=== PATIENT | female | born 1980 | race Caucasian/White ===

== ENCOUNTER 2017-01-03 07:34 | Emergency (ER) | payer OTHER ==
[2017-01-03] MEDS ORDERED: NITROFURANTOIN MACRO 100 MG CAPSULE PO STA (08:34)
[2017-01-03] MEDS ORDERED: NITROFURANTOIN MACRO 100 MG CAPSULE PO ONE (08:37)
== END 2017-01-03 08:48 | disposition home or self-care (01) ==
DX: N30.00 Acute cystitis without hematuria (principal); I10 Essential (primary) hypertension; E78.00 Pure hypercholesterolemia, unspecified; Z87.442 Personal history of urinary calculi; F17.200 Nicotine dependence, unspecified, uncomplicated
CPT/HCPCS: 81001; 87077; 87086; 87181; 99283; A9270

== ENCOUNTER 2017-04-25 16:29 | Outpatient (CLI) | payer OTHER ==
--- NOTE | 2017-04-26 10:47 | XRAY Report ---
THREE VIEW LEFT FIFTH TOE: 04/25/2017 CLINICAL INDICATION: Injury, pain. FINDINGS: AP, lateral, and oblique views of the left 5th toe demonstrate no evidence of fracture or dislocation. Soft tissue swelling is noted. No radiopaque foreign body is seen in the soft tissues. IMPRESSION: SOFT TISSUE SWELLING, BUT NO EVIDENCE OF FRACTURE. JOB #: [id number] EXT JOB #:[id number]
== END 2017-04-25 16:30 | disposition home or self-care (01) ==
LOC: DI 16:29
PROVIDERS: ATTEND Podiatrist
DX: S99.922A Unspecified injury of left foot, initial encounter (principal)
CPT/HCPCS: 73660

== ENCOUNTER 2017-06-28 20:25 | Emergency (ER) | payer OTHER ==
--- NOTE | 2017-06-28 21:05 | XRAY Preliminary Report ---
Exam: XR Chest 2 View PA/LAT IMPRESSION: Subtle right-sided infiltrates versus asymmetric bronchitis. [facility] SITE ID: [id number]
--- NOTE | 2017-06-28 21:08 | XRAY Report ---
EXAM: CHEST RADIOGRAPHY EXAM DATE: 06/28/2017 08:40 PM. CLINICAL HISTORY: Cough. COMPARISON: None. TECHNIQUE: 2 views. FINDINGS: Lungs/Pleura: Hazy increased interstitial markings in right base and suprahilar region with minimal p eribronchial cuffing. No consolidation, effusion, or pneumothorax. Clear left lung. Mediastinum: Heart and mediastinal contours are unremarkable. Upper lobe vessels not distended. Other: None. IMPRESSION: Subtle right-sided infiltrates versus asymmetric bronchitis. [facility] Referring Provider Line: [phone] SITE ID: [id number]
--- NOTE | 2017-06-28 21:31 | ED Physician Documentation ---
PD HPI URI - Stated complaint Stated Complaint: FEVER/CONGESTION - Chief complaint Chief Complaint: General - History obtained from History obtained from: Patient - History of Present Illness Timing - onset: How many days ago (2-3) Timing duration: Days Timing details: Abrupt onset, Still present Associated symptoms: Fever, Chills, Nasal congestion, Productive cough. 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: Hysterectomy - Present Medications Home Medications: Ambulatory Orders Medication Instructions Recorded Confirmed Lisinopril 10 mg PO DAILY 05/01/15 01/03/17 PARoxetine [Paxil] 40 mg PO DAILY 05/01/15 01/03/17 Telmisartan [Micardis] 80 mg PO DAILY 05/01/15 01/03/17 Nitrofurantoin [Macrobid] 100 mg PO BID #10 capsule 01/03/17 Albuterol Sulf [Ventolin Hfa 1 - 2 puffs INH Q4HR PRN #1 inhaler 06/28/17 Inhaler] Azithromycin [Zithromax] 250 mg PO DAILY #4 tablet 06/28/17 Dexamethasone [Decadron] 4 mg PO DAILY #5 tablet 06/28/17 guaiFENesin/CODEINE [Robitussin AC] 10 ml PO Q6H PRN #240 ml 06/28/17 - Allergies Allergies/Adverse Reactions: Allergies Allergy/AdvReac Type Severity Reaction Status Date / Time No Known Drug Allergies Allergy Verified 01/03/17 07:40 - Social History Does the pt smoke?: Yes Smoking Status: Current every day smoker Does the pt drink ETOH?: Yes Does the pt have substance abuse?: No - Immunizations Immunizations are current?: No PD ED PE NORMAL - Vitals Vital signs reviewed: Yes - General General: Alert and oriented X 3, No acute distress, Well developed/nourished - HEENT HEENT: Ears normal, Moist mucous membranes, Pharynx benign - Neck Neck: Supple, no meningeal sign, No adenopathy - Cardiac Cardiac: RRR, No murmur - Respiratory Respiratory: No: Clear bilaterally (some tightness/wheezing noted diffusely. No coarse sounds. ) - Abdomen Abdomen: Soft, Non tender - Derm Derm: Normal color, Warm and dry - Extremities Extremities: No edema, No calf tenderness / cord - Neuro Neuro: Alert and oriented X 3, No motor deficit, Normal speech Results - Vitals Vitals: Oxygen O2 Source Room air - Rads (name of study) chest xray Radiology: Prelim report reviewed (subtle right sided infiltrate) PD MEDICAL DECISION MAKING - ED course Complexity details: reviewed results, considered differential, d/w patient Departure - Departure Disposition: Home, Self Care Clinical Impression: Upper respiratory infection Qualifiers: URI type: unspecified URI Qualified Code(s): J06.9 - Acute upper respiratory infection, unspecified Pneumonia Qualifiers: Pneumonia type: due to unspecified organism Laterality: right Lung location: middle lobe of lung Qualified Code(s): J18.1 - Lobar pneumonia, unspecified organism Condition: Stable Record reviewed to determine appropriate education?: Yes Instructions: ED Upper Resp Infec Abx Tx, ED Pneumonia Adult Prescriptions: Albuterol Sulf [Ventolin Hfa Inhaler] 1 - 2 puffs INH Q4HR PRN #1 inhaler PRN Reason: Shortness Of Air/Wheezing Azithromycin [Zithromax] 250 mg PO DAILY #4 tablet Dexamethasone [Decadron] 4 mg PO DAILY #5 tablet guaiFENesin/CODEINE [Robitussin AC] 10 ml PO Q6H PRN #240 ml PRN Reason: Cough Comments: Sounds like an upper respiratory infection or bronchitis. This commonly is viral though your x-ray shows a suggestion of early pneumonia infiltrate on the right. Will treat with antibiotics to cover in case of bacterial. Otherwise use an albuterol inhaler 2 puffs 4 times a day for the next 7-10 days. Decadron for inflammation of the bronchioles daily for the next 5 days. Add cough medicine if needed for the coughing can help with some of the pains as well. Tylenol or ibuprofen if needed for fevers and aches. Rest at home for the next few days. Progress activity after that as able. Recheck if not improved over the next 5 or 6 days. Forms: Activity restrictions Discharge Date/Time: 06/28/17 22:35
[2017-06-28] MEDS ORDERED: HYDROcod/ACETAM 5/325 MG TABLET PO STA (21:58)
[2017-06-28] MEDS ORDERED: DEXAMETHASONE 10 MG/ML VIAL PO STA (21:58)
[2017-06-28] MEDS ORDERED: AZITHROMYCIN 250 MG TABLET PO STA (21:58)
[2017-06-28] MEDS ORDERED: ALBUTEROL NEB 2.5 MG/3 ML INH STA (21:58)
[2017-06-28] MEDS ORDERED: BENZONATATE 100 MG CAPSULE PO STA (21:58)
[2017-06-28] MEDS ORDERED: AZITHROMYCIN 250 MG TABLET PO ONE (22:20)
[2017-06-28] MEDS ORDERED: BENZONATATE 100 MG CAPSULE PO ONE (22:20)
[2017-06-28] MEDS ORDERED: ALBUTEROL NEB 2.5 MG/3 ML INH ONE (22:21)
[2017-06-28] MEDS ORDERED: DEXAMETHASONE 10 MG/ML VIAL ONE (22:21)
[2017-06-28] MEDS ORDERED: HYDROcod/ACETAM 5/325 MG TABLET ONE (22:21)
[2017-06-28 22:27] VITALS: BP 101/65
== END 2017-06-28 22:35 | disposition home or self-care (01) ==
LOC: ED 20:25
DX: J18.9 Pneumonia, unspecified organism (principal); J06.9 Acute upper respiratory infection, unspecified; I10 Essential (primary) hypertension; E78.00 Pure hypercholesterolemia, unspecified; Z87.442 Personal history of urinary calculi; F17.200 Nicotine dependence, unspecified, uncomplicated
CPT/HCPCS: 71020; 94640; 94664; 99283; A9270; J7613

== ENCOUNTER 2017-12-18 20:12 | Emergency (ER) | payer OTHER ==
[2017-12-18] MEDS ORDERED: GLUCAGON 1 MG/ML VIAL IVP STA (20:52)
[2017-12-18] MEDS ORDERED: ONDANSETRON 4 MG/2 ML VIAL IVP STA (20:52)
[2017-12-18] MEDS ORDERED: SIMETHICONE/SOD BICARB/CIT AC 1 EACH PACKET PO ONE (21:04)
[2017-12-18] MEDS ORDERED: WATER FOR INJECTION,STERILE 10 ML ONE (21:13)
--- NOTE | 2017-12-18 21:54 | ED Physician Documentation ---
PD HPI HEENT FB - Chief complaint Chief Complaint: Heent - History obtained from History obtained from: Patient, Family - History of Present Illness Timing - onset: Yesterday Location: Esophagus Similar symptoms before: Has not had sx before Recently seen: Not recently seen - Additional information Additional information: Patient is a 37 year old female with no significant past medical history who is presenting to the emergency department for difficulty swallowing solids. Patient states that she ate some chicken yesterday and it feels like it is tuck. Patient reports that she can swallow liquids but solids make her vomit. Review of Systems Constitutional: denies: Fever, Chills Eyes: reports: Reviewed and negative Ears: reports: Reviewed and negative Nose: reports: Reviewed and negative Throat: reports: Swallowed foreign body Cardiac: denies: Chest pain / pressure, Palpitations Respiratory: reports: Reviewed and negative GI: reports: Nausea, Vomiting : reports: Reviewed and negative Skin: denies: Rash, Lesions Musculoskeletal: reports: Reviewed and negative Neurologic: reports: Reviewed and negative Psychiatric: reports: Reviewed and negative Immunocompromised: denies: Immunocompromised PD PAST MEDICAL HISTORY - Past Medical History Past Medical History: Yes Cardiovascular: Hypertension, High cholesterol Respiratory: None Neuro: None Endocrine/Autoimmune: None : Kidney stones HEENT: None Psych: Depression Musculoskeletal: None Derm: None - Past Surgical History Past Surgical History: Yes 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 - Present Medications Home Medications: Ambulatory Orders Medication Instructions Recorded Confirmed PARoxetine [Paxil] 40 mg PO DAILY 05/01/15 01/03/17 Telmisartan [Micardis] 80 mg PO DAILY 05/01/15 01/03/17 - Allergies Allergies/Adverse Reactions: Allergies Allergy/AdvReac Type Severity Reaction Status Date / Time No Known Drug Allergies Allergy Verified 12/18/17 20:22 - Social History Does the pt smoke?: Yes Smoking Status: Current every day smoker Does the pt drink ETOH?: Yes Does the pt have substance abuse?: No - Immunizations Immunizations are current?: No - POLST Patient has POLST: No PD ED PE NORMAL - Vitals Vital signs reviewed: Yes - General General: Alert and oriented X 3, No acute distress - HEENT HEENT: Atraumatic, PERRL, Moist mucous membranes - Cardiac Cardiac: RRR - Respiratory Respiratory: No respiratory distress - Abdomen Abdomen: Soft - Derm Derm: Normal color, Warm and dry, No rash - Extremities Extremities: No deformity - Neuro Neuro: Alert and oriented X 3 - Psych Psych: Normal mood Results - Vitals Vitals: Vital Signs - 24 hr 12/18/17 20:19 Temperature 36.2 C L Heart Rate 86 Respiratory 18 Rate Blood Pressure 144/100 H O2 Saturation 99 Oxygen O2 Source Room air PD MEDICAL DECISION MAKING - ED course Complexity details: reviewed old records, reviewed results, re-evaluated patient , considered differential, d/w patient, d/w family ED course: Patient was seen and examined at bedside. Patient was able to swallow secretions. Patient was treated with glucagon, zofran and given carbonated beverages. Patient passed her food bolus. patient required no further work up and was stable for discharge with outpatient follow up. Departure - Departure Disposition: 01 Home, Self Care Clinical Impression: Foreign body in esophagus Condition: Good Instructions: ED Foreign Body Esophageal Rslv Follow-Up: primary,care provider [Other] - As Needed Comments: Your symptoms today were likely caused by an esophageal foreign body which has now resolved. You should try taking smaller bites and chewing more. You can continue with carbonated beverages this evening and slowly advance your diet. You may return to the emergency department at any time if your symptoms return.
[2017-12-18 22:09] VITALS: BP 146/99
== END 2017-12-18 22:10 | disposition home or self-care (01) ==
LOC: ED 20:12
DX: T18.108A Unspecified foreign body in esophagus causing other injury, initial encounter (principal); X58.XXXA Exposure to other specified factors, initial encounter; I10 Essential (primary) hypertension; E78.00 Pure hypercholesterolemia, unspecified; F17.200 Nicotine dependence, unspecified, uncomplicated
CPT/HCPCS: 96374; 99283; A9270

== ENCOUNTER 2018-08-05 11:15 | Emergency (ER) | payer OTHER ==
[2018-08-05 11:47] LABS: BILIRUBIN,URINE NEGATIVE (NEGATIVE); GLUCOSE, URINE (UA) NEGATIVE (NEGATIVE); KETONES,URINE (UA) NEGATIVE (NEGATIVE); LEUKOCYTE ESTERASE, URINE NEGATIVE (NEGATIVE); NITRITE,URINE NEGATIVE (NEGATIVE); OCCULT BLOOD,URINE NEGATIVE (NEGATIVE); PROTEIN,URINE NEGATIVE (NEGATIVE); UROBILINOGEN,URINE 1 (NORMAL) E.U./dL (NORMAL)
[2018-08-05 12:00] LABS: CLARITY,URINE CLEAR (CLEAR); HCG UR QUAL NEGATIVE
--- NOTE | 2018-08-05 12:35 | ED Physician Documentation ---
PD HPI BACK PAIN - Stated complaint Stated Complaint: LOW BK PX ON BOTH SIDES - Chief complaint Chief Complaint: Back Pain - History obtained from History obtained from: Patient - History of Present Illness Timing - onset: How many days ago (couple) Timing - duration: Days Timing - details: Gradual onset, Waxing and waning Location: Lower, Other (both sides at times) Quality: Pain, Spasm, Aching Associated symptoms: No: Fever, Weakness, Numbness, Incontinent of urine Improves with: Rest Worsened by: Movement, Twisting Contributing factors: Twisting. No: Trauma Similar symptoms before: Has not had sx before Recently seen: Not recently seen Review of Systems Constitutional: denies: Fever, Chills, Myalgias GI: denies: Abdominal Pain, Nausea, Vomiting : denies: Dysuria, Frequency, Incontinent, Hematuria Skin: denies: Rash, Lesions Musculoskeletal: reports: Back pain. 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 - Present Medications Home Medications: Ambulatory Orders Medication Instructions Recorded Confirmed PARoxetine [Paxil] 40 mg PO DAILY 05/01/15 01/03/17 Telmisartan [Micardis] 80 mg PO DAILY 05/01/15 01/03/17 Dexamethasone [Decadron] 4 mg PO DAILY #5 tablet 08/05/18 Hydrocodone/Acetaminophen [Crossroads 1 each PO Q6H PRN #20 tablet 08/05/18 5-325 Tablet] Methocarbamol [Robaxin] 500 mg PO TID PRN #25 tablet 08/05/18 Naproxen 375 mg PO BID #20 tablet 08/05/18 - Allergies Allergies/Adverse Reactions: Allergies Allergy/AdvReac Type Severity Reaction Status Date / Time No Known Drug Allergies Allergy Verified 08/05/18 11:35 - Social History Does the pt smoke?: Yes Smoking Status: Current every day smoker Does the pt drink ETOH?: Yes Does the pt have substance abuse?: No - Immunizations Immunizations are current?: No - POLST Patient has POLST: No PD ED PE NORMAL - Vitals Vital signs reviewed: Yes - General General: Alert and oriented X 3, No acute distress, Well developed/nourished - Abdomen Abdomen: Normal bowel sounds, Soft, Non tender, Non distended - Back Back: No CVA TTP, No spinal TTP, Other (tender in lower back muscles, more to the left. ) - Derm Derm: Normal color, Warm and dry, No rash - Extremities Extremities: No tenderness to palpate, Normal ROM s pain - Neuro Neuro: Alert and oriented X 3, No motor deficit, No sensory deficit Results - Vitals Vitals: Vital Signs - 24 hr 08/05/18 08/05/18 11:33 13:15 Temperature 35.7 C L Heart Rate 77 78 Respiratory 16 16 Rate Blood Pressure 136/81 H 130/80 O2 Saturation 97 98 Oxygen O2 Source Room air - Labs Labs: Laboratory Tests 08/05/18 11:37 Urine Color YELLOW Urine Clarity CLEAR Urine pH 6.0 Ur Specific [place] 1.025 Urine Protein NEGATIVE Urine Glucose (UA) NEGATIVE Urine Ketones NEGATIVE Urine Occult Blood NEGATIVE Urine Nitrite NEGATIVE Urine Bilirubin NEGATIVE Urine Urobilinogen 1 (NORMAL) Ur Leukocyte Esterase NEGATIVE Ur Microscopic Review NOT INDICATED Urine Culture Comments NOT INDICATED Urine HCG, Qual NEGATIVE PD MEDICAL DECISION MAKING - ED course Complexity details: considered differential (low back pain without red flags. ), d/w patient Departure - Departure Disposition: 01 Home, Self Care Clinical Impression: Low back pain Qualifiers: Chronicity: acute Back pain laterality: bilateral Sciatica presence: without sciatica Qualified Code(s): M54.5 - Low back pain Condition: Stable Record reviewed to determine appropriate education?: Yes Instructions: ED Low Back Pain Injury Follow-Up: Osvaldo Thompson II, PA-C [Primary Care Provider] - Prescriptions: Dexamethasone [Decadron] 4 mg PO DAILY #5 tablet Hydrocodone/Acetaminophen [Crossroads 5-325 Tablet] 1 each PO Q6H PRN #20 tablet PRN Reason: Pain Methocarbamol [Robaxin] 500 mg PO TID PRN #25 tablet PRN Reason: Spasms Naproxen 375 mg PO BID #20 tablet Comments: Heat and gentle stretching for the back. Naproxen twice daily for the next 7-10 days. Take it with food. Decadron also anti-inflammatory to reduce muscle inflammation daily for 5 days. Robaxin muscle relaxant for stiffness and spasm 3 times a day as needed. Add Tylenol or hydrocodone if needed for worse pain. Recheck if not improved over the next several days to week. Discharge Date/Time: 08/05/18 13:15
[2018-08-05 13:16] VITALS: BP 130/80
== END 2018-08-05 13:15 | disposition home or self-care (01) ==
LOC: ED 11:15
DX: M54.5 Low back pain (principal); I10 Essential (primary) hypertension; E78.00 Pure hypercholesterolemia, unspecified; F17.200 Nicotine dependence, unspecified, uncomplicated
CPT/HCPCS: 81001; 81003; 81025; 87086; 99283

== ENCOUNTER 2019-08-07 14:13 | Emergency (ER) | payer OTHER ==
--- NOTE | 2019-08-07 14:46 | XRAY Report ---
Reason: chest pain Procedure Date: 08/07/2019 Accession Number: [id number] / [id number] Procedure: XR - Chest 1 View X-Ray CPT Code: 64192 Final Report FULL RESULT: EXAM: CHEST RADIOGRAPHY EXAM DATE: 08/07/2019 02:38 PM. CLINICAL HISTORY: Chest pain. COMPARISON: CHEST 2 VIEW PA/LAT 06/28/2017 8:33 PM. TECHNIQUE: 1 view. FINDINGS: Lungs/Pleura: Mild interstitial prominence, less than in the previous study, possibly chronic changes of reactive airways disease. No localized infiltrate, consolidation, effusion, or pneumothorax. Mediastinum: Within exam limitations, the cardiomediastinal contour is normal. Upper lobe vessels not distended. Other: None. IMPRESSION: No acute disease. [facility]
[2019-08-07 15:04] LABS: BASOPHILS # (AUTO) 0.1 10^3/uL (0.0-0.1); BASOPHILS % (AUTO) 0.5 %; EOSINOPHILS # (AUTO) 0.1 10^3/uL (0.0-0.7); EOSINOPHILS % (AUTO) 1.2 %; HGB - HEMOGLOBIN 12.4 g/dL (12.0-16.0); LYMPHOCYTES # (AUTO) 1.5 10^3/uL (1.5-3.5); LYMPHOCYTES % (AUTO) 16.1 %; MEAN CORPUSCULAR HEMOGLOBIN 30.2 pg (27.0-31.0); MEAN CORPUSCULAR HGB CONC 33.7 g/dL (32.0-36.0); MEAN CORPUSCULAR VOLUME 89.5 fL (81.0-99.0); MEAN PLATELET VOLUME 9.9 fL (7.9-10.8); MONOCYTES # (AUTO) 0.4 10^3/uL (0.0-1.0); MONOCYTES % (AUTO) 3.9 %; NEUTROPHILS # (AUTO) 7.3 10^3/uL (1.5-6.6); PLT - PLATELET COUNT 376 10^3/uL (130-450); RED BLOOD COUNT 4.11 10^6/uL (4.20-5.40); RED CELL DISTRIBUTION WIDTH 12.6 % (12.0-15.0); WHITE BLOOD COUNT 9.4 x10^3/uL (4.8-10.8)
[2019-08-07 15:16] LABS: ALBUMIN 4.3 g/dL (3.2-5.5); ALBUMIN/GLOBULIN RATIO 1.3 (1.0-2.2); BILIRUBIN,TOTAL 0.2 mg/dL (0.2-1.0); CALCIUM 9.1 mg/dL (8.5-10.3); CREATININE 0.6 mg/dL (0.4-1.0); TOTAL PROTEIN 7.7 g/dL (6.7-8.2)
--- NOTE | 2019-08-07 15:20 | ED Physician Documentation ---
PD HPI CHEST PAIN - Stated complaint Stated Complaint: HEART BEATING FAST/COLD SWEATS - Chief complaint Chief Complaint: Cardiac - History obtained from History obtained from: Patient - History of Present Illness Timing - onset: Today (just prior to arrival) Timing - onset during: Rest Timing - duration: Minutes (5) Timing - details: Abrupt onset Severity Comments: moderate, felt shaky and had a feeling of her heart racing Quality: Other (a coldness across her chest) Location: Substernal Radiation: Other (none) Improved by: Other (improved without intervention when she started driving) Worsened by: No: Exertion, Inspiration, Eating, Movement, Palpation, Position Associated symptoms: Palpitations. No: Shortness of air, Diaphoresis, Nausea, Vomiting, Feeling faint / dizzy, General Weakness, Cough Similar symptoms before: Has not had sx before Recently seen: Not recently seen - Treatment prior to arrival Treatment prior to arrival: none Review of Systems Ten Systems: 10 systems reviewed and negative Constitutional: reports: Reviewed and negative. denies: Fever Cardiac: reports: Palpitations. denies: Chest pain / pressure Respiratory: denies: Dyspnea, Cough GI: reports: Nausea. denies: Abdominal Pain, Vomiting : reports: Reviewed and negative Skin: reports: Reviewed and negative Musculoskeletal: reports: Reviewed and negative Neurologic: reports: Other (felt lightheaded). 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 - Present Medications Home Medications: Ambulatory Orders Medication Instructions Recorded Confirmed PARoxetine [Paxil] 40 mg PO DAILY 05/01/15 08/07/19 Telmisartan [Micardis] 80 mg PO DAILY 05/01/15 01/03/17 Verapamil ER [Calan SA] 120 mg PO DAILY 08/07/19 08/07/19 hydrOXYzine pamoate [Hydroxyzine 25 mg PO PRN PRN 08/07/19 08/07/19 Pamoate] metFORMIN [Glucophage] 750 mg PO DAILY 11/13/19 11/13/19 - Allergies Allergies/Adverse Reactions: Allergies Allergy/AdvReac Type Severity Reaction Status Date / Time No Known Drug Allergies Allergy Verified 08/07/19 14:19 - Social History Does the pt smoke?: Yes Smoking Status: Current every day smoker Does the pt drink ETOH?: Yes Does the pt have substance abuse?: No - Immunizations Immunizations are current?: No - POLST Patient has POLST: No PD ED PE NORMAL - Vitals Vital signs reviewed: Yes - General General: Alert and oriented X 3, No acute distress, Well developed/nourished - HEENT HEENT: Atraumatic, PERRL, Pharynx benign - Neck Neck: Supple, no meningeal sign, No JVD - Cardiac Cardiac: RRR, No murmur, No gallop, No rub, Strong equal pulses - Respiratory Respiratory: No respiratory distress, Clear bilaterally - Abdomen Abdomen: Soft, Non tender, Non distended - Female Female : Deferred - Rectal Rectal: Deferred - Derm Derm: Normal color, Warm and dry, No rash - Extremities Extremities: No deformity, No tenderness to palpate, Normal ROM s pain, No edema - Neuro Neuro: Alert and oriented X 3 Eye Opening: Spontaneous Motor: Obeys Commands Verbal: Oriented GCS Score: 15 - Psych Psych: Normal mood, Normal affect PD ED PE EXPANDED - Cardiac Cardiac: No: Chest wall TTP Results - Vitals Vitals: Vital Signs - 24 hr 08/07/19 08/07/19 14:19 15:12 Temperature 36.8 C Heart Rate 79 77 Respiratory 17 18 Rate Blood Pressure 176/93 H 169/98 H O2 Saturation 97 96 Oxygen O2 Source Room air - EKG (time done) 14:38 Rate: Rate (enter#) (75) Rhythm: NSR [place]: Normal Intervals: Normal SC, QRS normal QRS: Normal Ischemia: Normal ST segments Compare to prior EKG: Unchanged from prior EKG Computer interpretation: Agree with computer - Labs Labs: Laboratory Tests 08/07/19 08/07/19 08/07/19 14:54 14:54 14:54 WBC 9.4 RBC 4.11 L Hgb 12.4 Hct 36.8 L MCV 89.5 MCH 30.2 MCHC 33.7 RDW 12.6 Plt Count 376 MPV 9.9 Neut # (Auto) 7.3 H Lymph # (Auto) 1.5 [place]ie # (Auto) 0.4 Eos # (Auto) 0.1 Baso # (Auto) 0.1 Absolute Nucleated RBC 0.00 Nucleated RBC % 0.0 Sodium 139 Potassium 3.7 Chloride 102 Carbon Dioxide 27 Anion Gap 10.0 BUN 14 Creatinine 0.6 Estimated GFR (MDRD) 111 Glucose 126 H Calcium 9.1 Total Bilirubin 0.2 AST 17 ALT 21 Alkaline Phosphatase 67 Troponin I High Sens < 2.3 L Total Protein 7.7 Albumin 4.3 Globulin 3.4 Albumin/Globulin Ratio 1.3 Lipase 40 - Rads (name of study) CXR Radiology: Final report received, See rad report PD MEDICAL DECISION MAKING - ED course Complexity details: reviewed results, re-evaluated patient, considered differential, d/w patient ED course: ddx- TAD, arrhythmia, PE, brugada, wpw, avnrd, ACS, panic attack, atypical chest pain 39 y/o F with hx and exam as documented, now asymptomatic, well appearing, normal vitals, normal ekg, neg troponin, neg CXR, no widened mediastinum to suggest TAD, PERC negative thus doubt PE and labs normal except mildly elevated blood sugar of 126 but pt just ate prior to arrival. She is hypertensive here without prior hx but is anxious thus advised her to f/u with PCP to recheck her BP this week and determine if she is actively hypertensive normally. Discussed findings with pt, she has no risk factors for ACS, had no exertional CP, I doubt arrhythmia given normal ekg findings she appears well and is stable for discharge with outpt f/u with her PCP advised. Pt given return precautions if recurrence of symptoms sob or new concerns. Departure - Departure Disposition: 01 Home, Self Care Clinical Impression: Atypical chest pain, Palpitations, Elevated blood pressure reading Condition: Stable Record reviewed to determine appropriate education?: Yes Instructions: ED Chest Pain Atypical Unkn Cause, ED Palpitations Follow-Up: Neo Martinez MD [Primary Care Provider] - Within 1 week (to recheck your blood pressure and your symptoms) Comments: Your labs, ekg and chest xray and heart enzymes were all normal today. Your symptoms are potentially consistent with anxiety or adverse effect of a stimulant. You did have an elevated Blood pressure in the ED today but given her your otherwise negative evaluation this is likely due to the stress of being in an emergency department. Regardless you should follow up with your regular doctor to recheck your blood pressure and your symptoms within a week or 2.
[2019-08-07 16:16] VITALS: BP 164/107
== END 2019-08-07 16:15 | disposition home or self-care (01) ==
LOC: ED 14:13
DX: R07.89 Other chest pain (principal); R00.2 Palpitations; I10 Essential (primary) hypertension; E10.9 Type 1 diabetes mellitus without complications; F17.200 Nicotine dependence, unspecified, uncomplicated
CPT/HCPCS: 36415; 71045; 80053; 83690; 84484; 85025; 93005; 99284

== ENCOUNTER 2020-11-19 00:43 | Emergency (ER) | payer OTHER ==
[2020-11-19 02:19] LABS: BILIRUBIN,URINE NEGATIVE (NEGATIVE); GLUCOSE, URINE (UA) NEGATIVE (NEGATIVE); KETONES,URINE (UA) NEGATIVE (NEGATIVE); LEUKOCYTE ESTERASE, URINE SMALL (NEGATIVE); NITRITE,URINE POSITIVE (NEGATIVE); OCCULT BLOOD,URINE TRACE-INTA (NEGATIVE); PH,URINE 7.5 PH (5.0-7.5); PROTEIN,URINE NEGATIVE (NEGATIVE); UROBILINOGEN,URINE 0.2 (NORMAL) E.U./dL (NORMAL)
[2020-11-19 02:20] LABS: CLARITY,URINE CLEAR (CLEAR); HCG UR QUAL NEGATIVE
--- NOTE | 2020-11-19 02:20 | ED Physician Documentation ---
PD HPI CHEST PAIN - Stated complaint Stated Complaint: CHEST PX, CHILLS, FEVER - Chief complaint Chief Complaint: Cardiac - History obtained from History obtained from: Patient - History of Present Illness Timing - onset: Today Timing - onset during: Rest Timing - duration: Hours Timing - details: Abrupt onset, Still present Pain level max: 8 Pain level now: 5 Quality: Pressure, Sharp Location: Left chest Radiation: No: Jaw, Neck, Back, Abdominal, Left upper extremity, Right upper extremity Improved by: Rest Worsened by: Inspiration Associated symptoms: Cough, Other (fever and chills). 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 She has had pneumonia previously and this feels similar. She does not have much in the way of a cough.She complains of some pain in the left chest just above the breast along the nipple line. She does not think she has been exposed to covid. Review of Systems Constitutional: reports: Fever, Chills, Myalgias Eyes: denies: Decreased vision Ears: denies: Ear pain Nose: denies: Rhinorrhea / runny nose, Congestion Throat: denies: Sore throat Cardiac: reports: Chest pain / pressure. denies: Palpitations, Pedal edema, Calf pain Respiratory: reports: Cough. denies: Dyspnea, Wheezing GI: denies: Abdominal Pain, Nausea, Vomiting : denies: Dysuria, Frequency PD PAST MEDICAL HISTORY - Past Medical History Past Medical History: Yes Cardiovascular: Hypertension, High cholesterol Respiratory: None Neuro: None GI: None DISPATCHER CHIEF OIL: None : Kidney stones HEENT: None Psych: Depression Musculoskeletal: None Derm: None - Past Surgical History Past Surgical History: Yes General: Cholecystectomy /DISPATCHER CHIEF OIL: Hysterectomy - Present Medications Home Medications: Ambulatory Orders Medication Instructions Recorded Confirmed PARoxetine [Paxil] 40 mg PO DAILY 05/01/15 08/07/19 Telmisartan [Micardis] 80 mg PO DAILY 05/01/15 01/03/17 Verapamil ER [Calan SA] 120 mg PO DAILY 08/07/19 08/07/19 hydrOXYzine pamoate [Hydroxyzine 25 mg PO PRN PRN 08/07/19 08/07/19 Pamoate] metFORMIN [Glucophage] 750 mg PO DAILY 08/07/19 08/07/19 Amox/Clav 875/125 [Augmentin] 1 each PO Q12H #20 tab 11/19/20 - Allergies Allergies/Adverse Reactions: Allergies Allergy/AdvReac Type Severity Reaction Status Date / Time No Known Drug Allergies Allergy Verified 11/19/20 00:52 - Social History Does the pt smoke?: Yes Smoking Status: Current every day smoker Does the pt drink ETOH?: Yes Does the pt have substance abuse?: No - Immunizations Immunizations are current?: No - POLST Patient has POLST: No PD ED PE NORMAL - Vitals Vital signs reviewed: Yes (hypertension ) - General General: Alert and oriented X 3, No acute distress, Well developed/nourished - HEENT HEENT: Atraumatic, PERRL, EOMI, Other (right TM is mildly inflamed with retained landmarks. 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, No motor deficit, Normal speech Eye Opening: Spontaneous Motor: Obeys Commands Verbal: Oriented GCS Score: 15 - Psych Psych: Normal mood, Normal affect Results - Vitals Vitals: Vital Signs - 24 hr 11/19/20 11/19/20 11/19/20 00:49 01:03 01:15 Temperature 37.3 C Heart Rate 90 92 93 Respiratory 16 26 H 15 Rate Blood Pressure 161/97 H 138/87 H 138/87 H O2 Saturation 98 97 97 11/19/20 11/19/20 11/19/20 02:20 02:36 03:07 Temperature 37.1 C Heart Rate 78 82 Respiratory 16 15 16 Rate Blood Pressure 141/86 H O2 Saturation 98 100 11/19/20 11/19/20 03:24 03:39 Temperature Heart Rate 68 Respiratory 16 16 Rate Blood Pressure 146/91 H O2 Saturation 99 Oxygen O2 Source Room air - EKG (time done) 0051 Rate: Rate (enter#) (89) Rhythm: NSR Compare to prior EKG: Unchanged from prior EKG (SPT 08-07-2019 no changes) Computer interpretation: Agree with computer - Labs Labs: Laboratory Tests 11/19/20 11/19/20 11/19/20 02:05 02:18 02:20 WBC 9.8 RBC 4.24 Hgb 12.8 Hct 37.6 MCV 88.7 MCH 30.2 MCHC 34.0 RDW 12.0 Plt Count 263 MPV 10.0 Neut # (Auto) 7.6 H Lymph # (Auto) 1.3 L Braxton # (Auto) 0.6 Eos # (Auto) 0.2 Baso # (Auto) 0.1 Absolute Nucleated RBC 0.00 Nucleated RBC % 0.0 Sodium Potassium Chloride Carbon Dioxide Anion Gap BUN Creatinine Estimated GFR (MDRD) Glucose Calcium Total Bilirubin AST ALT Alkaline Phosphatase Total Protein Albumin Globulin Albumin/Globulin Ratio Lipase Urine Color LIGHT YELLOW Urine Clarity CLEAR Urine pH 7.5 Ur Specific Points 1.010 Urine Protein NEGATIVE Urine Glucose (UA) NEGATIVE Urine Ketones NEGATIVE Urine Occult Blood TRACE-INTA Urine Nitrite POSITIVE H Urine Bilirubin NEGATIVE Urine Urobilinogen 0.2 (NORMAL) Ur Leukocyte Esterase SMALL H Urine RBC 0-5 Urine WBC 6-10 H Ur Squamous Epith Cells FEW Squamous Urine Bacteria Many H Ur Microscopic Review INDICATED Urine Culture Comments INDICATED Urine HCG, Qual NEGATIVE Nasal Adenovirus (PCR) NOT DETECTED Nasal B. parapertussis DNA (PCR) NOT DETECTED Nasal Coronavir 229E PCR NOT DETECTED Nasal Coronavir HKU1 PCR NOT DETECTED Nasal Coronavir NL63 PCR NOT DETECTED Nasal Coronavir OC43 PCR NOT DETECTED Nasal Enterovir/Rhinovir PCR NOT DETECTED Nasal Influenza B PCR NOT DETECTED Nasal Influenza A PCR NOT DETECTED Nasal Parainfluen 1 PCR NOT DETECTED Nasal Parainfluen 2 PCR NOT DETECTED Nasal Parainfluen 3 PCR NOT DETECTED Nasal Parainfluen 4 PCR NOT DETECTED Nasal RSV (PCR) NOT DETECTED Nasal B.pertussis DNA PCR NOT DETECTED Nasal C.pneumoniae (PCR) NOT DETECTED Adrian Human Metapneumo PCR NOT DETECTED Nasal M.pneumoniae (PCR) NOT DETECTED Nasal SARS-CoV-2 (PCR) NOT DETECTED 11/19/20 02:20 WBC RBC Hgb Hct MCV MCH MCHC RDW Plt Count MPV Neut # (Auto) Lymph # (Auto) Braxton # (Auto) Eos # (Auto) Baso # (Auto) Absolute Nucleated RBC Nucleated RBC % Sodium 143 Potassium 3.8 Chloride 98 L Carbon Dioxide 24 Anion Gap 21.0 H BUN 14 Creatinine 0.6 Estimated GFR (MDRD) 111 Glucose 113 H Calcium 9.7 Total Bilirubin 0.9 AST 13 ALT 16 Alkaline Phosphatase 60 Total Protein 7.0 Albumin 4.4 Globulin 2.6 Albumin/Globulin Ratio 1.7 Lipase 23 Urine Color Urine Clarity Urine pH Ur Specific Points Urine Protein Urine Glucose (UA) Urine Ketones Urine Occult Blood Urine Nitrite Urine Bilirubin Urine Urobilinogen Ur Leukocyte Esterase Urine RBC Urine WBC Ur Squamous Epith Cells Urine Bacteria Ur Microscopic Review Urine Culture Comments Urine HCG, Qual Nasal Adenovirus (PCR) Nasal B. parapertussis DNA (PCR) Nasal Coronavir 229E PCR Nasal Coronavir HKU1 PCR Nasal Coronavir NL63 PCR Nasal Coronavir OC43 PCR Nasal Enterovir/Rhinovir PCR Nasal Influenza B PCR Nasal Influenza A PCR Nasal Parainfluen 1 PCR Nasal Parainfluen 2 PCR Nasal Parainfluen 3 PCR Nasal Parainfluen 4 PCR Nasal RSV (PCR) Nasal B.pertussis DNA PCR Nasal C.pneumoniae (PCR) Adrian Human Metapneumo PCR Nasal M.pneumoniae (PCR) Nasal SARS-CoV-2 (PCR) - Rads (name of study) chest Radiology: Prelim report reviewed (Impression: Abnormality in the left hemithorax could represent a consolidation in the upper or lower lobe, a localized collection of fluid in the upper end of the major fissure, less likely hemorrhage or infarct. Follow-up to resolution recommended.), EMP read indepedently, See rad report PD MEDICAL DECISION MAKING - ED course Complexity details: reviewed old records, reviewed results, re-evaluated patient, considered differential, d/w patient ED course: Previously well 40-year-old female has developed fever cough congestion has an infiltrate on her chest x-ray and benign-appearing blood work. She does appear to have some evidence of urinary tract infection as well. She is administered Rocephin intravenously and we will start her on some Augmentin. I discussed with the patient her findings and have recommended she quarantine herself in her household until her coronavirus test is negative. She is given intravenous Toradol with some improvement in her pain she is given dexamethasone as well for treatment of the inflammatory pain of the infection. Departure - Departure Disposition: 01 Home, Self Care Clinical Impression: Urinary tract infection Qualifiers: Urinary tract infection type: acute cystitis Hematuria presence: without h ematuria Qualified Code(s): N30.00 - Acute cystitis without hematuria Pneumonia Qualifiers: Pneumonia type: due to unspecified organism Laterality: left Lung location: upper lobe of lung Qualified Code(s): J18.9 - Pneumonia, unspecified organism Condition: Stable Instructions: ED Pneumonia Adult, ED UTI Cystitis Female Follow-Up: Neo Martinez MD [Primary Care Provider] - Prescriptions: Amox/Clav 875/125 [Augmentin] 1 each PO Q12H #20 tab Comments: Today it appears you have pneumonia in the left lung and this is likely the cause of your pain. It also appears you may have evidence of urinary tract infection. You have been given a dose of Rocephin intravenously and the recommendation is to take the Augmentin twice per day for 10 days. You should have improvement in your symptoms day by day. If you have worsening or develop new symptoms return to the emergency department. Forms: Activity restrictions Discharge Date/Time: 11/19/20 04:07
[2020-11-19 02:23] LABS: BASOPHILS # (AUTO) 0.1 10^3/uL (0.0-0.1); BASOPHILS % (AUTO) 0.5 %; EOSINOPHILS # (AUTO) 0.2 10^3/uL (0.0-0.7); EOSINOPHILS % (AUTO) 1.6 %; HGB - HEMOGLOBIN 12.8 g/dL (12.0-16.0); LYMPHOCYTES # (AUTO) 1.3 10^3/uL (1.5-3.5); LYMPHOCYTES % (AUTO) 13.7 %; MEAN CORPUSCULAR HEMOGLOBIN 30.2 pg (27.0-31.0); MEAN CORPUSCULAR VOLUME 88.7 fL (81.0-99.0); MONOCYTES # (AUTO) 0.6 10^3/uL (0.0-1.0); MONOCYTES % (AUTO) 6.2 %; NEUTROPHILS # (AUTO) 7.6 10^3/uL (1.5-6.6); NEUTROPHILS % (AUTO) 77.7 %; PLT - PLATELET COUNT 263 10^3/uL (130-450); RED BLOOD COUNT 4.24 10^6/uL (4.20-5.40); WHITE BLOOD COUNT 9.8 x10^3/uL (4.8-10.8)
[2020-11-19 02:26] LABS: RBC,URINE 0-5 /HPF (0-5); SQUAMOUS EPITHELIAL CELL,UR FEW Squamous (<= Few)
[2020-11-19 02:27] LABS: BACTERIA,URINE Many /HPF (None Seen)
[2020-11-19 02:38] LABS: ALBUMIN 4.4 g/dL (3.2-5.5); ALBUMIN/GLOBULIN RATIO 1.7 (1.0-2.2); BILIRUBIN,TOTAL 0.9 mg/dL (0.2-1.0); CALCIUM 9.7 mg/dL (8.5-10.3); CREATININE 0.6 mg/dL (0.4-1.0)
[2020-11-19] MEDS ORDERED: cefTRIAXone 1 GM in SODIUM CHLORIDE 0.9% MINIBAG 100 ML IV STA (02:38)
[2020-11-19] MEDS ORDERED: KETOROLAC 30 MG/ML VIAL IVP STA (02:38)
[2020-11-19] MEDS ORDERED: cefTRIAXone 1 GM VIAL ONE (03:00)
[2020-11-19] MEDS ORDERED: DEXAMETHASONE 10 MG/ML VIAL IVP STA (03:23)
[2020-11-19 03:24] VITALS: BP 146/91
[2020-11-19 03:34] LABS: C. PNEUMONIAE- RESP PCR PANEL NOT DETECTED
--- NOTE | 2020-11-19 08:56 | XRAY Report ---
PROCEDURE: Chest 2 View X-Ray INDICATIONS: chest pain fever TECHNIQUE: 2 view(s) of the chest. COMPARISON: None. FINDINGS: Surgical changes and devices: None. Lungs and pleura: No pleural effusions or pneumothorax. Lungs are abnormal on the right but there i s a region of what appears to be posterior left mid lung pneumonia, possibly within the superior segm ent of the left lower lobe on the lateral view, without effusion.. Mediastinum: Mediastinal contours are normal. Heart size is normal. Bones and chest wall: No suspicious bony abnormalities. Soft tissues appear unremarkable. IMPRESSION: Single region of alveolar infiltration superior segment left lower lobe area. No effusio n found, no central mass lesion identified. Reviewed by: Shorty Pendleton MD on 11/19/2020 8:55 AM [facility] Approved by: Shorty Pendleton MD on 11/19/2020 8:55 AM [facility] Station ID: [id number]
== END 2020-11-19 04:07 | disposition home or self-care (01) ==
LOC: ED 00:43
DX: J18.9 Pneumonia, unspecified organism (principal); N30.00 Acute cystitis without hematuria; Z20.822 Contact with and (suspected) exposure to COVID-19; I10 Essential (primary) hypertension; F17.200 Nicotine dependence, unspecified, uncomplicated
CPT/HCPCS: 0202U; 36415; 71046; 80053; 81001; 81025; 83690; 85025; 87086; 87181; 93005; 96365; 96375; 99284; 81003

== ENCOUNTER 2021-01-02 09:03 | Emergency (ER) | payer OTHER ==
--- OUTSIDE RECORDS SUMMARY | 2021-01-02 09:07 | EXTERNAL MEDICAL SUMMARY RPT | Continuity of Care Document ---
:1980 Demographics Phone Unavailable Preferred Language Unknown Marital Status Unknown [employer] Affiliation Unknown Race Unknown Ethnic Group Unknown Author Organization [place] Address [address] [phone] Phone Social History date description facility [phone]
--- OUTSIDE RECORDS SUMMARY | 2021-01-02 09:11 | EXTERNAL MEDICAL SUMMARY RPT | Continuity of Care Document ---
:1980 Demographics Phone Unavailable Preferred Language Unknown Marital Status Unknown Yarsani Affiliation Unknown Race Unknown Ethnic Group Unknown Author Organization [place] Address [address] [phone] Phone Social History date description facility [phone]
--- NOTE | 2021-01-02 09:29 | ED Physician Documentation ---
PD HPI URI - Stated complaint Stated Complaint: SOA/FEVER - Chief complaint Chief Complaint: Resp - History obtained from History obtained from: Patient, Family - History of Present Illness Timing - onset: Yesterday Timing duration: Days (2) Timing details: Gradual onset, Still present Associated symptoms: Fever, Chills, Sweats, Dry cough, Dyspnea Contributing factors: Sick contact (daughter with COVID) Improves by: Rest Worsened by: Activity Similar symptoms before: Diagnosis (pneumonia) Recently seen: Emergency Dept - Additional information Additional information: 40-year-old female who was seen in the emergency department 2 months ago with pneumonia as developed cough congestion fever and shortness of breath again. She has a daughter who is Covid positive. She is concerned about Covid. Review of Systems Constitutional: reports: Fever, Chills, Myalgias, Fatigue Eyes: denies: Decreased vision Ears: denies: Ear pain Nose: denies: Rhinorrhea / runny nose, Congestion Throat: denies: Sore throat Cardiac: denies: Chest pain / pressure, Palpitations, Pedal edema, Calf pain Respiratory: reports: Dyspnea, Cough GI: reports: Nausea. denies: Abdominal Pain, Vomiting : denies: Dysuria, Frequency Skin: denies: Rash Musculoskeletal: denies: Neck pain, Back pain, Extremity pain Neurologic: denies: Generalized weakness, Focal weakness, Numbness PD PAST MEDICAL HISTORY - Past Medical History Past Medical History: Yes Cardiovascular: Hypertension, High cholesterol Respiratory: None Neuro: None Endocrine/Autoimmune: Other GI: None MECHANIC GENERAL OPERATIONAL TEST: None : Kidney stones HEENT: None Psych: Depression Musculoskeletal: None Derm: None, Herpes zoster - Past Surgical History Past Surgical History: Yes General: Cholecystectomy /MECHANIC GENERAL OPERATIONAL TEST: Hysterectomy - Present Medications Home Medications: Ambulatory Orders Medication Instructions Recorded Confirmed Telmisartan [Micardis] 80 mg PO DAILY 05/01/15 01/02/21 Verapamil ER [Calan SA] 120 mg PO DAILY 08/07/19 01/02/21 hydrOXYzine pamoate [Hydroxyzine 25 mg PO PRN PRN 08/07/19 01/02/21 Pamoate] metFORMIN [Glucophage] 750 mg PO DAILY 08/07/19 01/02/21 Galcanezumab-Gnlm [Emgality] 120 mg SQ ONCE 01/02/21 01/02/21 Lisinopril [Prinivil] 5 mg PO DAILY 01/02/21 01/02/21 - Allergies Allergies/Adverse Reactions: Allergies Allergy/AdvReac Type Severity Reaction Status Date / Time No Known Drug Allergies Allergy Verified 01/02/21 09:14 - Social History Does the pt smoke?: No Smoking Status: Former smoker Does the pt drink ETOH?: Yes Does the pt have substance abuse?: No - Immunizations Immunizations are current?: Yes - POLST Patient has POLST: No PD ED PE NORMAL - Vitals Vital signs reviewed: Yes (Hypertensive) - General General: Alert and oriented X 3, No acute distress, Well developed/nourished - HEENT HEENT: Atraumatic, PERRL, EOMI, Other (Tongue appears to have macroglossia) - Neck Neck: Supple, no meningeal sign, No bony TTP - Cardiac Cardiac: RRR, No murmur - Respiratory Respiratory: No respiratory distress, Clear bilaterally - Abdomen Abdomen: Normal bowel sounds, Soft, Non tender, Non distended, No organomegaly - Back Back: No CVA TTP, No spinal TTP - Derm Derm: Normal color, Warm and dry, No rash - Extremities Extremities: No deformity, No edema - Neuro Neuro: Alert and oriented X 3, 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 parapertussis DNA (PCR) NOT DETECTED Nasal Coronavir 229E PCR NOT DETECTED Nasal Coronavir HKU1 PCR NOT DETECTED Nasal Coronavir NL63 PCR NOT DETECTED Nasal Coronavir OC43 PCR NOT DETECTED Nasal Enterovir/Rhinovir PCR NOT DETECTED Nasal Influenza B PCR NOT DETECTED Nasal Influenza A PCR NOT DETECTED Nasal Parainfluen 1 PCR NOT DETECTED Nasal Parainfluen 2 PCR NOT DETECTED Nasal Parainfluen 3 PCR NOT DETECTED Nasal Parainfluen 4 PCR NOT DETECTED Nasal RSV (PCR) NOT DETECTED Nasal B.pertussis DNA PCR NOT DETECTED Nasal C.pneumoniae (PCR) NOT DETECTED Adrian Human Metapneumo PCR NOT DETECTED Nasal M.pneumoniae (PCR) NOT DETECTED Nasal SARS-CoV-2 (PCR) DETECTED A - Rads (name of study) chest Radiology: Prelim report reviewed (Impression: No acute cardiopulmonary process demonstrated radiographically.), EMP read indepedently, See rad report PD MEDICAL DECISION MAKING - ED course Complexity details: reviewed old records, reviewed results, re-evaluated patient, considered differential, d/w patient, d/w family ED course: 40-year-old previously well female has had pneumonia 1 month ago this now appears to be resolved she has now developed symptoms of coronavirus and has a positive PCR. She does not have significant comorbidities and does not qualify for monoclonal antibody therapy. Her son who has a high body mass index qualifies and he will receive this infusion. Departure - Departure Disposition: 01 Home, Self Care Clinical Impression: COVID-19 Condition: Stable Instructions: ED Bronchitis Asthmatic, COVID-19 [facility], Flu and Cold: Nutrition, Prevention and Treatment Tips Follow-Up: CADY BELTRAN DO [Primary Care Provider] -
--- NOTE | 2021-01-02 09:58 | XRAY Report ---
PROCEDURE: Chest 1 View X-Ray INDICATIONS: Dyspnea TECHNIQUE: One view of the chest was acquired. COMPARISON: 11/19/2020 FINDINGS: Surgical changes and devices: None. Lungs and pleura: No pleural effusions or pneumothorax. Lungs are clear. Mediastinum: Mediastinal contours appear normal. Heart size is normal. Bones and chest wall: No suspicious bony lesions. Overlying soft tissues appear unremarkable. IMPRESSION: No acute cardiopulmonary process demonstrated radiographically. Reviewed by: Yayo Ellis MD on 01/02/2021 9:56 AM PDT Approved by: Yayo Ellis MD on 01/02/2021 9:56 AM PDT Station ID: [id number]
[2021-01-02 10:53] LABS: B. PARAPERTUSSIS- RESP PCR PAN NOT DETECTED; B. PERTUSSIS- RESP PCR PANEL NOT DETECTED; C. PNEUMONIAE- RESP PCR PANEL NOT DETECTED; CORONAVIRUS 229E-RESP PCR NOT DETECTED; CORONAVIRUS HKU1-RESP PCR NOT DETECTED; CORONAVIRUS NL63-RESP PCR NOT DETECTED; CORONAVIRUS OC43-RESP PCR NOT DETECTED; HUMAN METAPNEUMOVIRUS NOT DETECTED; INFLUENZA A- RESP PCR PANEL NOT DETECTED; INFLUENZA B - RESP PCR PANEL NOT DETECTED; M. PNEUMONIAE- RESP PCR PANEL NOT DETECTED; PARAINFLUENZA VIRUS 1 NOT DETECTED; PARAINFLUENZA VIRUS 2 NOT DETECTED; PARAINFLUENZA VIRUS 3 NOT DETECTED; PARAINFLUENZA VIRUS 4 NOT DETECTED; RHINOVIRUS/ENTEROVIRUS NOT DETECTED; RSV- RESP PCR PANEL NOT DETECTED; SARS-CoV-2 -RESP PCR PANEL DETECTED
[2021-01-02 11:09] VITALS: BP 174/95
== END 2021-01-02 11:18 | disposition home or self-care (01) ==
LOC: ED 09:03
DX: U07.1 COVID-19 (principal); I10 Essential (primary) hypertension; Z87.891 Personal history of nicotine dependence
CPT/HCPCS: 0202U; 71045; 99284

== ENCOUNTER 2021-01-08 11:21 | Emergency (ER) | payer OTHER ==
--- OUTSIDE RECORDS SUMMARY | 2021-01-08 11:24 | EXTERNAL MEDICAL SUMMARY RPT | Continuity of Care Document ---
:1980 Demographics Phone Unavailable Preferred Language Unknown Marital Status Unknown Mandaen Affiliation Unknown Race Unknown Ethnic Group Unknown Author Organization [place] Address [address] [phone] Phone Social History date description facility [phone]
--- OUTSIDE RECORDS SUMMARY | 2021-01-08 12:19 | EXTERNAL MEDICAL SUMMARY RPT | Continuity of Care Document ---
:1980 Demographics Phone Unavailable Preferred Language Unknown Marital Status Unknown Oriental Orthodox Affiliation Unknown Race Unknown Ethnic Group Unknown Author Organization [place] Address [address] [phone] Phone Social History date description facility [phone]
[2021-01-08 12:21] LABS: BASOPHILS % (AUTO) 0.2 %; HCT - HEMATOCRIT 38.9 % (37.0-47.0); HGB - HEMOGLOBIN 13.9 g/dL (12.0-16.0); LYMPHOCYTES # (AUTO) 0.8 10^3/uL (1.5-3.5); MEAN CORPUSCULAR HEMOGLOBIN 31.2 pg (27.0-31.0); MEAN CORPUSCULAR HGB CONC 35.7 g/dL (32.0-36.0); MEAN CORPUSCULAR VOLUME 87.2 fL (81.0-99.0); MEAN PLATELET VOLUME 10.4 fL (7.9-10.8); MONOCYTES # (AUTO) 0.2 10^3/uL (0.0-1.0); MONOCYTES % (AUTO) 3.5 %; NEUTROPHILS # (AUTO) 3.9 10^3/uL (1.5-6.6); NEUTROPHILS % (AUTO) 80.1 %; PLT - PLATELET COUNT 239 10^3/uL (130-450); RED BLOOD COUNT 4.46 10^6/uL (4.20-5.40); WHITE BLOOD COUNT 4.9 x10^3/uL (4.8-10.8)
[2021-01-08] MEDS ORDERED: SODIUM CHLORIDE 0.9% 1,000 ML IV STA (12:25)
[2021-01-08 12:30] LABS: ALBUMIN 4.2 g/dL (3.2-5.5); ALBUMIN/GLOBULIN RATIO 1.3 (1.0-2.2); BILIRUBIN,TOTAL 0.6 mg/dL (0.2-1.0); CALCIUM 8.9 mg/dL (8.5-10.3); CREATININE 0.7 mg/dL (0.4-1.0); POTASSIUM 3.5 mmol/L (3.5-5.0); TOTAL PROTEIN 7.5 g/dL (6.7-8.2)
--- NOTE | 2021-01-08 12:30 | ED Physician Documentation ---
History of Present Illness - Stated complaint Stated Complaint: ABD Pain C+ - Chief complaint Chief Complaint: Abd Pain - Additonal information Additional information: 40-year-old female presents to the emergency department for evaluation of worsening rigors fever cough and left lower quadrant abdominal pain. She was diagnosed Covid positive on the 10th of this month. She initially felt that she was getting better until yesterday when the cough fevers worsened as well as new onset lower belly pain. In the room she appears very uncomfortable with shaking. Past medical history most significant for migraines and hypertension PSH: Cholecystectomy partial hysterectomy with uterine removal. She retains her ovaries. Social: non-smoker and rare alcohol use Meds: Lisinopril Emgality. Review of Systems Constitutional: reports: Fever, Chills, Myalgias Eyes: reports: Reviewed and negative Ears: reports: Reviewed and negative Nose: reports: Reviewed and negative Throat: reports: Reviewed and negative Cardiac: reports: Chest pain / pressure. denies: Palpitations Respiratory: reports: Dyspnea, Cough GI: reports: Abdominal Pain, Diarrhea. denies: Abdominal Swelling, Nausea, Vomiting : denies: Dysuria, Frequency, Hesitancy Musculoskeletal: denies: Neck pain, Back pain Neurologic: reports: Reviewed and negative Psychiatric: reports: Reviewed and negative PD PAST MEDICAL HISTORY - Past Medical History Cardiovascular: Hypertension, High cholesterol Respiratory: None Neuro: None Endocrine/Autoimmune: Other GI: None CHANGE COORDINATOR: None : Kidney stones HEENT: None Psych: Depression Musculoskeletal: None Derm: None, Herpes zoster - Past Surgical History Past Surgical History: Yes General: Cholecystectomy /CHANGE COORDINATOR: Hysterectomy - Present Medications Home Medications: Ambulatory Orders Medication Instructions Recorded Confirmed Telmisartan [Micardis] 80 mg PO DAILY 05/01/15 01/02/21 Verapamil ER [Calan SA] 120 mg PO DAILY 08/07/19 01/02/21 Galcanezumab-Gnlm [Emgality] 120 mg SQ ONCE 01/02/21 01/02/21 Lisinopril [Prinivil] 5 mg PO DAILY 01/02/21 01/02/21 cephALEXin [Keflex] 500 mg PO Q6H #28 01/08/21 - Allergies Allergies/Adverse Reactions: Allergies Allergy/AdvReac Type Severity Reaction Status Date / Time No Known Drug Allergies Allergy Verified 01/08/21 11:48 - Social History Does the pt smoke?: No Smoking Status: Former smoker Does the pt drink ETOH?: Yes Does the pt have substance abuse?: No - Immunizations Immunizations are current?: Yes - POLST Patient has POLST: No PD ED PE EXPANDED - General General: Alert, Other (Guarding her left lower abdomen with rigors in the room.) - Cardiac Cardiac: Regular Rate, Radial strong equal, Pedal strong equal, Cap refill < 2 sec. No: Murmur Present - Respiratory Respiratory: Clear to ausultation angela. No: Distress, Labored - Abdomen Abdomen: Normal Bowel sounds, Tender to palpation (Negative McBurney's.), Guarding. No: Rebound - Back Back: Normal exam. No: CVA TTP right, CVA TTP left - Neuro Neuro: Alert and Oriented X 3, CNII-XII intact - GCS Eye Opening: Spontaneous Motor: Obeys Commands Verbal: Oriented Total: 15 Results - Vitals Vitals: Vital Signs - 24 hr 01/08/21 01/08/21 01/08/21 11:21 12:31 13:50 Temperature 38 C H 39.5 C H Heart Rate 83 102 H 97 Respiratory 18 16 16 Rate Blood Pressure 183/113 H 181/98 H 199/99 H O2 Saturation 98 100 97 01/08/21 01/08/21 01/08/21 14:40 15:05 15:06 Temperature 39.5 C H 39.5 C H Heart Rate 125 H 118 H Respiratory 18 Rate Blood Pressure 146/93 H O2 Saturation 97 01/08/21 16:38 Temperature 38.1 C H Heart Rate 109 H Respiratory 20 Rate Blood Pressure 128/91 H O2 Saturation 95 Oxygen O2 Source Room air - Labs Labs: Laboratory Tests 01/08/21 01/08/21 01/08/21 11:28 11:28 12:24 WBC 4.9 RBC 4.46 Hgb 13.9 Hct 38.9 MCV 87.2 MCH 31.2 H MCHC 35.7 RDW 12.0 Plt Count 239 MPV 10.4 Neut # (Auto) 3.9 Lymph # (Auto) 0.8 L [place] # (Auto) 0.2 Eos # (Auto) 0.0 Baso # (Auto) 0.0 Absolute Nucleated RBC 0.00 Nucleated RBC % 0.0 Sodium 139 Potassium 3.5 Chloride 106 Carbon Dioxide 25 Anion Gap 8.0 BUN 13 Creatinine 0.7 Estimated GFR (MDRD) 93 Glucose 92 Lactic Acid Calcium 8.9 Total Bilirubin 0.6 AST 30 ALT 45 Alkaline Phosphatase 87 Total Protein 7.5 Albumin 4.2 Globulin 3.3 Albumin/Globulin Ratio 1.3 Lipase 25 Urine Color YELLOW Urine Clarity HAZY Urine pH 7.0 Ur Specific [place] 1.020 Urine Protein 30 H Urine Glucose (UA) NEGATIVE Urine Ketones NEGATIVE Urine Occult Blood MODERATE H Urine Nitrite POSITIVE H Urine Bilirubin NEGATIVE Urine Urobilinogen 2 H Ur Leukocyte Esterase TRACE H Urine RBC 11-25 H Urine WBC 6-10 H Ur Squamous Epith Cells FEW Squamous Urine Bacteria Moderate H Ur Microscopic Review INDICATED Urine Culture Comments INDICATED Urine HCG, Qual NEGATIVE 01/08/21 12:45 WBC RBC Hgb Hct MCV MCH MCHC RDW Plt Count MPV Neut # (Auto) Lymph # (Auto) [place] # (Auto) Eos # (Auto) Baso # (Auto) Absolute Nucleated RBC Nucleated RBC % Sodium Potassium Chloride Carbon Dioxide Anion Gap BUN Creatinine Estimated GFR (MDRD) Glucose Lactic Acid 1.8 Calcium Total Bilirubin AST ALT Alkaline Phosphatase Total Protein Albumin Globulin Albumin/Globulin Ratio Lipase Urine Color Urine Clarity Urine pH Ur Specific [place] Urine Protein Urine Glucose (UA) Urine Ketones Urine Occult Blood Urine Nitrite Urine Bilirubin Urine Urobilinogen Ur Leukocyte Esterase Urine RBC Urine WBC Ur Squamous Epith Cells Urine Bacteria Ur Microscopic Review Urine Culture Comments Urine HCG, Qual PD MEDICAL DECISION MAKING - ED course Complexity details: reviewed old records, reviewed results, re-evaluated patient, considered differential, d/w patient ED course: 40-year-old female presents emergency department for evaluation of fever lower abdominal pain. This is in the setting of the recent Covid positive infection that was diagnosed on the of this month. She does report a cough but does not feel that it is worsening at this time. On initial exam she had rigors and chills but no fever though she did develop a fever during the course of the emergency department visit. Screening chest x- ray was unremarkable and did not show findings consistent with pneumonia or advancement of her COVID-19 disease. Screening labs showed no leukocytosis and her lactic acid was normal. However she did have a markedly positive urine. She was given 1 gmof ceftriaxone int he ED. I did discuss the case with Dr. mishra as pt clinically presented as 'septic" however he did nto feel that she warranted admission as she was otherwise healthy and would likely be okay at home with oral antibiotics. Plan was discussed with the patient and she is in agreement. emergent and worrisome return precautions discussed Departure - Departure Disposition: Home, Self Care Clinical Impression: Urinary tract infection Qualifiers: Urinary tract infection type: acute cystitis Hematuria presence: without hematuria Qualified Code(s): N30.00 - Acute cystitis without hematuria Condition: Stable Record reviewed to determine appropriate education?: Yes Instructions: ED UTI Cystitis Female Follow-Up: CADY BELTRAN DO [Primary Care Provider] - Prescriptions: cephALEXin [Keflex] 500 mg PO Q6H #28 Comments: Adore gaston were seen today in the emergency department for fever and lower abdominal pain. You do have a urinary tract infection. I have written a prescription for an antibiotic called Keflex. Please fill the prescription and begin taking as directed. I would expect that this fevers and chills begin to improve over the next 24 to 48 hours if they are not improving or you are having worsening symptoms please return immediately to the emergency department. Discharge Date/Time: 01/08/21 16:47
[2021-01-08 12:38] LABS: BILIRUBIN,URINE NEGATIVE (NEGATIVE); GLUCOSE, URINE (UA) NEGATIVE (NEGATIVE); KETONES,URINE (UA) NEGATIVE (NEGATIVE); LEUKOCYTE ESTERASE, URINE TRACE (NEGATIVE); NITRITE,URINE POSITIVE (NEGATIVE); OCCULT BLOOD,URINE MODERATE (NEGATIVE); PROTEIN,URINE 30 mg/dL (NEGATIVE); UROBILINOGEN,URINE 2 E.U./dL (NORMAL)
[2021-01-08 12:41] LABS: CLARITY,URINE HAZY (CLEAR); HCG UR QUAL NEGATIVE
[2021-01-08 12:48] LABS: BACTERIA,URINE Moderate /HPF (None Seen); SQUAMOUS EPITHELIAL CELL,UR FEW Squamous (<= Few)
--- NOTE | 2021-01-08 12:52 | XRAY Report ---
PROCEDURE: Chest 1 View X-Ray INDICATIONS: worsening cough, fever; Covid positive TECHNIQUE: One view of the chest was acquired. COMPARISON: 01/02/2021 FINDINGS: Surgical changes and devices: None. Lungs and pleura: No pleural effusions or pneumothorax. Lungs are clear. Mediastinum: Mediastinal contours appear normal. Heart size is normal. Bones and chest wall: No suspicious bony lesions. Overlying soft tissues appear unremarkable. IMPRESSION: No evidence acute pulmonary process. Reviewed by: Cristhian Mtz MD on 01/08/2021 12:51 PM PDT Approved by: Cristhian Mzt MD on 01/08/2021 12:51 PM PDT Station ID: [id number]
[2021-01-08] MEDS ORDERED: cefTRIAXone 1 GM in SODIUM CHLORIDE 0.9% MINIBAG 100 ML IV STA (13:09)
[2021-01-08] MEDS ORDERED: IBUPROFEN 600 MG TABLET PO STA (13:53)
[2021-01-08 16:39] VITALS: BP 128/91
== END 2021-01-08 16:47 | disposition home or self-care (01) ==
LOC: ED 11:21
DX: N30.00 Acute cystitis without hematuria (principal); I10 Essential (primary) hypertension; Z87.891 Personal history of nicotine dependence; Z86.16 Personal history of COVID-19
CPT/HCPCS: 36415; 71045; 80053; 81001; 81025; 83605; 83690; 85025; 87086; 87181; 96365; 99284; A9270; 81003

== ENCOUNTER 2023-01-05 23:36 | Emergency (ER) | payer OTHER ==
--- OUTSIDE RECORDS SUMMARY | 2023-01-06 00:04 | EXTERNAL MEDICAL SUMMARY RPT | Continuity of Care Document ---
:1980 Author Organization [facility] Address [address] [place] [address] Phone Care Team Providers Name Role Phone Sylvester Quigley Unavailable Unavailable Allergies and Intolerances date description facility type (no date) No Known Drug Allergies Formerly [facility] (unkn own) Encounters No information. Functional Status No information. Immunizations No information. Medications date description facility 2023-01-03 00:00 Gabapentin [facility] 2023-01-03 00:00 Methylprednisolone [facility] 2023-01-03 00:00 Hydrocodone-Acetaminophen [facility] Problems date description facility 2023-01-03 00:00 Cervical radiculopathy at [facility] Procedures No information. Results/Labs test date author facility value unit interpret ation Result panel 1 (unknown) (no (unknown) (unknown) (no value) (units (unk nown) date) unknown) (unknown) (no (unknown) (unknown) #10 tabs (units (unkno wn) date) unknown) (unknown) (no (unknown) (unknown) 1 per month. (units (u nknown) date) unknown) (unknown) (no (unknown) (unknown) 1 tab PO DAILY (units (unknown) date) unknown) (unknown) (no (unknown) (unknown) 10 mg PO DAILY (units (unknown) date) unknown) (unknown) (no (unknown) (unknown) 120 mg PO DAILY (units (unknown) date) Qty: 90 1RF unknown) (unknown) (no (unknown) (unknown) 240 mg SUBCUT (units ( unknown) date) ONCE Qty: 1 12RF unknown) (unknown) (no (unknown) (unknown) 25 mg PO DAILY (units (unknown) date) unknown) (unknown) (no (unknown) (unknown) 3 tabs/day (24hr) (units (unknown) date) PO unknown) (unknown) (no (unknown) (unknown) [id number] (units (unkno wn) date) unknown) (unknown) (no (unknown) (unknown) 40 mg PO DAILY (units (unknown) date) unknown) (unknown) (no (unknown) (unknown) 42-year-old (units (un known) date) female former unknown) smoker with history of diabetes and chronic migraines (unknown) (no (unknown) (unknown) 5 mg PO ONCE (units (u nknown) date) unknown) (unknown) (no (unknown) (unknown) 750 mg PO DAILY (units (unknown) date) unknown) (unknown) (no (unknown) (unknown) Age/Sex: 42 / F (units (unknown) date) unknown) (unknown) (no (unknown) (unknown) Allergies (units (unkn own) date) unknown) (unknown) (no (unknown) (unknown) Allergy/AdvReac (units (unknown) date) Type Severity unknown) Reaction Status Date / Time (unknown) (no (unknown) (unknown) : 1980 (units (unknown) date) Acct:[id number] unknown) (unknown) (no (unknown) (unknown) Date of Service: (units (unknown) date) 01/03/23 unknown) (unknown) (no (unknown) (unknown) Departure (units (unkn own) date) unknown) (unknown) (no (unknown) (unknown) Diabetes mellitus (units (unknown) date) unknown) (unknown) (no (unknown) (unknown) Discharge Plan (units (unknown) date) unknown) (unknown) (no (unknown) (unknown) Dose Instruction: (units (unknown) date) unknown) (unknown) (no (unknown) (unknown) ER Physician: (units ( unknown) date) Sylvester Quigley D.O. unknown) (unknown) (no (unknown) (unknown) Emergency Report (units (unknown) date) unknown) (unknown) (no (unknown) (unknown) Emgality Syringe (units (unknown) date) 120 mg/mL syringe unknown) (unknown) (no (unknown) (unknown) Family History (units (unknown) date) (Reviewed 10/31/19 unknown) @ 11:58 by Clyde Paez MD) (unknown) (no (unknown) (unknown) Father (units (unkno wn) date) Developmental unknown) delay (unknown) (no (unknown) (unknown) General (units (unkno wn) date) unknown) (unknown) (no (unknown) (unknown) HPI - General (units ( unknown) date) Adult unknown) (unknown) (no (unknown) (unknown) HPI narrative: (units (unknown) date) unknown) (unknown) (no (unknown) (unknown) History of (units (unk nown) date) unknown) (unknown) (no (unknown) (unknown) History of (units (unk nown) date) Present Illness unknown) (unknown) (no (unknown) (unknown) History of (units (unk nown) date) cholecystectomy unknown) (unknown) (no (unknown) (unknown) History of (units (unk nown) date) hysterectomy unknown) (unknown) (no (unknown) (unknown) History of (units (unk nown) date) lithotripsy unknown) (unknown) (no (unknown) (unknown) Home Medications (units (unknown) date) unknown) (unknown) (no (unknown) (unknown) Formerly [facility] (units (unknown) date) [address] [place] [address] unknown) [place] [address] (unknown) (no (unknown) (unknown) Medication (units (unk nown) date) Instructions unknown) Recorded Confirmed (unknown) (no (unknown) (unknown) Medication (units (unk nown) date) Instructions unknown) Recorded (unknown) (no (unknown) (unknown) Mental disability (units (unknown) date) unknown) (unknown) (no (unknown) (unknown) Migraines (units (unkn own) date) unknown) (unknown) (no (unknown) (unknown) Miscellaneous,Doc (units (unknown) date) MD irena [Primary unknown) Care Provider] (unknown) (no (unknown) (unknown) Mother (units (unkno wn) date) Hypertension unknown) (unknown) (no (unknown) (unknown) No Action (units (unkn own) date) unknown) (unknown) (no (unknown) (unknown) No Known Drug (units ( unknown) date) Allergies Allergy unknown) Verified 10/31/19 11:25 (unknown) (no (unknown) (unknown) Patient History (units (unknown) date) unknown) (unknown) (no (unknown) (unknown) Patient: (units (unkno wn) date) Adore Munoz unknown) MR#: [id number] (unknown) (no (unknown) (unknown) Prescriptions: (units (unknown) date) unknown) (unknown) (no (unknown) (unknown) Previous Rx's (units ( unknown) date) unknown) (unknown) (no (unknown) (unknown) Referrals: (units (unk nown) date) unknown) (unknown) (no (unknown) (unknown) Related Data (units (u nknown) date) unknown) (unknown) (no (unknown) (unknown) Respiratory (units (un known) date) disease unknown) (unknown) (no (unknown) (unknown) Rx Instructions: (units (unknown) date) unknown) (unknown) (no (unknown) (unknown) See Rx (units (unkno wn) date) Instructions PO unknown) .COMPLEX Qty: 10 2RF (unknown) (no (unknown) (unknown) Signed By: (units (unk nown) date) unknown) (unknown) (no (unknown) (unknown) Smoking Status: (units (unknown) date) Former smoker unknown) (unknown) (no (unknown) (unknown) Social History (units (unknown) date) (Updated 10/25/19 unknown) @ 08:21 by Cristel Buenrostro) (unknown) (no (unknown) (unknown) Stated complaint: (units (unknown) date) stiff neck and unknown) shoulders (unknown) (no (unknown) (unknown) Surgical History (units (unknown) date) (Reviewed 10/31/19 unknown) @ 11:58 by Clyde Paez MD) (unknown) (no (unknown) (unknown) Time Seen by (units (u nknown) date) Provider: 01/03/23 unknown) 09:18 (unknown) (no (unknown) (unknown) alcohol intake: (units (unknown) date) current unknown) (unknown) (no (unknown) (unknown) as a single dose; (units (unknown) date) administer as two unknown) 120 mg injections at separate sites. then (unknown) (no (unknown) (unknown) galcanezumab-gnlm (units (unknown) date) 120 mg/mL 240 mg unknown) (2 mL) SUBCUT ONCE #1 mL 06/28/19 (unknown) (no (unknown) (unknown) hydroxyzine HCl (units (unknown) date) 25 mg tablet 25 mg unknown) PO DAILY 05/09/19 05/09/19 (unknown) (no (unknown) (unknown) hydroxyzine HCl (units (unknown) date) 25 mg tablet unknown) (unknown) (no (unknown) (unknown) marital status: (units (unknown) date) unknown) (unknown) (no (unknown) (unknown) metformin 1,000 (units (unknown) date) mg tablet 750 mg unknown) PO DAILY 05/09/19 05/09/19 (unknown) (no (unknown) (unknown) metformin 1,000 (units (unknown) date) mg tablet unknown) (unknown) (no (unknown) (unknown) mg-hydrochlorothi (units (unknown) date) azide 25 mg unknown) (unknown) (no (unknown) (unknown) paroxetine HCl 10 (units (unknown) date) mg tablet 10 mg PO unknown) DAILY 05/09/19 05/09/19 (unknown) (no (unknown) (unknown) paroxetine HCl 10 (units (unknown) date) mg tablet unknown) (unknown) (no (unknown) (unknown) paroxetine HCl 40 (units (unknown) date) mg tablet 40 mg PO unknown) DAILY 05/09/19 05/09/19 (unknown) (no (unknown) (unknown) paroxetine HCl 40 (units (unknown) date) mg tablet unknown) (unknown) (no (unknown) (unknown) presents with a (units (unknown) date) chief complaint of unknown) stiff neck and shoulders (unknown) (no (unknown) (unknown) release (units (unkno wn) date) unknown) (unknown) (no (unknown) (unknown) replaces micardis (units (unknown) date) unknown) (unknown) (no (unknown) (unknown) rizatriptan 10 mg (units (unknown) date) tablet (Maxalt) unknown) See Rx Instructions PO .COMPLEX 06/14/19 (unknown) (no (unknown) (unknown) rizatriptan 5 mg (units (unknown) date) tablet 5 mg PO unknown) ONCE 05/09/19 05/09/19 (unknown) (no (unknown) (unknown) rizatriptan 5 mg (units (unknown) date) tablet unknown) (unknown) (no (unknown) (unknown) rizatriptan (units (un known) date) [Maxalt] 10 mg unknown) tablet (unknown) (no (unknown) (unknown) subcutaneous (units (u nknown) date) syringe (Emgality) unknown) (unknown) (no (unknown) (unknown) tablet (Micardis (units (unknown) date) HCT) unknown) (unknown) (no (unknown) (unknown) take 1 tab at (units ( unknown) date) onset of headache; unknown) if no relief may repeat 1 tab in 2hr; max = (unknown) (no (unknown) (unknown) telmisartan 80 1 (units (unknown) date) tab PO DAILY unknown) 05/09/19 05/09/19 (unknown) (no (unknown) (unknown) telmisartan-hydro (units (unknown) date) chlorothiazid unknown) [Micardis HCT] 80-25 mg tablet (unknown) (no (unknown) (unknown) verapamil 120 mg (units (unknown) date) tablet extended unknown) release (unknown) (no (unknown) (unknown) verapamil 120 mg (units (unknown) date) tablet,extended unknown) 120 mg PO DAILY #90 tabs 11/18/19 Result panel 2 (unknown) (no (unknown) (unknown) (no value) (units (unk nown) date) unknown) (unknown) (no (unknown) (unknown) [id number] (units (unkno wn) date) unknown) (unknown) (no (unknown) (unknown) 01/03/23 (units (unkno wn) date) unknown) (unknown) (no (unknown) (unknown) [address] [place] [address] (units (unknown) date) unknown) (unknown) (no (unknown) (unknown) Accession (units (unkn own) date) Number: unknown) [id number] (unknown) (no (unknown) (unknown) Age/Sex: 42 / F (units (unknown) date) Date of Service: unknown) (unknown) (no (unknown) (unknown) Alignment and (units ( unknown) date) Curvature: There unknown) is normal bony alignment. Straightening of the (unknown) (no (unknown) (unknown) [place] (units ( unknown) date) [id number] unknown) (unknown) (no (unknown) (unknown) Approved by: (units (u nknown) date) theodore Lux M.D. on 01/03/2023 at 17:57 (unknown) (no (unknown) (unknown) Arthropathy (units (un known) date) unknown) (unknown) (no (unknown) (unknown) Bone Marrow: (units (u nknown) date) Marrow unknown) demonstrates normal overall signal. (unknown) (no (unknown) (unknown) C2-C3: Normal (units ( unknown) date) appearance. unknown) (unknown) (no (unknown) (unknown) C3-C4: Normal (units ( unknown) date) appearance. unknown) (unknown) (no (unknown) (unknown) C4-C5: Normal (units ( unknown) date) appearance. unknown) (unknown) (no (unknown) (unknown) C5-C6: Normal (units ( unknown) date) appearance. unknown) (unknown) (no (unknown) (unknown) C6-7 central (units (u nknown) date) disc protrusion unknown) indents the ventral surface of the cord. (unknown) (no (unknown) (unknown) C6-C7: Disc (units (un known) date) space narrowing unknown) and 3 mm central disc protrusion minimally indents (unknown) (no (unknown) (unknown) C7-T1: Normal (units ( unknown) date) appearance. unknown) (unknown) (no (unknown) (unknown) COMPARISON: (units (un known) date) None. unknown) (unknown) (no (unknown) (unknown) : 1980 (units (unknown) date) Acct:[id number] unknown) (unknown) (no (unknown) (unknown) FINDINGS: (units (unkn own) date) unknown) (unknown) (no (unknown) (unknown) IMPRESSION: (units (un known) date) unknown) (unknown) (no (unknown) (unknown) INDICATIONS: (units (u nknown) date) severe pain, unknown) radicular signs, ?disc on outside xray (unknown) (no (unknown) (unknown) Image quality: (units (unknown) date) Excellent. unknown) (unknown) (no (unknown) (unknown) Formerly [facility] (units (unknown) date) unknown) (unknown) (no (unknown) (unknown) Loc: ED (units (unkno wn) date) unknown) (unknown) (no (unknown) (unknown) Magnetic (units (unkno wn) date) Resonance Report unknown) (unknown) (no (unknown) (unknown) Noncontrast (units (un known) date) sagittal T1 spin unknown) echo and T2 fast spin echo, sagittal STIR, (unknown) (no (unknown) (unknown) Ordering (units (unkno wn) date) Provider: unknown) Sylvester Quigley D.O. (unknown) (no (unknown) (unknown) PROCEDURE: MR (units ( unknown) date) CERVICAL SPINE WO unknown) CON (unknown) (no (unknown) (unknown) Paraspinous Soft (units (unknown) date) Tissues: No unknown) paravertebral masses. Prevertebral soft tissues (unknown) (no (unknown) (unknown) Patient: (units (unkno wn) date) Adore Munoz unknown) MR#: [id number] (unknown) (no (unknown) (unknown) Procedure: MR (units ( unknown) date) cervical spine wo unknown) con (unknown) (no (unknown) (unknown) Signed (units (unkno wn) date) unknown) (unknown) (no (unknown) (unknown) Spinal Cord: (units (u nknown) date) Visualized spinal unknown) cord has normal size and signal. No cerebellar (unknown) (no (unknown) (unknown) TECHNIQUE: (units (unk nown) date) unknown) (unknown) (no (unknown) (unknown) are normal (units (unk nown) date) unknown) (unknown) (no (unknown) (unknown) cervical (units (unkno wn) date) lordosis unknown) (unknown) (no (unknown) (unknown) cervical spine. (units (unknown) date) unknown) (unknown) (no (unknown) (unknown) foraminal (units (unkn own) date) oblique unknown) (unknown) (no (unknown) (unknown) foraminal (units (unkn own) date) unknown) (unknown) (no (unknown) (unknown) herniation. (units (un known) date) unknown) (unknown) (no (unknown) (unknown) in thickness. (units ( unknown) date) unknown) (unknown) (no (unknown) (unknown) normal (units (unkno wn) date) unknown) (unknown) (no (unknown) (unknown) results in (units (unk nown) date) moderate left unknown) foraminal stenosis. (unknown) (no (unknown) (unknown) sagittal T2 fast (units (unknown) date) spin echo, and unknown) axial gradient echo or T2 fast spin echo through (unknown) (no (unknown) (unknown) stenosis. Right (units (unknown) date) foramina is unknown) widely patent. Mild central stenosis (unknown) (no (unknown) (unknown) the (units (unkno wn) date) unknown) (unknown) (no (unknown) (unknown) tonsillar (units (unkn own) date) unknown) (unknown) (no (unknown) (unknown) ventral surface (units (unknown) date) of the cord. unknown) Facet hypertrophy results in moderate left Result panel 3 (unknown) (no (unknown) (unknown) (no value) (units (unk nown) date) unknown) (unknown) (no (unknown) (unknown) #10 tabs (units (unkno wn) date) unknown) (unknown) (no (unknown) (unknown) 1 per month. (units (u nknown) date) unknown) (unknown) (no (unknown) (unknown) 1 tab PO DAILY (units (unknown) date) unknown) (unknown) (no (unknown) (unknown) 10 mg PO DAILY (units (unknown) date) unknown) (unknown) (no (unknown) (unknown) 12 point review (units (unknown) date) of systems is unknown) negative except for those stated above (unknown) (no (unknown) (unknown) 120 mg PO DAILY (units (unknown) date) Qty: 90 1RF unknown) (unknown) (no (unknown) (unknown) 240 mg SUBCUT (units ( unknown) date) ONCE Qty: 1 12RF unknown) (unknown) (no (unknown) (unknown) 25 mg PO DAILY (units (unknown) date) unknown) (unknown) (no (unknown) (unknown) 3 tabs/day (24hr) (units (unknown) date) PO unknown) (unknown) (no (unknown) (unknown) [id number] (units (unkno wn) date) unknown) (unknown) (no (unknown) (unknown) 40 mg PO DAILY (units (unknown) date) unknown) (unknown) (no (unknown) (unknown) 42-year-old (units (un known) date) female former unknown) smoker with history of diabetes and chronic migraines (unknown) (no (unknown) (unknown) 5 mg PO ONCE (units (u nknown) date) unknown) (unknown) (no (unknown) (unknown) 750 mg PO DAILY (units (unknown) date) unknown) (unknown) (no (unknown) (unknown) Age/Sex: 42 / F (units (unknown) date) unknown) (unknown) (no (unknown) (unknown) Allergies (units (unkn own) date) unknown) (unknown) (no (unknown) (unknown) Allergy/AdvReac (units (unknown) date) Type Severity unknown) Reaction Status Date / Time (unknown) (no (unknown) (unknown) BACK: Nontender (units (unknown) date) without deformity unknown) or crepitance. No flank tenderness. (unknown) (no (unknown) (unknown) CARDIOVASCULAR: (units (unknown) date) Denies chest pain, unknown) palpitations, orthopnea, edema, (unknown) (no (unknown) (unknown) CARDIOVASCULAR: (units (unknown) date) Regular rate and unknown) rhythm without murmurs, gallops, or rubs. (unknown) (no (unknown) (unknown) CC: 42-year-old (units (unknown) date) female with unknown) muscular neck pain (unknown) (no (unknown) (unknown) Chief complaint: (units (unknown) date) Back Pain/Injury unknown) (unknown) (no (unknown) (unknown) Complicating (units (u nknown) date) co-morbidities: unknown) Hypertension, migraines, chronic neck pain (unknown) (no (unknown) (unknown) Consultations: (units (unknown) date) unknown) (unknown) (no (unknown) (unknown) : 1980 (units (unknown) date) Acct:[id number] unknown) (unknown) (no (unknown) (unknown) Data collected (units (unknown) date) from: Patient unknown) (unknown) (no (unknown) (unknown) Date of Service: (units (unknown) date) 01/03/23 unknown) (unknown) (no (unknown) (unknown) Departure (units (unkn own) date) unknown) (unknown) (no (unknown) (unknown) Diabetes mellitus (units (unknown) date) unknown) (unknown) (no (unknown) (unknown) Differential (units (u nknown) date) considered, but unknown) not limited to: Muscle spasm, radicular symptoms (unknown) (no (unknown) (unknown) Discharge Plan (units (unknown) date) unknown) (unknown) (no (unknown) (unknown) Discussion: (units (un known) date) unknown) (unknown) (no (unknown) (unknown) Disposition: see (units (unknown) date) below, along with unknown) detailed discharge instructions that have (unknown) (no (unknown) (unknown) Dose Instruction: (units (unknown) date) unknown) (unknown) (no (unknown) (unknown) ENT: Nose without (units (unknown) date) bleeding, purulent unknown) drainage. Throat without erythema, (unknown) (no (unknown) (unknown) ER Physician: (units ( unknown) date) Sylvester Quigley D.O. unknown) (unknown) (no (unknown) (unknown) EXTREMITIES: No (units (unknown) date) edema or joint unknown) tenderness. (unknown) (no (unknown) (unknown) EYES: Pupils (units (u nknown) date) equal round and unknown) reactive. Extraocular motions intact. No scleral (unknown) (no (unknown) (unknown) Emergency Report (units (unknown) date) unknown) (unknown) (no (unknown) (unknown) Emgality Syringe (units (unknown) date) 120 mg/mL syringe unknown) (unknown) (no (unknown) (unknown) Exam Narrative: (units (unknown) date) unknown) (unknown) (no (unknown) (unknown) Exam documented (units (unknown) date) above, pertinent unknown) findings include: No midline bony tenderness, (unknown) (no (unknown) (unknown) Exam (units (unkno wn) date) unknown) (unknown) (no (unknown) (unknown) Family History (units (unknown) date) (Reviewed 01/03/23 unknown) @ 09:38 by Sylvester Quigley DO) (unknown) (no (unknown) (unknown) Father (units (unkno wn) date) Developmental unknown) delay (unknown) (no (unknown) (unknown) GASTROINTESTINAL: (units (unknown) date) Abdomen soft, unknown) non-tender, nondistended. (unknown) (no (unknown) (unknown) GASTROINTESTINAL: (units (unknown) date) Denies nausea, unknown) vomiting, abdominal pain, diarrhea, (unknown) (no (unknown) (unknown) GENERAL: Denies (units (unknown) date) chills, fatigue, unknown) malaise, fever, sweats. (unknown) (no (unknown) (unknown) GENERAL: [42] (units ( unknown) date) year old patient unknown) appears stated age. Well-developed patient, (unknown) (no (unknown) (unknown) : Denies (units (unk nown) date) dysuria, unknown) frequency, incontinence, hematuria, urinary retention. (unknown) (no (unknown) (unknown) General (units (unkno wn) date) unknown) (unknown) (no (unknown) (unknown) HEAD: Atraumatic. (units (unknown) date) Normocephalic. unknown) (unknown) (no (unknown) (unknown) HEENT: Denies (units ( unknown) date) sinus pain, ear unknown) pain, sore throat, difficulty swallowing, (unknown) (no (unknown) (unknown) HPI - General (units ( unknown) date) Adult unknown) (unknown) (no (unknown) (unknown) HPI narrative: (units (unknown) date) unknown) (unknown) (no (unknown) (unknown) History of (units (unk nown) date) unknown) (unknown) (no (unknown) (unknown) History of (units (unk nown) date) Present Illness unknown) (unknown) (no (unknown) (unknown) History of (units (unk nown) date) cholecystectomy unknown) (unknown) (no (unknown) (unknown) History of (units (unk nown) date) hysterectomy unknown) (unknown) (no (unknown) (unknown) History of (units (unk nown) date) lithotripsy unknown) (unknown) (no (unknown) (unknown) Home Medications (units (unknown) date) unknown) (unknown) (no (unknown) (unknown) Imaging studies (units (unknown) date) independently unknown) reviewed: (unknown) (no (unknown) (unknown) Formerly [facility] (units (unknown) date) [address] unknown) [place] [address] (unknown) (no (unknown) (unknown) MDM Narrative (units ( unknown) date) unknown) (unknown) (no (unknown) (unknown) MIPS Elements: (units (unknown) date) unknown) (unknown) (no (unknown) (unknown) MUSCULOSKELETAL: (units (unknown) date) See HPI unknown) (unknown) (no (unknown) (unknown) Medical Decision (units (unknown) date) Making unknown) (unknown) (no (unknown) (unknown) Medical decision (units (unknown) date) making narrative: unknown) (unknown) (no (unknown) (unknown) Medical records (units (unknown) date) reviewed: Prior unknown) notes reviewed in our EMR (unknown) (no (unknown) (unknown) Medication (units (unk nown) date) Instructions unknown) Recorded Confirmed (unknown) (no (unknown) (unknown) Medication (units (unk nown) date) Instructions unknown) Recorded (unknown) (no (unknown) (unknown) Mental disability (units (unknown) date) unknown) (unknown) (no (unknown) (unknown) Migraines (units (unkn own) date) unknown) (unknown) (no (unknown) (unknown) Miscellaneous,Doc (units (unknown) date) MD irena unknown) [Non-Staff] (unknown) (no (unknown) (unknown) Mother (units (unkno wn) date) Hypertension unknown) (unknown) (no (unknown) (unknown) NECK: Trachea (units ( unknown) date) midline. No unknown) midline bony tenderness, step-offs or crepitance, no (unknown) (no (unknown) (unknown) NEURO: AOx3. (units (u nknown) date) unknown) (unknown) (no (unknown) (unknown) NEUROLOGIC: See (units (unknown) date) HPI unknown) (unknown) (no (unknown) (unknown) Narrative (units (unkn own) date) unknown) (unknown) (no (unknown) (unknown) Narrative: (units (unk nown) date) unknown) (unknown) (no (unknown) (unknown) Negative Kernig's (units (unknown) date) sign. A+O x3. unknown) (unknown) (no (unknown) (unknown) No Action (units (unkn own) date) unknown) (unknown) (no (unknown) (unknown) No Known Drug (units ( unknown) date) Allergies Allergy unknown) Verified 01/03/23 09:35 (unknown) (no (unknown) (unknown) PSYCHIATRIC: No (units (unknown) date) concerning unknown) psychosocial issues. (unknown) (no (unknown) (unknown) Patient History (units (unknown) date) unknown) (unknown) (no (unknown) (unknown) Patient: (units (unkno wn) date) Adore Munoz unknown) MR#: [id number] (unknown) (no (unknown) (unknown) Prescriptions: (units (unknown) date) unknown) (unknown) (no (unknown) (unknown) Previous Rx's (units ( unknown) date) unknown) (unknown) (no (unknown) (unknown) RESPIRATORY: Clear (units (unknown) date) to auscultation. unknown) Breath sounds equal bilaterally. No wheezes, (unknown) (no (unknown) (unknown) RESPIRATORY: (units (u nknown) date) Denies dyspnea, unknown) cough, wheezing, hemoptysis, sputum. (unknown) (no (unknown) (unknown) Re-evaluations: (units (unknown) date) unknown) (unknown) (no (unknown) (unknown) Referrals: (units (unk nown) date) unknown) (unknown) (no (unknown) (unknown) Related Data (units (u nknown) date) unknown) (unknown) (no (unknown) (unknown) Respiratory (units (un known) date) disease unknown) (unknown) (no (unknown) (unknown) Review of Systems (units (unknown) date) unknown) (unknown) (no (unknown) (unknown) Rx Instructions: (units (unknown) date) unknown) (unknown) (no (unknown) (unknown) SKIN: Denies (units (u nknown) date) rash, skin unknown) lesions, or other (unknown) (no (unknown) (unknown) SKIN: No rash or (units (unknown) date) erythema of unknown) visible areas (unknown) (no (unknown) (unknown) Scores Used: (units (u nknown) date) unknown) (unknown) (no (unknown) (unknown) See Rx (units (unkno wn) date) Instructions PO unknown) .COMPLEX Qty: 10 2RF (unknown) (no (unknown) (unknown) Signed By: (units (unk nown) date) unknown) (unknown) (no (unknown) (unknown) Smoking Status: (units (unknown) date) Former smoker unknown) (unknown) (no (unknown) (unknown) Social History (units (unknown) date) (Reviewed 01/03/23 unknown) @ 09:38 by Sylvester Quigley DO) (unknown) (no (unknown) (unknown) Stated complaint: (units (unknown) date) stiff neck and unknown) shoulders (unknown) (no (unknown) (unknown) Surgical History (units (unknown) date) (Reviewed 01/03/23 unknown) @ 09:38 by Sylvester Quigley DO) (unknown) (no (unknown) (unknown) Time Seen by (units (u nknown) date) Provider: 01/03/23 unknown) 09:18 (unknown) (no (unknown) (unknown) Treatments: (units (un known) date) unknown) (unknown) (no (unknown) (unknown) additional (units (unk nown) date) outpatient follow unknown) up (unknown) (no (unknown) (unknown) alcohol intake: (units (unknown) date) current unknown) (unknown) (no (unknown) (unknown) as a single dose; (units (unknown) date) administer as two unknown) 120 mg injections at separate sites. then (unknown) (no (unknown) (unknown) been having this (units (unknown) date) trouble for quite unknown) some time and has been taking (unknown) (no (unknown) (unknown) been reviewed (units ( unknown) date) with patient as unknown) well as indications for ED re-evaluation and (unknown) (no (unknown) (unknown) blurred vision or (units (unknown) date) trouble with unknown) speech. She states that she does occasionally (unknown) (no (unknown) (unknown) breath. She (units (un known) date) denies any sore unknown) throat or difficulty swallowing. (unknown) (no (unknown) (unknown) change in (units (unkn own) date) symptoms with unknown) axial load. No measurable upper extremity numbness, (unknown) (no (unknown) (unknown) constipation, (units ( unknown) date) melena. unknown) (unknown) (no (unknown) (unknown) crepitance, no (units (unknown) date) change with axial unknown) load, no measurable upper extremity weakness. (unknown) (no (unknown) (unknown) currently. She (units (unknown) date) states that her unknown) pain is worse when she moves her head 1 way or (unknown) (no (unknown) (unknown) dizziness. (units (unk nown) date) unknown) (unknown) (no (unknown) (unknown) due to disc (units (un known) date) problem, much less unknown) likely meningitis versus other (unknown) (no (unknown) (unknown) galcanezumab-gnlm (units (unknown) date) 120 mg/mL 240 mg unknown) (2 mL) SUBCUT ONCE #1 mL 06/28/19 (unknown) (no (unknown) (unknown) get numbness and (units (unknown) date) tingling in her unknown) left hand and feels like it is heavy, not (unknown) (no (unknown) (unknown) hydroxyzine HCl (units (unknown) date) 25 mg tablet 25 mg unknown) PO DAILY 05/09/19 05/09/19 (unknown) (no (unknown) (unknown) hydroxyzine HCl (units (unknown) date) 25 mg tablet unknown) (unknown) (no (unknown) (unknown) icterus. No (units (un known) date) injection or unknown) drainage. (unknown) (no (unknown) (unknown) marital status: (units (unknown) date) unknown) (unknown) (no (unknown) (unknown) metformin 1,000 (units (unknown) date) mg tablet 750 mg unknown) PO DAILY 05/09/19 05/09/19 (unknown) (no (unknown) (unknown) metformin 1,000 (units (unknown) date) mg tablet unknown) (unknown) (no (unknown) (unknown) mg-hydrochlorothi (units (unknown) date) azide 25 mg unknown) (unknown) (no (unknown) (unknown) no fever or (units (un known) date) chills and takes unknown) no blood thinners. She denies any headaches, (unknown) (no (unknown) (unknown) [id number] (units (unknown) date) Tylenol, unknown) anti-inflammatorie s and a prescription of tizanidine (unknown) (no (unknown) (unknown) palpation or (units (u nknown) date) attempts at active unknown) range of motion (unknown) (no (unknown) (unknown) paroxetine HCl 10 (units (unknown) date) mg tablet 10 mg PO unknown) DAILY 05/09/19 05/09/19 (unknown) (no (unknown) (unknown) paroxetine HCl 10 (units (unknown) date) mg tablet unknown) (unknown) (no (unknown) (unknown) paroxetine HCl 40 (units (unknown) date) mg tablet 40 mg PO unknown) DAILY 05/09/19 05/09/19 (unknown) (no (unknown) (unknown) paroxetine HCl 40 (units (unknown) date) mg tablet unknown) (unknown) (no (unknown) (unknown) presents with a (units (unknown) date) chief complaint of unknown) stiff neck and shoulders. She states she is (unknown) (no (unknown) (unknown) rales, or (units (unkn own) date) rhonchi. unknown) (unknown) (no (unknown) (unknown) release (units (unkno wn) date) unknown) (unknown) (no (unknown) (unknown) replaces micardis (units (unknown) date) unknown) (unknown) (no (unknown) (unknown) rizatriptan 10 mg (units (unknown) date) tablet (Maxalt) unknown) See Rx Instructions PO .COMPLEX 06/14/19 (unknown) (no (unknown) (unknown) rizatriptan 5 mg (units (unknown) date) tablet 5 mg PO unknown) ONCE 05/09/19 05/09/19 (unknown) (no (unknown) (unknown) rizatriptan 5 mg (units (unknown) date) tablet unknown) (unknown) (no (unknown) (unknown) rizatriptan (units (un known) date) [Maxalt] 10 mg unknown) tablet (unknown) (no (unknown) (unknown) subcutaneous (units (u nknown) date) syringe (Emgality) unknown) (unknown) (no (unknown) (unknown) tablet (Micardis (units (unknown) date) HCT) unknown) (unknown) (no (unknown) (unknown) take 1 tab at (units ( unknown) date) onset of headache; unknown) if no relief may repeat 1 tab in 2hr; max = (unknown) (no (unknown) (unknown) tearful, (units (unkno wn) date) obviously unknown) uncomfortable (unknown) (no (unknown) (unknown) telmisartan 80 1 (units (unknown) date) tab PO DAILY unknown) 05/09/19 05/09/19 (unknown) (no (unknown) (unknown) telmisartan-hydro (units (unknown) date) chlorothiazid unknown) [Micardis HCT] 80-25 mg tablet (unknown) (no (unknown) (unknown) the other. She (units (unknown) date) denies any midline unknown) pain. She has no chest pain or shortness of (unknown) (no (unknown) (unknown) tingling or (units (un known) date) weakness. She does unknown) have pain in the paraspinal musculature with (unknown) (no (unknown) (unknown) tonsillar (units (unkn own) date) hypertrophy or unknown) exudate. Airway patent. (unknown) (no (unknown) (unknown) verapamil 120 mg (units (unknown) date) tablet extended unknown) release (unknown) (no (unknown) (unknown) verapamil 120 mg (units (unknown) date) tablet,extended unknown) 120 mg PO DAILY #90 tabs 11/18/19 (unknown) (no (unknown) (unknown) which does not (units (unknown) date) seem to be unknown) helping. She denies any trauma or injury. She is had Result panel 4 (unknown) (no (unknown) (unknown) (no value) (units (unk nown) date) unknown) (unknown) (no (unknown) (unknown) #10 tabs (units (unkno wn) date) unknown) (unknown) (no (unknown) (unknown) 1 per month. (units (u nknown) date) unknown) (unknown) (no (unknown) (unknown) 1 tab PO DAILY (units (unknown) date) unknown) (unknown) (no (unknown) (unknown) 10 mg PO DAILY (units (unknown) date) unknown) (unknown) (no (unknown) (unknown) 12 point review (units (unknown) date) of systems is unknown) negative except for those stated above (unknown) (no (unknown) (unknown) 120 mg PO DAILY (units (unknown) date) Qty: 90 1RF unknown) (unknown) (no (unknown) (unknown) 240 mg SUBCUT (units ( unknown) date) ONCE Qty: 1 12RF unknown) (unknown) (no (unknown) (unknown) 25 mg PO DAILY (units (unknown) date) unknown) (unknown) (no (unknown) (unknown) 3 tabs/day (24hr) (units (unknown) date) PO unknown) (unknown) (no (unknown) (unknown) [id number] (units (unkno wn) date) unknown) (unknown) (no (unknown) (unknown) 40 mg PO DAILY (units (unknown) date) unknown) (unknown) (no (unknown) (unknown) 42-year-old (units (un known) date) female former unknown) smoker with history of diabetes and chronic migraines (unknown) (no (unknown) (unknown) 5 mg PO ONCE (units (u nknown) date) unknown) (unknown) (no (unknown) (unknown) 750 mg PO DAILY (units (unknown) date) unknown) (unknown) (no (unknown) (unknown) Age/Sex: 42 / F (units (unknown) date) unknown) (unknown) (no (unknown) (unknown) Allergies (units (unkn own) date) unknown) (unknown) (no (unknown) (unknown) Allergy/AdvReac (units (unknown) date) Type Severity unknown) Reaction Status Date / Time (unknown) (no (unknown) (unknown) BACK: Nontender (units (unknown) date) without deformity unknown) or crepitance. No flank tenderness. (unknown) (no (unknown) (unknown) CARDIOVASCULAR: (units (unknown) date) Denies chest pain, unknown) palpitations, orthopnea, edema, (unknown) (no (unknown) (unknown) CARDIOVASCULAR: (units (unknown) date) Regular rate and unknown) rhythm without murmurs, gallops, or rubs. (unknown) (no (unknown) (unknown) CC: 42-year-old (units (unknown) date) female with unknown) muscular neck pain (unknown) (no (unknown) (unknown) Chief complaint: (units (unknown) date) Back Pain/Injury unknown) (unknown) (no (unknown) (unknown) Complicating (units (u nknown) date) co-morbidities: unknown) Hypertension, migraines, chronic neck pain (unknown) (no (unknown) (unknown) Consultations: (units (unknown) date) unknown) (unknown) (no (unknown) (unknown) : 1980 (units (unknown) date) Acct:[id number] unknown) (unknown) (no (unknown) (unknown) Data collected (units (unknown) date) from: Patient unknown) (unknown) (no (unknown) (unknown) Date of Service: (units (unknown) date) 01/03/23 unknown) (unknown) (no (unknown) (unknown) Departure (units (unkn own) date) unknown) (unknown) (no (unknown) (unknown) Diabetes mellitus (units (unknown) date) unknown) (unknown) (no (unknown) (unknown) Differential (units (u nknown) date) considered, but unknown) not limited to: Muscle spasm, radicular symptoms (unknown) (no (unknown) (unknown) Discharge Plan (units (unknown) date) unknown) (unknown) (no (unknown) (unknown) Discussion: (units (un known) date) unknown) (unknown) (no (unknown) (unknown) Disposition: see (units (unknown) date) below, along with unknown) detailed discharge instructions that have (unknown) (no (unknown) (unknown) Dose Instruction: (units (unknown) date) unknown) (unknown) (no (unknown) (unknown) ENT: Nose without (units (unknown) date) bleeding, purulent unknown) drainage. Throat without erythema, (unknown) (no (unknown) (unknown) ER Physician: (units ( unknown) date) Sylvester Quigley D.O. unknown) (unknown) (no (unknown) (unknown) EXTREMITIES: No (units (unknown) date) edema or joint unknown) tenderness. (unknown) (no (unknown) (unknown) EYES: Pupils (units (u nknown) date) equal round and unknown) reactive. Extraocular motions intact. No scleral (unknown) (no (unknown) (unknown) Emergency Report (units (unknown) date) unknown) (unknown) (no (unknown) (unknown) Emgality Syringe (units (unknown) date) 120 mg/mL syringe unknown) (unknown) (no (unknown) (unknown) Exam Narrative: (units (unknown) date) unknown) (unknown) (no (unknown) (unknown) Exam documented (units (unknown) date) above, pertinent unknown) findings include: No midline bony tenderness, (unknown) (no (unknown) (unknown) Exam (units (unkno wn) date) unknown) (unknown) (no (unknown) (unknown) Family History (units (unknown) date) (Reviewed 01/03/23 unknown) @ 09:38 by Sylvester Quigley DO) (unknown) (no (unknown) (unknown) Father (units (unkno wn) date) Developmental unknown) delay (unknown) (no (unknown) (unknown) GASTROINTESTINAL: (units (unknown) date) Abdomen soft, unknown) non-tender, nondistended. (unknown) (no (unknown) (unknown) GASTROINTESTINAL: (units (unknown) date) Denies nausea, unknown) vomiting, abdominal pain, diarrhea, (unknown) (no (unknown) (unknown) GENERAL: Denies (units (unknown) date) chills, fatigue, unknown) malaise, fever, sweats. (unknown) (no (unknown) (unknown) GENERAL: [42] (units ( unknown) date) year old patient unknown) appears stated age. Well-developed patient, (unknown) (no (unknown) (unknown) : Denies (units (unk nown) date) dysuria, unknown) frequency, incontinence, hematuria, urinary retention. (unknown) (no (unknown) (unknown) General (units (unkno wn) date) unknown) (unknown) (no (unknown) (unknown) HEAD: Atraumatic. (units (unknown) date) Normocephalic. unknown) (unknown) (no (unknown) (unknown) HEENT: Denies (units ( unknown) date) sinus pain, ear unknown) pain, sore throat, difficulty swallowing, (unknown) (no (unknown) (unknown) HPI - General (units ( unknown) date) Adult unknown) (unknown) (no (unknown) (unknown) HPI narrative: (units (unknown) date) unknown) (unknown) (no (unknown) (unknown) History of (units (unk nown) date) unknown) (unknown) (no (unknown) (unknown) History of (units (unk nown) date) Present Illness unknown) (unknown) (no (unknown) (unknown) History of (units (unk nown) date) cholecystectomy unknown) (unknown) (no (unknown) (unknown) History of (units (unk nown) date) hysterectomy unknown) (unknown) (no (unknown) (unknown) History of (units (unk nown) date) lithotripsy unknown) (unknown) (no (unknown) (unknown) Home Medications (units (unknown) date) unknown) (unknown) (no (unknown) (unknown) Imaging studies (units (unknown) date) independently unknown) reviewed: (unknown) (no (unknown) (unknown) [facility] (units (unknown) date) [address] unknown) [place] [address] (unknown) (no (unknown) (unknown) MDM Narrative (units ( unknown) date) unknown) (unknown) (no (unknown) (unknown) MIPS Elements: (units (unknown) date) unknown) (unknown) (no (unknown) (unknown) MUSCULOSKELETAL: (units (unknown) date) See HPI unknown) (unknown) (no (unknown) (unknown) Medical Decision (units (unknown) date) Making unknown) (unknown) (no (unknown) (unknown) Medical decision (units (unknown) date) making narrative: unknown) (unknown) (no (unknown) (unknown) Medical records (units (unknown) date) reviewed: Prior unknown) notes reviewed in our EMR (unknown) (no (unknown) (unknown) Medication (units (unk nown) date) Instructions unknown) Recorded Confirmed (unknown) (no (unknown) (unknown) Medication (units (unk nown) date) Instructions unknown) Recorded (unknown) (no (unknown) (unknown) Mental disability (units (unknown) date) unknown) (unknown) (no (unknown) (unknown) Migraines (units (unkn own) date) unknown) (unknown) (no (unknown) (unknown) Miscellaneous,Doc (units (unknown) date) MD irena unknown) [Non-Staff] (unknown) (no (unknown) (unknown) Mother (units (unkno wn) date) Hypertension unknown) (unknown) (no (unknown) (unknown) NECK: Trachea (units ( unknown) date) midline. No unknown) midline bony tenderness, step-offs or crepitance, no (unknown) (no (unknown) (unknown) NEURO: AOx3. (units (u nknown) date) unknown) (unknown) (no (unknown) (unknown) NEUROLOGIC: See (units (unknown) date) HPI unknown) (unknown) (no (unknown) (unknown) Narrative (units (unkn own) date) unknown) (unknown) (no (unknown) (unknown) Narrative: (units (unk nown) date) unknown) (unknown) (no (unknown) (unknown) Negative Kernig's (units (unknown) date) sign. A+O x3. unknown) (unknown) (no (unknown) (unknown) No Action (units (unkn own) date) unknown) (unknown) (no (unknown) (unknown) No Known Drug (units ( unknown) date) Allergies Allergy unknown) Verified 01/03/23 09:35 (unknown) (no (unknown) (unknown) PSYCHIATRIC: No (units (unknown) date) concerning unknown) psychosocial issues. (unknown) (no (unknown) (unknown) Patient History (units (unknown) date) unknown) (unknown) (no (unknown) (unknown) Patient: (units (unkno wn) date) Adore Munoz unknown) MR#: [id number] (unknown) (no (unknown) (unknown) Prescriptions: (units (unknown) date) unknown) (unknown) (no (unknown) (unknown) Previous Rx's (units ( unknown) date) unknown) (unknown) (no (unknown) (unknown) RESPIRATORY: Clear (units (unknown) date) to auscultation. unknown) Breath sounds equal bilaterally. No wheezes, (unknown) (no (unknown) (unknown) RESPIRATORY: (units (u nknown) date) Denies dyspnea, unknown) cough, wheezing, hemoptysis, sputum. (unknown) (no (unknown) (unknown) Re-evaluations: (units (unknown) date) unknown) (unknown) (no (unknown) (unknown) Referrals: (units (unk nown) date) unknown) (unknown) (no (unknown) (unknown) Related Data (units (u nknown) date) unknown) (unknown) (no (unknown) (unknown) Respiratory (units (un known) date) disease unknown) (unknown) (no (unknown) (unknown) Review of Systems (units (unknown) date) unknown) (unknown) (no (unknown) (unknown) Rx Instructions: (units (unknown) date) unknown) (unknown) (no (unknown) (unknown) SKIN: Denies (units (u nknown) date) rash, skin unknown) lesions, or other (unknown) (no (unknown) (unknown) SKIN: No rash or (units (unknown) date) erythema of unknown) visible areas (unknown) (no (unknown) (unknown) Scores Used: (units (u nknown) date) unknown) (unknown) (no (unknown) (unknown) See Rx (units (unkno wn) date) Instructions PO unknown) .COMPLEX Qty: 10 2RF (unknown) (no (unknown) (unknown) Signed By: (units (unk nown) date) unknown) (unknown) (no (unknown) (unknown) Smoking Status: (units (unknown) date) Former smoker unknown) (unknown) (no (unknown) (unknown) Social History (units (unknown) date) (Reviewed 01/03/23 unknown) @ 09:38 by Sylvester Quigley DO) (unknown) (no (unknown) (unknown) Stated complaint: (units (unknown) date) stiff neck and unknown) shoulders (unknown) (no (unknown) (unknown) Surgical History (units (unknown) date) (Reviewed 01/03/23 unknown) @ 09:38 by Sylvester Quigley DO) (unknown) (no (unknown) (unknown) Time Seen by (units (u nknown) date) Provider: 01/03/23 unknown) 09:18 (unknown) (no (unknown) (unknown) Treatments: (units (un known) date) unknown) (unknown) (no (unknown) (unknown) additional (units (unk nown) date) outpatient follow unknown) up (unknown) (no (unknown) (unknown) alcohol intake: (units (unknown) date) current unknown) (unknown) (no (unknown) (unknown) as a single dose; (units (unknown) date) administer as two unknown) 120 mg injections at separate sites. then (unknown) (no (unknown) (unknown) been having this (units (unknown) date) trouble for quite unknown) some time and has been taking (unknown) (no (unknown) (unknown) been reviewed (units ( unknown) date) with patient as unknown) well as indications for ED re-evaluation and (unknown) (no (unknown) (unknown) blurred vision or (units (unknown) date) trouble with unknown) speech. She states that she does occasionally (unknown) (no (unknown) (unknown) breath. She (units (un known) date) denies any sore unknown) throat or difficulty swallowing. (unknown) (no (unknown) (unknown) change in (units (unkn own) date) symptoms with unknown) axial load. No measurable upper extremity numbness, (unknown) (no (unknown) (unknown) constipation, (units ( unknown) date) melena. unknown) (unknown) (no (unknown) (unknown) crepitance, no (units (unknown) date) change with axial unknown) load, no measurable upper extremity weakness. (unknown) (no (unknown) (unknown) currently. She (units (unknown) date) states that her unknown) pain is worse when she moves her head 1 way or (unknown) (no (unknown) (unknown) dizziness. (units (unk nown) date) unknown) (unknown) (no (unknown) (unknown) due to disc (units (un known) date) problem, much less unknown) likely meningitis versus other (unknown) (no (unknown) (unknown) galcanezumab-gnlm (units (unknown) date) 120 mg/mL 240 mg unknown) (2 mL) SUBCUT ONCE #1 mL 06/28/19 (unknown) (no (unknown) (unknown) get numbness and (units (unknown) date) tingling in her unknown) left hand and feels like it is heavy, not (unknown) (no (unknown) (unknown) hydroxyzine HCl (units (unknown) date) 25 mg tablet 25 mg unknown) PO DAILY 05/09/19 05/09/19 (unknown) (no (unknown) (unknown) hydroxyzine HCl (units (unknown) date) 25 mg tablet unknown) (unknown) (no (unknown) (unknown) icterus. No (units (un known) date) injection or unknown) drainage. (unknown) (no (unknown) (unknown) marital status: (units (unknown) date) unknown) (unknown) (no (unknown) (unknown) metformin 1,000 (units (unknown) date) mg tablet 750 mg unknown) PO DAILY 05/09/19 05/09/19 (unknown) (no (unknown) (unknown) metformin 1,000 (units (unknown) date) mg tablet unknown) (unknown) (no (unknown) (unknown) mg-hydrochlorothi (units (unknown) date) azide 25 mg unknown) (unknown) (no (unknown) (unknown) no fever or (units (un known) date) chills and takes unknown) no blood thinners. She denies any headaches, (unknown) (no (unknown) (unknown) [id number] (units (unknown) date) Tylenol, unknown) anti-inflammatorie s and a prescription of tizanidine (unknown) (no (unknown) (unknown) palpation or (units (u nknown) date) attempts at active unknown) range of motion (unknown) (no (unknown) (unknown) paroxetine HCl 10 (units (unknown) date) mg tablet 10 mg PO unknown) DAILY 05/09/19 05/09/19 (unknown) (no (unknown) (unknown) paroxetine HCl 10 (units (unknown) date) mg tablet unknown) (unknown) (no (unknown) (unknown) paroxetine HCl 40 (units (unknown) date) mg tablet 40 mg PO unknown) DAILY 05/09/19 05/09/19 (unknown) (no (unknown) (unknown) paroxetine HCl 40 (units (unknown) date) mg tablet unknown) (unknown) (no (unknown) (unknown) presents with a (units (unknown) date) chief complaint of unknown) stiff neck and shoulders. She states she is (unknown) (no (unknown) (unknown) rales, or (units (unkn own) date) rhonchi. unknown) (unknown) (no (unknown) (unknown) release (units (unkno wn) date) unknown) (unknown) (no (unknown) (unknown) replaces micardis (units (unknown) date) unknown) (unknown) (no (unknown) (unknown) rizatriptan 10 mg (units (unknown) date) tablet (Maxalt) unknown) See Rx Instructions PO .COMPLEX 06/14/19 (unknown) (no (unknown) (unknown) rizatriptan 5 mg (units (unknown) date) tablet 5 mg PO unknown) ONCE 05/09/19 05/09/19 (unknown) (no (unknown) (unknown) rizatriptan 5 mg (units (unknown) date) tablet unknown) (unknown) (no (unknown) (unknown) rizatriptan (units (un known) date) [Maxalt] 10 mg unknown) tablet (unknown) (no (unknown) (unknown) subcutaneous (units (u nknown) date) syringe (Emgality) unknown) (unknown) (no (unknown) (unknown) tablet (Micardis (units (unknown) date) HCT) unknown) (unknown) (no (unknown) (unknown) take 1 tab at (units ( unknown) date) onset of headache; unknown) if no relief may repeat 1 tab in 2hr; max = (unknown) (no (unknown) (unknown) tearful, (units (unkno wn) date) obviously unknown) uncomfortable (unknown) (no (unknown) (unknown) telmisartan 80 1 (units (unknown) date) tab PO DAILY unknown) 05/09/19 05/09/19 (unknown) (no (unknown) (unknown) telmisartan-hydro (units (unknown) date) chlorothiazid unknown) [Micardis HCT] 80-25 mg tablet (unknown) (no (unknown) (unknown) the other. She (units (unknown) date) denies any midline unknown) pain. She has no chest pain or shortness of (unknown) (no (unknown) (unknown) tingling or (units (un known) date) weakness. She does unknown) have pain in the paraspinal musculature with (unknown) (no (unknown) (unknown) tonsillar (units (unkn own) date) hypertrophy or unknown) exudate. Airway patent. (unknown) (no (unknown) (unknown) verapamil 120 mg (units (unknown) date) tablet extended unknown) release (unknown) (no (unknown) (unknown) verapamil 120 mg (units (unknown) date) tablet,extended unknown) 120 mg PO DAILY #90 tabs 11/18/19 (unknown) (no (unknown) (unknown) which does not (units (unknown) date) seem to be unknown) helping. She denies any trauma or injury. She is had Result panel 5 (unknown) (no (unknown) (unknown) (no value) (units (unk nown) date) unknown) (unknown) (no (unknown) (unknown) #10 tabs (units (unkno wn) date) unknown) (unknown) (no (unknown) (unknown) <Electronically (units (unknown) date) signed by Julio Varela D.O.> (unknown) (no (unknown) (unknown) <Sylvester Quigley DO (units (unknown) date) - Last Filed: unknown) 01/03/23 09:41> (unknown) (no (unknown) (unknown) <Julio Varela DO (unit s (unknown) date) - Last Filed: unknown) 01/03/23 19:39> (unknown) (no (unknown) (unknown) *If you do not have (unit s (unknown) date) a primary care unknown) provider please contact the [facility] (unknown) (no (unknown) (unknown) *Please continue to (unit s (unknown) date) take your regular unknown) medications as directed. (unknown) (no (unknown) (unknown) *Please follow (units (unknown) date) Amira at [facility] unknown) [facility], please see the contact (unknown) (no (unknown) (unknown) *Return to (units (unk nown) date) Emergency Department unknown) if you should have any new, worsening or (unknown) (no (unknown) (unknown) *What to do: (units (u nknown) date) unknown) (unknown) (no (unknown) (unknown) *You have been (units (unknown) date) diagnosed with [neck unknown) pain with C6 disc protrusion] (unknown) (no (unknown) (unknown) 01/03/23 193 (units ( unknown) date) unknown) (unknown) (no (unknown) (unknown) 01/03/23 (units (unkno wn) date) unknown) (unknown) (no (unknown) (unknown) 1 per month. (units (u nknown) date) unknown) (unknown) (no (unknown) (unknown) 1 tab PO DAILY (units (unknown) date) unknown) (unknown) (no (unknown) (unknown) 1 tab PO Q4-6H PRN (units (unknown) date) (Reason: pain) Qty: unknown) 10 0RF (unknown) (no (unknown) (unknown) 10 mg PO DAILY (units (unknown) date) unknown) (unknown) (no (unknown) (unknown) 12 point review of (units (unknown) date) systems is negative unknown) except for those stated above (unknown) (no (unknown) (unknown) 120 mg PO DAILY (units (unknown) date) Qty: 90 1RF unknown) (unknown) (no (unknown) (unknown) 12:00 01/03/23 (units (unknown) date) unknown) (unknown) (no (unknown) (unknown) 12:30 (units (unkno wn) date) unknown) (unknown) (no (unknown) (unknown) 13:00 01/03/23 (units (unknown) date) unknown) (unknown) (no (unknown) (unknown) 13:30 (units (unkno wn) date) unknown) (unknown) (no (unknown) (unknown) 14:00 01/03/23 (units (unknown) date) unknown) (unknown) (no (unknown) (unknown) 14:30 (units (unkno wn) date) unknown) (unknown) (no (unknown) (unknown) 15:27 01/03/23 (units (unknown) date) unknown) (unknown) (no (unknown) (unknown) 15:28 01/03/23 (units (unknown) date) unknown) (unknown) (no (unknown) (unknown) 15:28 (units (unkno wn) date) unknown) (unknown) (no (unknown) (unknown) 15:30 01/03/23 (units (unknown) date) unknown) (unknown) (no (unknown) (unknown) 16:00 01/03/23 (units (unknown) date) unknown) (unknown) (no (unknown) (unknown) 16:00 (units (unkno wn) date) unknown) (unknown) (no (unknown) (unknown) 16:30 01/03/23 (units (unknown) date) unknown) (unknown) (no (unknown) (unknown) 17:00 01/03/23 (units (unknown) date) unknown) (unknown) (no (unknown) (unknown) 17:00 (units (unkno wn) date) unknown) (unknown) (no (unknown) (unknown) 17:30 01/03/23 (units (unknown) date) unknown) (unknown) (no (unknown) (unknown) 18:00 01/03/23 (units (unknown) date) unknown) (unknown) (no (unknown) (unknown) 18:00 (units (unkno wn) date) unknown) (unknown) (no (unknown) (unknown) 19:25 01/03/23 (units (unknown) date) unknown) (unknown) (no (unknown) (unknown) 19:25 (units (unkno wn) date) unknown) (unknown) (no (unknown) (unknown) 240 mg SUBCUT ONCE (units (unknown) date) Qty: 1 12RF unknown) (unknown) (no (unknown) (unknown) 25 mg PO DAILY (units (unknown) date) unknown) (unknown) (no (unknown) (unknown) 3 tabs/day (24hr) (units (unknown) date) PO unknown) (unknown) (no (unknown) (unknown) 300 mg PO BEDTIME (units (unknown) date) Qty: 14 0RF unknown) (unknown) (no (unknown) (unknown) [id number] (units (unkno wn) date) unknown) (unknown) (no (unknown) (unknown) 40 mg PO DAILY (units (unknown) date) unknown) (unknown) (no (unknown) (unknown) 42-year-old female (units (unknown) date) former smoker with unknown) history of diabetes and chronic migraines (unknown) (no (unknown) (unknown) 5 mg PO ONCE (units (u nknown) date) unknown) (unknown) (no (unknown) (unknown) 750 mg PO DAILY (units (unknown) date) unknown) (unknown) (no (unknown) (unknown) Activity (units (unkno wn) date) Restrictions/Additio unknown) nal Instructions: (unknown) (no (unknown) (unknown) Additionally, you (units (unknown) date) cannot sign legal unknown) documents or perform any duties such as (unknown) (no (unknown) (unknown) Age/Sex: 42 / F (units (unknown) date) unknown) (unknown) (no (unknown) (unknown) Allergies (units (unkn own) date) unknown) (unknown) (no (unknown) (unknown) Allergy/AdvReac (units (unknown) date) Type Severity unknown) Reaction Status Date / Time (unknown) (no (unknown) (unknown) BACK: Nontender (units (unknown) date) without deformity or unknown) crepitance. No flank tenderness. (unknown) (no (unknown) (unknown) Because of the EMR (units (unknown) date) my name was assigned unknown) to this patient inadvertently. I had no (unknown) (no (unknown) (unknown) Blood Pressure (units (unknown) date) 133/69 unknown) (unknown) (no (unknown) (unknown) Blood Pressure (units (unknown) date) 135/75 unknown) (unknown) (no (unknown) (unknown) Blood Pressure (units (unknown) date) 135/76 unknown) (unknown) (no (unknown) (unknown) Blood Pressure (units (unknown) date) 136/91 H unknown) (unknown) (no (unknown) (unknown) Blood Pressure (units (unknown) date) 139/84 unknown) (unknown) (no (unknown) (unknown) Blood Pressure (units (unknown) date) 140/84 unknown) (unknown) (no (unknown) (unknown) Blood Pressure (units (unknown) date) 142/83 H unknown) (unknown) (no (unknown) (unknown) Blood Pressure (units (unknown) date) 145/80 H unknown) (unknown) (no (unknown) (unknown) Blood Pressure (units (unknown) date) 183/97 H 01/03/23 unknown) 09:28 (unknown) (no (unknown) (unknown) CARDIOVASCULAR: (units (unknown) date) Denies chest pain, unknown) palpitations, orthopnea, edema, (unknown) (no (unknown) (unknown) CARDIOVASCULAR: (units (unknown) date) Regular rate and unknown) rhythm without murmurs, gallops, or rubs. (unknown) (no (unknown) (unknown) CC: 42-year-old (units (unknown) date) female with muscular unknown) neck pain (unknown) (no (unknown) (unknown) Cervical (units (unkno wn) date) radiculopathy at C6 unknown) (unknown) (no (unknown) (unknown) Chief complaint: (units (unknown) date) Back Pain/Injury unknown) (unknown) (no (unknown) (unknown) Clinical (units (unkno wn) date) Impression: unknown) (unknown) (no (unknown) (unknown) Complicating (units (u nknown) date) co-morbidities: unknown) Hypertension, migraines, chronic neck pain (unknown) (no (unknown) (unknown) Consultations: (units (unknown) date) unknown) (unknown) (no (unknown) (unknown) Course (units (unkno wn) date) unknown) (unknown) (no (unknown) (unknown) : 1980 (units (unknown) date) Acct:[id number] unknown) (unknown) (no (unknown) (unknown) Data collected (units (unknown) date) from: Patient unknown) (unknown) (no (unknown) (unknown) Date of Service: (units (unknown) date) 01/03/23 unknown) (unknown) (no (unknown) (unknown) Departure (units (unkn own) date) unknown) (unknown) (no (unknown) (unknown) Diabetes mellitus (units (unknown) date) unknown) (unknown) (no (unknown) (unknown) Diazepam (Diazepam (units (unknown) date) 2 Mg Tablet) 2 mg PO unknown) NOW ONE (unknown) (no (unknown) (unknown) Differential (units (u nknown) date) considered, but not unknown) limited to: Muscle spasm, radicular symptoms (unknown) (no (unknown) (unknown) Discharge Plan (units (unknown) date) unknown) (unknown) (no (unknown) (unknown) Discontinued (units (u nknown) date) Medications unknown) (unknown) (no (unknown) (unknown) Discussion: (units (un known) date) unknown) (unknown) (no (unknown) (unknown) Disposition: see (units (unknown) date) below, along with unknown) detailed discharge instructions that have (unknown) (no (unknown) (unknown) Documented By: AT (units (unknown) date) unknown) (unknown) (no (unknown) (unknown) Documented By: RB (units (unknown) date) unknown) (unknown) (no (unknown) (unknown) Documented By: SB (units (unknown) date) unknown) (unknown) (no (unknown) (unknown) Dose Instruction: (units (unknown) date) unknown) (unknown) (no (unknown) (unknown) Dr varela: This (units (unknown) date) note is signed by unknown) myself for administrative purposes only. (unknown) (no (unknown) (unknown) ENT: Nose without (units (unknown) date) bleeding, purulent unknown) drainage. Throat without erythema, (unknown) (no (unknown) (unknown) ER Physician: (units ( unknown) date) Sylvester Quigley D.O. unknown) (unknown) (no (unknown) (unknown) EXTREMITIES: No (units (unknown) date) edema or joint unknown) tenderness. (unknown) (no (unknown) (unknown) EYES: Pupils equal (units (unknown) date) round and reactive. unknown) Extraocular motions intact. No scleral (unknown) (no (unknown) (unknown) Emergency Report (units (unknown) date) unknown) (unknown) (no (unknown) (unknown) Emgality Syringe (units (unknown) date) 120 mg/mL syringe unknown) (unknown) (no (unknown) (unknown) Exam Narrative: (units (unknown) date) unknown) (unknown) (no (unknown) (unknown) Exam documented (units (unknown) date) above, pertinent unknown) findings include: No midline bony tenderness, (unknown) (no (unknown) (unknown) Exam (units (unkno wn) date) unknown) (unknown) (no (unknown) (unknown) Family History (units (unknown) date) (Reviewed 01/03/23 @ unknown) 09:38 by Sylvester Quigley DO) (unknown) (no (unknown) (unknown) Father (units (unkno wn) date) Developmental delay unknown) (unknown) (no (unknown) (unknown) GASTROINTESTINAL: (units (unknown) date) Abdomen soft, unknown) non-tender, nondistended. (unknown) (no (unknown) (unknown) GASTROINTESTINAL: (units (unknown) date) Denies nausea, unknown) vomiting, abdominal pain, diarrhea, (unknown) (no (unknown) (unknown) GENERAL: Denies (units (unknown) date) chills, fatigue, unknown) malaise, fever, sweats. (unknown) (no (unknown) (unknown) GENERAL: [42] year (units (unknown) date) old patient appears unknown) stated age. Well-developed patient, (unknown) (no (unknown) (unknown) : Denies dysuria, (unit s (unknown) date) frequency, unknown) incontinence, hematuria, urinary retention. (unknown) (no (unknown) (unknown) Gabapentin (units (unk nown) date) (Gabapentin 300 Mg unknown) Capsule) 300 mg PO NOW ONE (unknown) (no (unknown) (unknown) General (units (unkno wn) date) unknown) (unknown) (no (unknown) (unknown) HEAD: Atraumatic. (units (unknown) date) Normocephalic. unknown) (unknown) (no (unknown) (unknown) HEENT: Denies sinus (unit s (unknown) date) pain, ear pain, sore unknown) throat, difficulty swallowing, (unknown) (no (unknown) (unknown) HPI - General Adult (unit s (unknown) date) unknown) (unknown) (no (unknown) (unknown) HPI narrative: (units (unknown) date) unknown) (unknown) (no (unknown) (unknown) History of (units (unk nown) date) unknown) (unknown) (no (unknown) (unknown) History of Present (units (unknown) date) Illness unknown) (unknown) (no (unknown) (unknown) History of (units (unk nown) date) cholecystectomy unknown) (unknown) (no (unknown) (unknown) History of (units (unk nown) date) hysterectomy unknown) (unknown) (no (unknown) (unknown) History of (units (unk nown) date) lithotripsy unknown) (unknown) (no (unknown) (unknown) Home Medications (units (unknown) date) unknown) (unknown) (no (unknown) (unknown) Hydrocodone (units (un known) date) Bitart/Acetaminophen unknown) (Hydrocodone/Acet 5/325 Prepack) 1 bottle MISC (unknown) (no (unknown) (unknown) Hydrocodone (units (un known) date) Bitart/Acetaminophen unknown) (Hydrocodone/Acet 5/325 Tablet) 1 tab PO NOW (unknown) (no (unknown) (unknown) Imaging studies (units (unknown) date) independently unknown) reviewed: (unknown) (no (unknown) (unknown) Initial Vital Signs (unit s (unknown) date) unknown) (unknown) (no (unknown) (unknown) Initial Vital (units ( unknown) date) Signs: unknown) (unknown) (no (unknown) (unknown) Instructions: DI (units (unknown) date) for Cervical unknown) Radiculopathy (unknown) (no (unknown) (unknown) [facility] (units (unknown) date) [address] [place] [address] unknown) [place] [address] (unknown) (no (unknown) (unknown) Ketorolac (units (unkn own) date) Tromethamine unknown) (Ketorolac 30 Mg/Ml Vial) 30 mg IM NOW ONE (unknown) (no (unknown) (unknown) Last Admin: (units (un known) date) 01/03/23 09:41 Dose: unknown) 2 mg (unknown) (no (unknown) (unknown) Last Admin: (units (un known) date) 01/03/23 09:41 Dose: unknown) 30 mg (unknown) (no (unknown) (unknown) Last Admin: (units (un known) date) 01/03/23 12:21 Dose: unknown) 1 tab (unknown) (no (unknown) (unknown) Last Admin: (units (un known) date) 01/03/23 14:13 Dose: unknown) 2 mg (unknown) (no (unknown) (unknown) Last Admin: (units (un known) date) 01/03/23 19:23 Dose: unknown) 300 mg (unknown) (no (unknown) (unknown) Last Admin: (units (un known) date) 01/03/23 19:23 Dose: unknown) 40 mg (unknown) (no (unknown) (unknown) Last Admin: (units (un known) date) 01/03/23 19:27 Dose: unknown) 1 bottle (unknown) (no (unknown) (unknown) MDM Narrative (units ( unknown) date) unknown) (unknown) (no (unknown) (unknown) MIPS Elements: (units (unknown) date) unknown) (unknown) (no (unknown) (unknown) MUSCULOSKELETAL: (units (unknown) date) See HPI unknown) (unknown) (no (unknown) (unknown) Medical Decision (units (unknown) date) Making unknown) (unknown) (no (unknown) (unknown) Medical decision (units (unknown) date) making narrative: unknown) (unknown) (no (unknown) (unknown) Medical records (units (unknown) date) reviewed: Prior unknown) notes reviewed in our EMR (unknown) (no (unknown) (unknown) Medication (units (unk nown) date) Instructions unknown) Recorded Confirmed (unknown) (no (unknown) (unknown) Medication (units (unk nown) date) Instructions unknown) Recorded (unknown) (no (unknown) (unknown) Mental disability (units (unknown) date) unknown) (unknown) (no (unknown) (unknown) Migraines (units (unkn own) date) unknown) (unknown) (no (unknown) (unknown) Miscellaneous,[place]o (unit s (unknown) date) MD blayne [Non-Staff] unknown) (unknown) (no (unknown) (unknown) Mother Hypertension (unit s (unknown) date) unknown) (unknown) (no (unknown) (unknown) NECK: Trachea (units ( unknown) date) midline. No midline unknown) bony tenderness, step-offs or crepitance, no (unknown) (no (unknown) (unknown) NEURO: AOx3. (units (u nknown) date) unknown) (unknown) (no (unknown) (unknown) NEUROLOGIC: See HPI (unit s (unknown) date) unknown) (unknown) (no (unknown) (unknown) Narrative (units (unkn own) date) unknown) (unknown) (no (unknown) (unknown) Narrative: (units (unk nown) date) unknown) (unknown) (no (unknown) (unknown) Negative Kernig's (units (unknown) date) sign. A+O x3. unknown) (unknown) (no (unknown) (unknown) New (units (unkno wn) date) unknown) (unknown) (no (unknown) (unknown) No Action (units (unkn own) date) unknown) (unknown) (no (unknown) (unknown) No Known Drug (units ( unknown) date) Allergies Allergy unknown) Verified 01/03/23 09:35 (unknown) (no (unknown) (unknown) ONE (units (unkno wn) date) unknown) (unknown) (no (unknown) (unknown) Mars Collier MD (unit s (unknown) date) [Physician] unknown) (unknown) (no (unknown) (unknown) Ordered: (units (unkno wn) date) unknown) (unknown) (no (unknown) (unknown) Orders (units (unkno wn) date) unknown) (unknown) (no (unknown) (unknown) Oxygen Delivery (units (unknown) date) Method Room Air unknown) (unknown) (no (unknown) (unknown) Oxygen Delivery (units (unknown) date) Method unknown) (unknown) (no (unknown) (unknown) PSYCHIATRIC: No (units (unknown) date) concerning unknown) psychosocial issues. (unknown) (no (unknown) (unknown) Patient (units (unkno wn) date) Disposition: Home unknown) (unknown) (no (unknown) (unknown) Patient History (units (unknown) date) unknown) (unknown) (no (unknown) (unknown) Patient: (units (unkno wn) date) AlexanderAdore MR#: unknown) [id number] (unknown) (no (unknown) (unknown) Please understand (units (unknown) date) that we cannot unknown) provide further refills of narcotics or (unknown) (no (unknown) (unknown) Prednisone (units (unk nown) date) (Prednisone 20 Mg unknown) Tablet) 40 mg PO NOW ONE (unknown) (no (unknown) (unknown) Prescriptions: (units (unknown) date) unknown) (unknown) (no (unknown) (unknown) Previous Rx's (units ( unknown) date) unknown) (unknown) (no (unknown) (unknown) Provider Sign Out (units (unknown) date) Attestation: unknown) (unknown) (no (unknown) (unknown) Pulse Oximetry 100 (units (unknown) date) 100 unknown) (unknown) (no (unknown) (unknown) Pulse Oximetry 98 (units (unknown) date) 01/03/23 09:28 unknown) (unknown) (no (unknown) (unknown) Pulse Oximetry 98 (units (unknown) date) 99 unknown) (unknown) (no (unknown) (unknown) Pulse Oximetry 99 (units (unknown) date) 100 unknown) (unknown) (no (unknown) (unknown) Pulse Oximetry 99 (units (unknown) date) 99 unknown) (unknown) (no (unknown) (unknown) Pulse Oximetry 99 (units (unknown) date) unknown) (unknown) (no (unknown) (unknown) Pulse Rate 67 70 (units (unknown) date) unknown) (unknown) (no (unknown) (unknown) Pulse Rate 70 70 (units (unknown) date) unknown) (unknown) (no (unknown) (unknown) Pulse Rate 71 68 (units (unknown) date) unknown) (unknown) (no (unknown) (unknown) Pulse Rate 72 83 (units (unknown) date) unknown) (unknown) (no (unknown) (unknown) Pulse Rate 73 80 (units (unknown) date) unknown) (unknown) (no (unknown) (unknown) Pulse Rate 74 (units ( unknown) date) 01/03/23 09:28 unknown) (unknown) (no (unknown) (unknown) Pulse Rate 75 (units ( unknown) date) unknown) (unknown) (no (unknown) (unknown) Pulse Rate 82 76 (units (unknown) date) unknown) (unknown) (no (unknown) (unknown) Pulse Rate 91 H 76 (units (unknown) date) unknown) (unknown) (no (unknown) (unknown) RESPIRATORY: Clear (units (unknown) date) to auscultation. unknown) Breath sounds equal bilaterally. No wheezes, (unknown) (no (unknown) (unknown) RESPIRATORY: Denies (unit s (unknown) date) dyspnea, cough, unknown) wheezing, hemoptysis, sputum. (unknown) (no (unknown) (unknown) Re-evaluations: (units (unknown) date) unknown) (unknown) (no (unknown) (unknown) Referrals: (units (unk nown) date) unknown) (unknown) (no (unknown) (unknown) Related Data (units (u nknown) date) unknown) (unknown) (no (unknown) (unknown) Resource line at (units (unknown) date) [phone]. They unknown) will ask some questions about your medical (unknown) (no (unknown) (unknown) Respiratory disease (unit s (unknown) date) unknown) (unknown) (no (unknown) (unknown) Review of Systems (units (unknown) date) unknown) (unknown) (no (unknown) (unknown) Rx Instructions: (units (unknown) date) unknown) (unknown) (no (unknown) (unknown) SEEINSTR ONE (units (u nknown) date) unknown) (unknown) (no (unknown) (unknown) SKIN: Denies rash, (units (unknown) date) skin lesions, or unknown) other (unknown) (no (unknown) (unknown) SKIN: No rash or (units (unknown) date) erythema of visible unknown) areas (unknown) (no (unknown) (unknown) Scores Used: (units (u nknown) date) unknown) (unknown) (no (unknown) (unknown) See Rx Instructions (unit s (unknown) date) .ROUTE .COMPLEX Qty: unknown) 21 0RF (unknown) (no (unknown) (unknown) See Rx Instructions (unit s (unknown) date) PO .COMPLEX Qty: 10 unknown) 2RF (unknown) (no (unknown) (unknown) Sign Out (units (unkno wn) date) unknown) (unknown) (no (unknown) (unknown) Signed By: (units (unk nown) date) unknown) (unknown) (no (unknown) (unknown) Smoking Status: (units (unknown) date) Former smoker unknown) (unknown) (no (unknown) (unknown) Social History (units (unknown) date) (Reviewed 01/03/23 @ unknown) 09:38 by Sylvester Quigley DO) (unknown) (no (unknown) (unknown) Stand Alone Forms: (units (unknown) date) Patient Portal/API unknown) (unknown) (no (unknown) (unknown) Stated complaint: (units (unknown) date) stiff neck and unknown) shoulders (unknown) (no (unknown) (unknown) Stop: 01/03/23 (units (unknown) date) 09:36 unknown) (unknown) (no (unknown) (unknown) Stop: 01/03/23 (units (unknown) date) 09:37 unknown) (unknown) (no (unknown) (unknown) Stop: 01/03/23 (units (unknown) date) 12:10 unknown) (unknown) (no (unknown) (unknown) Stop: 01/03/23 (units (unknown) date) 14:10 unknown) (unknown) (no (unknown) (unknown) Stop: 01/03/23 (units (unknown) date) 19:14 unknown) (unknown) (no (unknown) (unknown) Stop: 01/03/23 (units (unknown) date) 19:22 unknown) (unknown) (no (unknown) (unknown) Surgical History (units (unknown) date) (Reviewed 01/03/23 @ unknown) 09:38 by Sylvester Quigley DO) (unknown) (no (unknown) (unknown) Time Seen by (units (u nknown) date) Provider: 01/03/23 unknown) 09:18 (unknown) (no (unknown) (unknown) Treatments: (units (un known) date) unknown) (unknown) (no (unknown) (unknown) Vital Signs - 8 hr (units (unknown) date) unknown) (unknown) (no (unknown) (unknown) Vital Signs (units (un known) date) unknown) (unknown) (no (unknown) (unknown) Vital signs: (units (u nknown) date) unknown) (unknown) (no (unknown) (unknown) While on these (units (unknown) date) medications you unknown) cannot drive or operate heavy machinery. (unknown) (no (unknown) (unknown) You have been (units ( unknown) date) prescribed a short unknown) course of narcotic medications. These are (unknown) (no (unknown) (unknown) [ ] New medication (units (unknown) date) written as a paper unknown) prescription (unknown) (no (unknown) (unknown) [ ] No new (units (unk nown) date) medications given unknown) (unknown) (no (unknown) (unknown) [ x] New medication (unit s (unknown) date) prescriptions sent unknown) to your pharmacy: [ [facility]] (unknown) (no (unknown) (unknown) a dose pack (Medrol (unit s (unknown) date) ([place])) #21 ea unknown) (unknown) (no (unknown) (unknown) additional (units (unk nown) date) outpatient follow up unknown) (unknown) (no (unknown) (unknown) advisable to (units (u nknown) date) discuss stool unknown) softeners with the pharmacist when you flower buncher or picker your (unknown) (no (unknown) (unknown) alcohol intake: (units (unknown) date) current unknown) (unknown) (no (unknown) (unknown) as a single dose; (units (unknown) date) administer as two unknown) 120 mg injections at separate sites. then (unknown) (no (unknown) (unknown) been having this (units (unknown) date) trouble for quite unknown) some time and has been taking (unknown) (no (unknown) (unknown) been reviewed with (units (unknown) date) patient as well as unknown) indications for ED re-evaluation and (unknown) (no (unknown) (unknown) blurred vision or (units (unknown) date) trouble with speech. unknown) She states that she does occasionally (unknown) (no (unknown) (unknown) breath. She denies (units (unknown) date) any sore throat or unknown) difficulty swallowing. (unknown) (no (unknown) (unknown) change in symptoms (units (unknown) date) with axial load. No unknown) measurable upper extremity numbness, (unknown) (no (unknown) (unknown) clinical (units (unkno wn) date) interaction with unknown) this patient. I was not involved in her care during (unknown) (no (unknown) (unknown) concerning (units (unk nown) date) symptoms, such as unknown) [fever greater than 101 F, shaking chills, (unknown) (no (unknown) (unknown) constipation, (units ( unknown) date) melena. unknown) (unknown) (no (unknown) (unknown) controlled (units (unk nown) date) substances through unknown) the ED and your pain management will need to be (unknown) (no (unknown) (unknown) crepitance, no (units (unknown) date) change with axial unknown) load, no measurable upper extremity weakness. (unknown) (no (unknown) (unknown) currently. She (units (unknown) date) states that her pain unknown) is worse when she moves her head [address] or (unknown) (no (unknown) (unknown) dizziness. (units (unk nown) date) unknown) (unknown) (no (unknown) (unknown) due to disc (units (un known) date) problem, much less unknown) likely meningitis versus other (unknown) (no (unknown) (unknown) emergency (units (unkn own) date) department and we unknown) would like you seen in follow-up (unknown) (no (unknown) (unknown) gabapentin 300 mg (units (unknown) date) capsule 300 mg PO unknown) BEDTIME #14 caps 01/03/23 (unknown) (no (unknown) (unknown) gabapentin 300 mg (units (unknown) date) capsule unknown) (unknown) (no (unknown) (unknown) galcanezumab-gnlm (units (unknown) date) 120 mg/mL 240 mg (2 unknown) mL) SUBCUT ONCE #1 mL 06/28/19 (unknown) (no (unknown) (unknown) get numbness and (units (unknown) date) tingling in her left unknown) hand and feels like it is heavy, not (unknown) (no (unknown) (unknown) history and help (units (unknown) date) get you set up with unknown) a doctor in the community. (unknown) (no (unknown) (unknown) hydrocodone 5 (units ( unknown) date) mg-acetaminophen 325 unknown) 1 tab PO Q4-6H PRN pain #10 tabs 01/03/23 (unknown) (no (unknown) (unknown) hydrocodone-acetami (unit s (unknown) date) nophen 5-325 mg unknown) tablet (unknown) (no (unknown) (unknown) hydroxyzine HCl 25 (units (unknown) date) mg tablet 25 mg PO unknown) DAILY 05/09/19 05/09/19 (unknown) (no (unknown) (unknown) hydroxyzine HCl 25 (units (unknown) date) mg tablet unknown) (unknown) (no (unknown) (unknown) icterus. No (units (un known) date) injection or unknown) drainage. (unknown) (no (unknown) (unknown) info listed below. (units (unknown) date) Call the office unknown) tomorrow, let them know you were seen in the (unknown) (no (unknown) (unknown) marital status: (units (unknown) date) unknown) (unknown) (no (unknown) (unknown) metformin 1,000 mg (units (unknown) date) tablet 750 mg PO unknown) DAILY 05/09/19 05/09/19 (unknown) (no (unknown) (unknown) metformin 1,000 mg (units (unknown) date) tablet unknown) (unknown) (no (unknown) (unknown) methylprednisolone (units (unknown) date) 4 mg tablets in See unknown) Rx Instructions PO .COMPLEX 01/03/23 (unknown) (no (unknown) (unknown) methylprednisolone (units (unknown) date) [Medrol (Roque)] 4 mg unknown) tablets,dose pack (unknown) (no (unknown) (unknown) mg tablet (units (unkn own) date) unknown) (unknown) (no (unknown) (unknown) mg-hydrochlorothiaz (unit s (unknown) date) eun 25 mg unknown) (unknown) (no (unknown) (unknown) no fever or chills (units (unknown) date) and takes no blood unknown) thinners. She denies any headaches, (unknown) (no (unknown) (unknown) orally per package (units (unknown) date) directions unknown) (unknown) (no (unknown) (unknown) mpmi-wts-qxumrya (units (unknown) date) Tylenol, unknown) anti-inflammatories and a prescription of tizanidine (unknown) (no (unknown) (unknown) palpation or (units (u nknown) date) attempts at active unknown) range of motion (unknown) (no (unknown) (unknown) paroxetine HCl 10 (units (unknown) date) mg tablet 10 mg PO unknown) DAILY 05/09/19 05/09/19 (unknown) (no (unknown) (unknown) paroxetine HCl 10 (units (unknown) date) mg tablet unknown) (unknown) (no (unknown) (unknown) paroxetine HCl 40 (units (unknown) date) mg tablet 40 mg PO unknown) DAILY 05/09/19 05/09/19 (unknown) (no (unknown) (unknown) paroxetine HCl 40 (units (unknown) date) mg tablet unknown) (unknown) (no (unknown) (unknown) potentially (units (un known) date) dangerous and unknown) addictive medications that should be used carefully. (unknown) (no (unknown) (unknown) prescription. (units ( unknown) date) unknown) (unknown) (no (unknown) (unknown) presents with a (units (unknown) date) chief complaint of unknown) stiff neck and shoulders. She states she is (unknown) (no (unknown) (unknown) rales, or rhonchi. (units (unknown) date) unknown) (unknown) (no (unknown) (unknown) release (units (unkno wn) date) unknown) (unknown) (no (unknown) (unknown) replaces micardis (units (unknown) date) unknown) (unknown) (no (unknown) (unknown) rizatriptan 10 mg (units (unknown) date) tablet (Maxalt) See unknown) Rx Instructions PO .COMPLEX 06/14/19 (unknown) (no (unknown) (unknown) rizatriptan 5 mg (units (unknown) date) tablet 5 mg PO ONCE unknown) 05/09/19 05/09/19 (unknown) (no (unknown) (unknown) rizatriptan 5 mg (units (unknown) date) tablet unknown) (unknown) (no (unknown) (unknown) rizatriptan (units (un known) date) [Maxalt] 10 mg unknown) tablet (unknown) (no (unknown) (unknown) subcutaneous (units (u nknown) date) syringe (Emgality) unknown) (unknown) (no (unknown) (unknown) tablet (Micardis (units (unknown) date) HCT) unknown) (unknown) (no (unknown) (unknown) take 1 tab at onset (unit s (unknown) date) of headache; if no unknown) relief may repeat 1 tab in 2hr; max = (unknown) (no (unknown) (unknown) tearful, obviously (units (unknown) date) uncomfortable unknown) (unknown) (no (unknown) (unknown) telmisartan 80 1 (units (unknown) date) tab PO DAILY unknown) 05/09/19 05/09/19 (unknown) (no (unknown) (unknown) telmisartan-hydroch (unit s (unknown) date) lorothiazid unknown) [Micardis HCT] 80-25 mg tablet (unknown) (no (unknown) (unknown) the other. She (units (unknown) date) denies any midline unknown) pain. She has no chest pain or shortness of (unknown) (no (unknown) (unknown) this emergency (units (unknown) date) department visit. unknown) (unknown) (no (unknown) (unknown) this. Many people (units (unknown) date) get constipated on unknown) narcotic medications so it would be (unknown) (no (unknown) (unknown) through your (units (u nknown) date) Primary Care unknown) Provider (unknown) (no (unknown) (unknown) tingling or (units (un known) date) weakness. She does unknown) have pain in the paraspinal musculature with (unknown) (no (unknown) (unknown) tonsillar (units (unkn own) date) hypertrophy or unknown) exudate. Airway patent. (unknown) (no (unknown) (unknown) verapamil 120 mg (units (unknown) date) tablet extended unknown) release (unknown) (no (unknown) (unknown) verapamil 120 mg (units (unknown) date) tablet,extended 120 unknown) mg PO DAILY #90 tabs 11/18/19 (unknown) (no (unknown) (unknown) which does not seem (unit s (unknown) date) to be helping. She unknown) denies any trauma or injury. She is had (unknown) (no (unknown) (unknown) worsening pain, (units (unknown) date) persistent vomiting unknown) or other bothersome symptoms] Result panel 6 (unknown) (no (unknown) (unknown) (no value) (units (unk nown) date) unknown) (unknown) (no (unknown) (unknown) #10 tabs (units (unkno wn) date) unknown) (unknown) (no (unknown) (unknown) <Electronically (units (unknown) date) signed by Sylvester unknown) Rudy Quigley> (unknown) (no (unknown) (unknown) <Electronically (units (unknown) date) signed by Julio unknownDominick Varela D.O.> (unknown) (no (unknown) (unknown) <Sylvester Quigley DO (units (unknown) date) - Last Filed: unknown) 01/04/23 07:17> (unknown) (no (unknown) (unknown) <Julio Varela DO (unit s (unknown) date) - Last Filed: unknown) 01/03/23 19:39> (unknown) (no (unknown) (unknown) *If you do not have (unit s (unknown) date) a primary care unknown) provider please contact the [facility] (unknown) (no (unknown) (unknown) *Please continue to (unit s (unknown) date) take your regular unknown) medications as directed. (unknown) (no (unknown) (unknown) *Please follow (units (unknown) date) Amira at [facility] unknown) [facility], please see the contact (unknown) (no (unknown) (unknown) *Return to (units (unk nown) date) Emergency Department unknown) if you should have any new, worsening or (unknown) (no (unknown) (unknown) *What to do: (units (u nknown) date) unknown) (unknown) (no (unknown) (unknown) *You have been (units (unknown) date) diagnosed with [neck unknown) pain with C6 disc protrusion] (unknown) (no (unknown) (unknown) 01/03/23 1939 (units ( unknown) date) unknown) (unknown) (no (unknown) (unknown) 01/03/23 (units (unkno wn) date) unknown) (unknown) (no (unknown) (unknown) 01/04/23 0717 (units ( unknown) date) unknown) (unknown) (no (unknown) (unknown) 1 per month. (units (u nknown) date) unknown) (unknown) (no (unknown) (unknown) 1 tab PO DAILY (units (unknown) date) unknown) (unknown) (no (unknown) (unknown) 1 tab PO Q4-6H PRN (units (unknown) date) (Reason: pain) Qty: unknown) 10 0RF (unknown) (no (unknown) (unknown) 10 mg PO DAILY (units (unknown) date) unknown) (unknown) (no (unknown) (unknown) 12 point review of (units (unknown) date) systems is negative unknown) except for those stated above (unknown) (no (unknown) (unknown) 120 mg PO DAILY (units (unknown) date) Qty: 90 1RF unknown) (unknown) (no (unknown) (unknown) 12:00 01/03/23 (units (unknown) date) unknown) (unknown) (no (unknown) (unknown) 12:30 (units (unkno wn) date) unknown) (unknown) (no (unknown) (unknown) 13:00 01/03/23 (units (unknown) date) unknown) (unknown) (no (unknown) (unknown) 13:30 (units (unkno wn) date) unknown) (unknown) (no (unknown) (unknown) 14:00 01/03/23 (units (unknown) date) unknown) (unknown) (no (unknown) (unknown) 14:30 (units (unkno wn) date) unknown) (unknown) (no (unknown) (unknown) 15:27 01/03/23 (units (unknown) date) unknown) (unknown) (no (unknown) (unknown) 15:28 01/03/23 (units (unknown) date) unknown) (unknown) (no (unknown) (unknown) 15:28 (units (unkno wn) date) unknown) (unknown) (no (unknown) (unknown) 15:30 01/03/23 (units (unknown) date) unknown) (unknown) (no (unknown) (unknown) 16:00 01/03/23 (units (unknown) date) unknown) (unknown) (no (unknown) (unknown) 16:00 (units (unkno wn) date) unknown) (unknown) (no (unknown) (unknown) 16:30 01/03/23 (units (unknown) date) unknown) (unknown) (no (unknown) (unknown) 17:00 01/03/23 (units (unknown) date) unknown) (unknown) (no (unknown) (unknown) 17:00 (units (unkno wn) date) unknown) (unknown) (no (unknown) (unknown) 17:30 01/03/23 (units (unknown) date) unknown) (unknown) (no (unknown) (unknown) 18:00 01/03/23 (units (unknown) date) unknown) (unknown) (no (unknown) (unknown) 18:00 (units (unkno wn) date) unknown) (unknown) (no (unknown) (unknown) 19:25 01/03/23 (units (unknown) date) unknown) (unknown) (no (unknown) (unknown) 19:25 (units (unkno wn) date) unknown) (unknown) (no (unknown) (unknown) 240 mg SUBCUT ONCE (units (unknown) date) Qty: 1 12RF unknown) (unknown) (no (unknown) (unknown) 25 mg PO DAILY (units (unknown) date) unknown) (unknown) (no (unknown) (unknown) 3 tabs/day (24hr) (units (unknown) date) PO unknown) (unknown) (no (unknown) (unknown) 300 mg PO BEDTIME (units (unknown) date) Qty: 14 0RF unknown) (unknown) (no (unknown) (unknown) 267554 (units (unkno wn) date) unknown) (unknown) (no (unknown) (unknown) 40 mg PO DAILY (units (unknown) date) unknown) (unknown) (no (unknown) (unknown) 42-year-old female (units (unknown) date) former smoker with unknown) history of diabetes and chronic migraines (unknown) (no (unknown) (unknown) 5 mg PO ONCE (units (u nknown) date) unknown) (unknown) (no (unknown) (unknown) 750 mg PO DAILY (units (unknown) date) unknown) (unknown) (no (unknown) (unknown) Activity (units (unkno wn) date) Restrictions/Additio unknown) nal Instructions: (unknown) (no (unknown) (unknown) Additionally, you (units (unknown) date) cannot sign legal unknown) documents or perform any duties such as (unknown) (no (unknown) (unknown) Age/Sex: 42 / F (units (unknown) date) unknown) (unknown) (no (unknown) (unknown) Allergies (units (unkn own) date) unknown) (unknown) (no (unknown) (unknown) Allergy/AdvReac (units (unknown) date) Type Severity unknown) Reaction Status Date / Time (unknown) (no (unknown) (unknown) BACK: Nontender (units (unknown) date) without deformity or unknown) crepitance. No flank tenderness. (unknown) (no (unknown) (unknown) Because of the EMR (units (unknown) date) my name was assigned unknown) to this patient inadvertently. I had no (unknown) (no (unknown) (unknown) Blood Pressure (units (unknown) date) 133/69 unknown) (unknown) (no (unknown) (unknown) Blood Pressure (units (unknown) date) 135/75 unknown) (unknown) (no (unknown) (unknown) Blood Pressure (units (unknown) date) 135/76 unknown) (unknown) (no (unknown) (unknown) Blood Pressure (units (unknown) date) 136/91 H unknown) (unknown) (no (unknown) (unknown) Blood Pressure (units (unknown) date) 139/84 unknown) (unknown) (no (unknown) (unknown) Blood Pressure (units (unknown) date) 140/84 unknown) (unknown) (no (unknown) (unknown) Blood Pressure (units (unknown) date) 142/83 H unknown) (unknown) (no (unknown) (unknown) Blood Pressure (units (unknown) date) 145/80 H unknown) (unknown) (no (unknown) (unknown) Blood Pressure (units (unknown) date) 183/97 H 01/03/23 unknown) 09:28 (unknown) (no (unknown) (unknown) CARDIOVASCULAR: (units (unknown) date) Denies chest pain, unknown) palpitations, orthopnea, edema, (unknown) (no (unknown) (unknown) CARDIOVASCULAR: (units (unknown) date) Regular rate and unknown) rhythm without murmurs, gallops, or rubs. (unknown) (no (unknown) (unknown) CC: 42-year-old (units (unknown) date) female with muscular unknown) neck pain (unknown) (no (unknown) (unknown) Cervical (units (unkno wn) date) radiculopathy at C6 unknown) (unknown) (no (unknown) (unknown) Chief complaint: (units (unknown) date) Back Pain/Injury unknown) (unknown) (no (unknown) (unknown) Clinical (units (unkno wn) date) Impression: unknown) (unknown) (no (unknown) (unknown) Complicating (units (u nknown) date) co-morbidities: unknown) Hypertension, migraines, chronic neck pain (unknown) (no (unknown) (unknown) Consultation #1: (units (unknown) date) unknown) (unknown) (no (unknown) (unknown) Consultations (units ( unknown) date) unknown) (unknown) (no (unknown) (unknown) Consultations: (units (unknown) date) On-call orthopedist unknown) see details above (unknown) (no (unknown) (unknown) Course (units (unkno wn) date) unknown) (unknown) (no (unknown) (unknown) : 1980 (units (unknown) date) Acct:[id number] unknown) (unknown) (no (unknown) (unknown) Data collected (units (unknown) date) from: Patient unknown) (unknown) (no (unknown) (unknown) Date of Service: (units (unknown) date) 01/03/23 unknown) (unknown) (no (unknown) (unknown) Departure (units (unkn own) date) unknown) (unknown) (no (unknown) (unknown) Diabetes mellitus (units (unknown) date) unknown) (unknown) (no (unknown) (unknown) Diazepam (Diazepam (units (unknown) date) 2 Mg Tablet) 2 mg PO unknown) NOW ONE (unknown) (no (unknown) (unknown) Differential (units (u nknown) date) considered, but not unknown) limited to: Muscle spasm, radicular symptoms (unknown) (no (unknown) (unknown) Discharge Plan (units (unknown) date) unknown) (unknown) (no (unknown) (unknown) Discontinued (units (u nknown) date) Medications unknown) (unknown) (no (unknown) (unknown) Discussed MRI (units ( unknown) date) findings with unknown) on-call orthopedist, Dr. Collier, he agrees there is (unknown) (no (unknown) (unknown) Discussion: Patient (unit s (unknown) date) with worsening neck unknown) pain in the absence of high-risk (unknown) (no (unknown) (unknown) Disposition: see (units (unknown) date) below, along with unknown) detailed discharge instructions that have (unknown) (no (unknown) (unknown) Documented By: AT (units (unknown) date) unknown) (unknown) (no (unknown) (unknown) Documented By: RB (units (unknown) date) unknown) (unknown) (no (unknown) (unknown) Documented By: SB (units (unknown) date) unknown) (unknown) (no (unknown) (unknown) Dose Instruction: (units (unknown) date) unknown) (unknown) (no (unknown) (unknown) Dr varela: This (units (unknown) date) note is signed by unknown) myself for administrative purposes only. (unknown) (no (unknown) (unknown) ENT: Nose without (units (unknown) date) bleeding, purulent unknown) drainage. Throat without erythema, (unknown) (no (unknown) (unknown) ER Physician: (units ( unknown) date) Sylvester Quigley D.O. unknown) (unknown) (no (unknown) (unknown) EXTREMITIES: No (units (unknown) date) edema or joint unknown) tenderness. (unknown) (no (unknown) (unknown) EYES: Pupils equal (units (unknown) date) round and reactive. unknown) Extraocular motions intact. No scleral (unknown) (no (unknown) (unknown) Emergency Report (units (unknown) date) unknown) (unknown) (no (unknown) (unknown) Emgality Syringe (units (unknown) date) 120 mg/mL syringe unknown) (unknown) (no (unknown) (unknown) Exam Narrative: (units (unknown) date) unknown) (unknown) (no (unknown) (unknown) Exam and history (units (unknown) date) are very reassuring. unknown) MRI obtained given the report of (unknown) (no (unknown) (unknown) Exam documented (units (unknown) date) above, pertinent unknown) findings include: No midline bony tenderness, (unknown) (no (unknown) (unknown) Exam (units (unkno wn) date) unknown) (unknown) (no (unknown) (unknown) Family History (units (unknown) date) (Reviewed 01/03/23 @ unknown) 09:38 by Sylvester Quigley DO) (unknown) (no (unknown) (unknown) Father (units (unkno wn) date) Developmental delay unknown) (unknown) (no (unknown) (unknown) GASTROINTESTINAL: (units (unknown) date) Abdomen soft, unknown) non-tender, nondistended. (unknown) (no (unknown) (unknown) GASTROINTESTINAL: (units (unknown) date) Denies nausea, unknown) vomiting, abdominal pain, diarrhea, (unknown) (no (unknown) (unknown) GENERAL: Denies (units (unknown) date) chills, fatigue, unknown) malaise, fever, sweats. (unknown) (no (unknown) (unknown) GENERAL: [42] year (units (unknown) date) old patient appears unknown) stated age. Well-developed patient, (unknown) (no (unknown) (unknown) : Denies dysuria, (unit s (unknown) date) frequency, unknown) incontinence, hematuria, urinary retention. (unknown) (no (unknown) (unknown) Gabapentin (units (unk nown) date) (Gabapentin 300 Mg unknown) Capsule) 300 mg PO NOW ONE (unknown) (no (unknown) (unknown) General (units (unkno wn) date) unknown) (unknown) (no (unknown) (unknown) HEAD: Atraumatic. (units (unknown) date) Normocephalic. unknown) (unknown) (no (unknown) (unknown) HEENT: Denies sinus (unit s (unknown) date) pain, ear pain, sore unknown) throat, difficulty swallowing, (unknown) (no (unknown) (unknown) HPI - General Adult (unit s (unknown) date) unknown) (unknown) (no (unknown) (unknown) HPI narrative: (units (unknown) date) unknown) (unknown) (no (unknown) (unknown) History of (units (unk nown) date) unknown) (unknown) (no (unknown) (unknown) History of Present (units (unknown) date) Illness unknown) (unknown) (no (unknown) (unknown) History of (units (unk nown) date) cholecystectomy unknown) (unknown) (no (unknown) (unknown) History of (units (unk nown) date) hysterectomy unknown) (unknown) (no (unknown) (unknown) History of (units (unk nown) date) lithotripsy unknown) (unknown) (no (unknown) (unknown) Home Medications (units (unknown) date) unknown) (unknown) (no (unknown) (unknown) Hydrocodone (units (un known) date) Bitart/Acetaminophen unknown) (Hydrocodone/Acet 5/325 Prepack) 1 bottle MISC (unknown) (no (unknown) (unknown) Hydrocodone (units (un known) date) Bitart/Acetaminophen unknown) (Hydrocodone/Acet 5/325 Tablet) 1 tab PO NOW (unknown) (no (unknown) (unknown) Imaging studies (units (unknown) date) independently unknown) reviewed: MRI notes disc involvement but no (unknown) (no (unknown) (unknown) Initial Vital Signs (unit s (unknown) date) unknown) (unknown) (no (unknown) (unknown) Initial Vital (units ( unknown) date) Signs: unknown) (unknown) (no (unknown) (unknown) Instructions: DI (units (unknown) date) for Cervical unknown) Radiculopathy (unknown) (no (unknown) (unknown) [facility] (units (unknown) date) [address] unknown) [place] [address] (unknown) (no (unknown) (unknown) Ketorolac (units (unkn own) date) Tromethamine unknown) (Ketorolac 30 Mg/Ml Vial) 30 mg IM NOW ONE (unknown) (no (unknown) (unknown) Last Admin: (units (un known) date) 01/03/23 09:41 Dose: unknown) 2 mg (unknown) (no (unknown) (unknown) Last Admin: (units (un known) date) 01/03/23 09:41 Dose: unknown) 30 mg (unknown) (no (unknown) (unknown) Last Admin: (units (un known) date) 01/03/23 12:21 Dose: unknown) 1 tab (unknown) (no (unknown) (unknown) Last Admin: (units (un known) date) 01/03/23 14:13 Dose: unknown) 2 mg (unknown) (no (unknown) (unknown) Last Admin: (units (un known) date) 01/03/23 19:23 Dose: unknown) 300 mg (unknown) (no (unknown) (unknown) Last Admin: (units (un known) date) 01/03/23 19:23 Dose: unknown) 40 mg (unknown) (no (unknown) (unknown) Last Admin: (units (un known) date) 01/03/23 19:27 Dose: unknown) 1 bottle (unknown) (no (unknown) (unknown) MDM Narrative (units ( unknown) date) unknown) (unknown) (no (unknown) (unknown) MUSCULOSKELETAL: (units (unknown) date) See HPI unknown) (unknown) (no (unknown) (unknown) Medical Decision (units (unknown) date) Making unknown) (unknown) (no (unknown) (unknown) Medical decision (units (unknown) date) making narrative: unknown) (unknown) (no (unknown) (unknown) Medical records (units (unknown) date) reviewed: Prior unknown) notes reviewed in our EMR (unknown) (no (unknown) (unknown) Medication (units (unk nown) date) Instructions unknown) Recorded Confirmed (unknown) (no (unknown) (unknown) Medication (units (unk nown) date) Instructions unknown) Recorded (unknown) (no (unknown) (unknown) Mental disability (units (unknown) date) unknown) (unknown) (no (unknown) (unknown) Migraines (units (unkn own) date) unknown) (unknown) (no (unknown) (unknown) Miscellaneous,[place]cto (unit s (unknown) date) MD blayne [Non-Staff] unknown) (unknown) (no (unknown) (unknown) Mother Hypertension (unit s (unknown) date) unknown) (unknown) (no (unknown) (unknown) NECK: Trachea (units ( unknown) date) midline. No midline unknown) bony tenderness, step-offs or crepitance, no (unknown) (no (unknown) (unknown) NEURO: AOx3. (units (u nknown) date) unknown) (unknown) (no (unknown) (unknown) NEUROLOGIC: See HPI (unit s (unknown) date) unknown) (unknown) (no (unknown) (unknown) Narrative (units (unkn own) date) unknown) (unknown) (no (unknown) (unknown) Narrative: (units (unk nown) date) unknown) (unknown) (no (unknown) (unknown) Negative Minervaniandre's (units (unknown) date) sign. A+O x3. unknown) (unknown) (no (unknown) (unknown) New (units (unkno wn) date) unknown) (unknown) (no (unknown) (unknown) No Action (units (unkn own) date) unknown) (unknown) (no (unknown) (unknown) No Known Drug (units ( unknown) date) Allergies Allergy unknown) Verified 01/03/23 09:35 (unknown) (no (unknown) (unknown) ONE (units (unkno wn) date) unknown) (unknown) (no (unknown) (unknown) Mars Collier MD (unit s (unknown) date) [Physician] unknown) (unknown) (no (unknown) (unknown) Ordered: (units (unkno wn) date) unknown) (unknown) (no (unknown) (unknown) Orders (units (unkno wn) date) unknown) (unknown) (no (unknown) (unknown) Oxygen Delivery (units (unknown) date) Method Room Air unknown) (unknown) (no (unknown) (unknown) Oxygen Delivery (units (unknown) date) Method unknown) (unknown) (no (unknown) (unknown) PSYCHIATRIC: No (units (unknown) date) concerning unknown) psychosocial issues. (unknown) (no (unknown) (unknown) Patient (units (unkno wn) date) Disposition: Home unknown) (unknown) (no (unknown) (unknown) Patient History (units (unknown) date) unknown) (unknown) (no (unknown) (unknown) Patient: (units (unkno wn) date) Adore Munoz MR#: unknown) [id number] (unknown) (no (unknown) (unknown) Please understand (units (unknown) date) that we cannot unknown) provide further refills of narcotics or (unknown) (no (unknown) (unknown) Prednisone (units (unk nown) date) (Prednisone 20 Mg unknown) Tablet) 40 mg PO NOW ONE (unknown) (no (unknown) (unknown) Prescriptions: (units (unknown) date) unknown) (unknown) (no (unknown) (unknown) Previous Rx's (units ( unknown) date) unknown) (unknown) (no (unknown) (unknown) Provider Sign Out (units (unknown) date) Attestation: unknown) (unknown) (no (unknown) (unknown) Pulse Oximetry 100 (units (unknown) date) 100 unknown) (unknown) (no (unknown) (unknown) Pulse Oximetry 98 (units (unknown) date) 01/03/23 09:28 unknown) (unknown) (no (unknown) (unknown) Pulse Oximetry 98 (units (unknown) date) 99 unknown) (unknown) (no (unknown) (unknown) Pulse Oximetry 99 (units (unknown) date) 100 unknown) (unknown) (no (unknown) (unknown) Pulse Oximetry 99 (units (unknown) date) 99 unknown) (unknown) (no (unknown) (unknown) Pulse Oximetry 99 (units (unknown) date) unknown) (unknown) (no (unknown) (unknown) Pulse Rate 67 70 (units (unknown) date) unknown) (unknown) (no (unknown) (unknown) Pulse Rate 70 70 (units (unknown) date) unknown) (unknown) (no (unknown) (unknown) Pulse Rate 71 68 (units (unknown) date) unknown) (unknown) (no (unknown) (unknown) Pulse Rate 72 83 (units (unknown) date) unknown) (unknown) (no (unknown) (unknown) Pulse Rate 73 80 (units (unknown) date) unknown) (unknown) (no (unknown) (unknown) Pulse Rate 74 (units ( unknown) date) 01/03/23 09:28 unknown) (unknown) (no (unknown) (unknown) Pulse Rate 75 (units ( unknown) date) unknown) (unknown) (no (unknown) (unknown) Pulse Rate 82 76 (units (unknown) date) unknown) (unknown) (no (unknown) (unknown) Pulse Rate 91 H 76 (units (unknown) date) unknown) (unknown) (no (unknown) (unknown) RESPIRATORY: Clear (units (unknown) date) to auscultation. unknown) Breath sounds equal bilaterally. No wheezes, (unknown) (no (unknown) (unknown) RESPIRATORY: Denies (unit s (unknown) date) dyspnea, cough, unknown) wheezing, hemoptysis, sputum. (unknown) (no (unknown) (unknown) Re-evaluations: (units (unknown) date) Improved symptoms, unknown) pain controlled (unknown) (no (unknown) (unknown) Referrals: (units (unk nown) date) unknown) (unknown) (no (unknown) (unknown) Related Data (units (u nknown) date) unknown) (unknown) (no (unknown) (unknown) Resource line at (units (unknown) date) [phone]. They unknown) will ask some questions about your medical (unknown) (no (unknown) (unknown) Respiratory disease (unit s (unknown) date) unknown) (unknown) (no (unknown) (unknown) Review of Systems (units (unknown) date) unknown) (unknown) (no (unknown) (unknown) Rx Instructions: (units (unknown) date) unknown) (unknown) (no (unknown) (unknown) SEEINSTR ONE (units (u nknown) date) unknown) (unknown) (no (unknown) (unknown) SKIN: Denies rash, (units (unknown) date) skin lesions, or unknown) other (unknown) (no (unknown) (unknown) SKIN: No rash or (units (unknown) date) erythema of visible unknown) areas (unknown) (no (unknown) (unknown) See Rx Instructions (unit s (unknown) date) .ROUTE .COMPLEX Qty: unknown) 21 0RF (unknown) (no (unknown) (unknown) See Rx Instructions (unit s (unknown) date) PO .COMPLEX Qty: 10 unknown) 2RF (unknown) (no (unknown) (unknown) Sign Out (units (unkno wn) date) unknown) (unknown) (no (unknown) (unknown) Signed By: (units (unk nown) date) unknown) (unknown) (no (unknown) (unknown) Smoking Status: (units (unknown) date) Former smoker unknown) (unknown) (no (unknown) (unknown) Social History (units (unknown) date) (Reviewed 01/03/23 @ unknown) 09:38 by Sylvester Quigley DO) (unknown) (no (unknown) (unknown) Stand Alone Forms: (units (unknown) date) Patient Portal/API unknown) (unknown) (no (unknown) (unknown) Stated complaint: (units (unknown) date) stiff neck and unknown) shoulders (unknown) (no (unknown) (unknown) Stop: 01/03/23 (units (unknown) date) 09:36 unknown) (unknown) (no (unknown) (unknown) Stop: 01/03/23 (units (unknown) date) 09:37 unknown) (unknown) (no (unknown) (unknown) Stop: 01/03/23 (units (unknown) date) 12:10 unknown) (unknown) (no (unknown) (unknown) Stop: 01/03/23 (units (unknown) date) 14:10 unknown) (unknown) (no (unknown) (unknown) Stop: 01/03/23 (units (unknown) date) 19:14 unknown) (unknown) (no (unknown) (unknown) Stop: 01/03/23 (units (unknown) date) 19:22 unknown) (unknown) (no (unknown) (unknown) Surgical History (units (unknown) date) (Reviewed 01/03/23 @ unknown) 09:38 by Sylvester Quigley DO) (unknown) (no (unknown) (unknown) Time Seen by (units (u nknown) date) Provider: 01/03/23 unknown) 09:18 (unknown) (no (unknown) (unknown) Treatments: Valium, (unit s (unknown) date) hydrocodone, unknown) gabapentin, steroids (unknown) (no (unknown) (unknown) Vital Signs - 8 hr (units (unknown) date) unknown) (unknown) (no (unknown) (unknown) Vital Signs (units (un known) date) unknown) (unknown) (no (unknown) (unknown) Vital signs: (units (u nknown) date) unknown) (unknown) (no (unknown) (unknown) While on these (units (unknown) date) medications you unknown) cannot drive or operate heavy machinery. (unknown) (no (unknown) (unknown) You have been (units ( unknown) date) prescribed a short unknown) course of narcotic medications. These are (unknown) (no (unknown) (unknown) [ ] New medication (units (unknown) date) written as a paper unknown) prescription (unknown) (no (unknown) (unknown) [ ] No new (units (unk nown) date) medications given unknown) (unknown) (no (unknown) (unknown) [ x] New medication (unit s (unknown) date) prescriptions sent unknown) to your pharmacy: [ [facility]] (unknown) (no (unknown) (unknown) a dose pack (Medrol (unit s (unknown) date) ([place])) #21 ea unknown) (unknown) (no (unknown) (unknown) advisable to (units (u nknown) date) discuss stool unknown) softeners with the pharmacist when you flower buncher or picker your (unknown) (no (unknown) (unknown) alcohol intake: (units (unknown) date) current unknown) (unknown) (no (unknown) (unknown) as a single dose; (units (unknown) date) administer as two unknown) 120 mg injections at separate sites. then (unknown) (no (unknown) (unknown) been having this (units (unknown) date) trouble for quite unknown) some time and has been taking (unknown) (no (unknown) (unknown) been reviewed with (units (unknown) date) patient as well as unknown) indications for ED re-evaluation and add (unknown) (no (unknown) (unknown) blurred vision or (units (unknown) date) trouble with speech. unknown) She states that she does occasionally (unknown) (no (unknown) (unknown) breath. She denies (units (unknown) date) any sore throat or unknown) difficulty swallowing. (unknown) (no (unknown) (unknown) change in symptoms (units (unknown) date) with axial load. No unknown) measurable upper extremity numbness, (unknown) (no (unknown) (unknown) clinical (units (unkno wn) date) interaction with unknown) this patient. I was not involved in her care during (unknown) (no (unknown) (unknown) concerning (units (unk nown) date) symptoms, such as unknown) [fever greater than 101 F, shaking chills, (unknown) (no (unknown) (unknown) constipation, (units ( unknown) date) melena. unknown) (unknown) (no (unknown) (unknown) controlled (units (unk nown) date) substances through unknown) the ED and your pain management will need to be (unknown) (no (unknown) (unknown) crepitance, no (units (unknown) date) change with axial unknown) load, no measurable upper extremity weakness. (unknown) (no (unknown) (unknown) currently. She (units (unknown) date) states that her pain unknown) is worse when she moves her head [address] or (unknown) (no (unknown) (unknown) dizziness. (units (unk nown) date) unknown) (unknown) (no (unknown) (unknown) due to disc (units (un known) date) problem, much less unknown) likely meningitis versus other (unknown) (no (unknown) (unknown) emergency (units (unkn own) date) department and we unknown) would like you seen in follow-up (unknown) (no (unknown) (unknown) encouraged close (units (unknown) date) follow-up with unknown) orthopedist (unknown) (no (unknown) (unknown) evidence of (units (un known) date) neurosurgical unknown) emergency (unknown) (no (unknown) (unknown) features such as (units (unknown) date) fever, trauma, use unknown) of blood thinners or extremity weakness. (unknown) (no (unknown) (unknown) gabapentin 300 mg (units (unknown) date) capsule 300 mg PO unknown) BEDTIME #14 caps 01/03/23 (unknown) (no (unknown) (unknown) gabapentin 300 mg (units (unknown) date) capsule unknown) (unknown) (no (unknown) (unknown) galcanezumab-gnlm (units (unknown) date) 120 mg/mL 240 mg (2 unknown) mL) SUBCUT ONCE #1 mL 06/28/19 (unknown) (no (unknown) (unknown) get numbness and (units (unknown) date) tingling in her left unknown) hand and feels like it is heavy, not (unknown) (no (unknown) (unknown) history and help (units (unknown) date) get you set up with unknown) a doctor in the community. (unknown) (no (unknown) (unknown) hydrocodone 5 (units ( unknown) date) mg-acetaminophen 325 unknown) 1 tab PO Q4-6H PRN pain #10 tabs 01/03/23 (unknown) (no (unknown) (unknown) hydrocodone-acetami (unit s (unknown) date) nophen 5-325 mg unknown) tablet (unknown) (no (unknown) (unknown) hydroxyzine HCl 25 (units (unknown) date) mg tablet 25 mg PO unknown) DAILY 05/09/19 05/09/19 (unknown) (no (unknown) (unknown) hydroxyzine HCl 25 (units (unknown) date) mg tablet unknown) (unknown) (no (unknown) (unknown) icterus. No (units (un known) date) injection or unknown) drainage. (unknown) (no (unknown) (unknown) info listed below. (units (unknown) date) Call the office unknown) tomorrow, let them know you were seen in the (unknown) (no (unknown) (unknown) itional outpatient (units (unknown) date) follow up unknown) (unknown) (no (unknown) (unknown) marital status: (units (unknown) date) unknown) (unknown) (no (unknown) (unknown) metformin 1,000 mg (units (unknown) date) tablet 750 mg PO unknown) DAILY 05/09/19 05/09/19 (unknown) (no (unknown) (unknown) metformin 1,000 mg (units (unknown) date) tablet unknown) (unknown) (no (unknown) (unknown) methylprednisolone (units (unknown) date) 4 mg tablets in See unknown) Rx Instructions PO .COMPLEX 01/03/23 (unknown) (no (unknown) (unknown) methylprednisolone (units (unknown) date) [Medrol ([place])] 4 mg unknown) tablets,dose pack (unknown) (no (unknown) (unknown) mg tablet (units (unkn own) date) unknown) (unknown) (no (unknown) (unknown) mg-hydrochlorothiaz (unit s (unknown) date) eun 25 mg unknown) (unknown) (no (unknown) (unknown) no fever or chills (units (unknown) date) and takes no blood unknown) thinners. She denies any headaches, (unknown) (no (unknown) (unknown) no indication for (units (unknown) date) neurosurgical unknown) intervention or immediate consultation, (unknown) (no (unknown) (unknown) occasional tingling (unit s (unknown) date) in her left hand unknown) findings noted above. Patient did well (unknown) (no (unknown) (unknown) orally per package (units (unknown) date) directions unknown) (unknown) (no (unknown) (unknown) uqge-hli-yfmrldh (units (unknown) date) Tylenol, unknown) anti-inflammatories and a prescription of tizanidine (unknown) (no (unknown) (unknown) palpation or (units (u nknown) date) attempts at active unknown) range of motion (unknown) (no (unknown) (unknown) paroxetine HCl 10 (units (unknown) date) mg tablet 10 mg PO unknown) DAILY 05/09/19 05/09/19 (unknown) (no (unknown) (unknown) paroxetine HCl 10 (units (unknown) date) mg tablet unknown) (unknown) (no (unknown) (unknown) paroxetine HCl 40 (units (unknown) date) mg tablet 40 mg PO unknown) DAILY 05/09/19 05/09/19 (unknown) (no (unknown) (unknown) paroxetine HCl 40 (units (unknown) date) mg tablet unknown) (unknown) (no (unknown) (unknown) potentially (units (un known) date) dangerous and unknown) addictive medications that should be used carefully. (unknown) (no (unknown) (unknown) prescription. (units ( unknown) date) unknown) (unknown) (no (unknown) (unknown) presents with a (units (unknown) date) chief complaint of unknown) stiff neck and shoulders. She states she is (unknown) (no (unknown) (unknown) rales, or rhonchi. (units (unknown) date) unknown) (unknown) (no (unknown) (unknown) recommend (units (unkno wn) date) symptomatic unknown) treatment, encouragement to follow with orthopedic office. (unknown) (no (unknown) (unknown) release (units (unkno wn) date) unknown) (unknown) (no (unknown) (unknown) replaces micardis (units (unknown) date) unknown) (unknown) (no (unknown) (unknown) rizatriptan 10 mg (units (unknown) date) tablet (Maxalt) See unknown) Rx Instructions PO .COMPLEX 06/14/19 (unknown) (no (unknown) (unknown) rizatriptan 5 mg (units (unknown) date) tablet 5 mg PO ONCE unknown) 05/09/19 05/09/19 (unknown) (no (unknown) (unknown) rizatriptan 5 mg (units (unknown) date) tablet unknown) (unknown) (no (unknown) (unknown) rizatriptan (units (un known) date) [Maxalt] 10 mg unknown) tablet (unknown) (no (unknown) (unknown) subcutaneous (units (u nknown) date) syringe (Emgality) unknown) (unknown) (no (unknown) (unknown) tablet (Micardis (units (unknown) date) HCT) unknown) (unknown) (no (unknown) (unknown) take 1 tab at onset (unit s (unknown) date) of headache; if no unknown) relief may repeat 1 tab in 2hr; max = (unknown) (no (unknown) (unknown) tearful, obviously (units (unknown) date) uncomfortable unknown) (unknown) (no (unknown) (unknown) telmisartan 80 1 (units (unknown) date) tab PO DAILY unknown) 05/09/19 05/09/19 (unknown) (no (unknown) (unknown) telmisartan-hydroch (unit s (unknown) date) lorothiazid unknown) [Micardis HCT] 80-25 mg tablet (unknown) (no (unknown) (unknown) the other. She (units (unknown) date) denies any midline unknown) pain. She has no chest pain or shortness of (unknown) (no (unknown) (unknown) this emergency (units (unknown) date) department visit. unknown) (unknown) (no (unknown) (unknown) this. Many people (units (unknown) date) get constipated on unknown) narcotic medications so it would be (unknown) (no (unknown) (unknown) through your (units (u nknown) date) Primary Care unknown) Provider (unknown) (no (unknown) (unknown) tingling or (units (un known) date) weakness. She does unknown) have pain in the paraspinal musculature with (unknown) (no (unknown) (unknown) tonsillar (units (unkn own) date) hypertrophy or unknown) exudate. Airway patent. (unknown) (no (unknown) (unknown) verapamil 120 mg (units (unknown) date) tablet extended unknown) release (unknown) (no (unknown) (unknown) verapamil 120 mg (units (unknown) date) tablet,extended 120 unknown) mg PO DAILY #90 tabs 02/24/20 (unknown) (no (unknown) (unknown) which does not seem (unit s (unknown) date) to be helping. She unknown) denies any trauma or injury. She is had (unknown) (no (unknown) (unknown) with medications (units (unknown) date) given, added unknown) opioids, steroids and gabapentin to her regimen, (unknown) (no (unknown) (unknown) worsening pain, (units (unknown) date) persistent vomiting unknown) or other bothersome symptoms] Social History date description facility 2023-01-03 00:[facility] Vital Sign[facility] date measurement value units 2023-01-03 00:00 BMI 27.4 kg/m2 2023-01-03 00:00 BP_diastolic 91 mmHg 2023-01-03 00:00 BP_systolic 136 mmHg 2023-01-03 00:00 heart_rate 75 /min 2023-01-03 00:00 height_metric 152.4 cm 2023-01-03 00:00 height_standard 60 in 2023-01-03 00:00 o2_saturation 99 % 2023-01-03 00:00 respiration_rate 16 /min 2023-01-03 00:00 temperature_metric 36.5 C 2023-01-03 00:00 temperature_standard 97.7 F 2023-01-03 00:00 weight_metric 63.82 kg 2023-01-03 00:00 weight_standard 140.7 lb
[2023-01-06 00:13] LABS: BASOPHILS % (AUTO) 0.2 %; HCT - HEMATOCRIT 37.2 % (37.0-47.0); HGB - HEMOGLOBIN 12.6 g/dL (12.0-16.0); LYMPHOCYTES # (AUTO) 1.1 10^3/uL (1.5-3.5); LYMPHOCYTES % (AUTO) 7.8 %; MEAN CORPUSCULAR HEMOGLOBIN 30.4 pg (27.0-31.0); MEAN CORPUSCULAR HGB CONC 33.9 g/dL (32.0-36.0); MEAN CORPUSCULAR VOLUME 89.6 fL (81.0-99.0); MONOCYTES # (AUTO) 0.4 10^3/uL (0.0-1.0); MONOCYTES % (AUTO) 3.1 %; NEUTROPHILS # (AUTO) 11.9 10^3/uL (1.5-6.6); NEUTROPHILS % (AUTO) 88.3 %; PLT - PLATELET COUNT 282 10^3/uL (130-450); RED BLOOD COUNT 4.15 10^6/uL (4.20-5.40); WHITE BLOOD COUNT 13.5 x10^3/uL (4.8-10.8)
--- NOTE | 2023-01-06 00:40 | XRAY Report ---
PROCEDURE: Chest 1 View X-Ray INDICATIONS: CP TECHNIQUE: One view of the chest was acquired. COMPARISON: CXR 01/08/2021. FINDINGS: Surgical changes and devices: None. Lungs and pleura: No pleural effusions or pneumothorax. Lungs are clear. Mediastinum: Mediastinal contours appear normal. Heart size is normal. Bones and chest wall: No suspicious bony lesions. Overlying soft tissues appear unremarkable. IMPRESSION: No acute cardiopulmonary abnormality. Reviewed by: Henrry George MD on 01/06/2023 12:39 AM PDT Approved by: Henrry George MD on 01/06/2023 12:39 AM PDT Station ID: [id number]
[2023-01-06 01:06] LABS: ALBUMIN 4.2 g/dL (3.2-5.5); ALBUMIN/GLOBULIN RATIO 1.6 (1.0-2.2); BILIRUBIN,TOTAL 0.3 mg/dL (0.2-1.0); CALCIUM 9.2 mg/dL (8.5-10.3); CREATININE 0.6 mg/dL (0.4-1.0); POTASSIUM 3.6 mmol/L (3.5-5.0); TOTAL PROTEIN 6.9 g/dL (6.7-8.2)
--- NOTE | 2023-01-06 01:32 | ED Physician Documentation ---
PD HPI CHEST PAIN - Stated complaint Stated Complaint: CHEST PX - Chief complaint Chief Complaint: Cardiac - History obtained from History obtained from: Patient - Additional information Additional information: Patient is a 42-year-old female presenting for evaluation of epigastric abdominal pain that radiated to the chest and felt like a squeezing sensation starting around 10 PM. She reports she had just taken a dose of a steroid which she is taking for pain in her neck. She was seen earlier this week at [facility] in [place] and given medications for neck issues which she has been dealing with for years including pain medicine, muscle relaxers and Medrol pack.She states that shortly after taking her dose of the steroid tonight she started feeling a discomfort in her abdomen that radiated into her chest and felt like a squeezing tightness. It lasted approximately 20 minutes. It has since resolved and she currently denies having any chest pain. She denies any associated shortness of breath. She did have an episode of nausea and emesis and reports feeling better after this in regards to the chest pain.She has a history of hypertension. She denies a history of known coronary artery disease. She denies a history of PE or DVT. Review of Systems Constitutional: denies: Fever Cardiac: reports: Chest pain / pressure Respiratory: denies: Dyspnea GI: reports: Nausea, Vomiting : denies: Dysuria Musculoskeletal: denies: Back pain Neurologic: denies: Headache PD PAST MEDICAL HISTORY - Past Medical History Past Medical History: Yes Cardiovascular: Hypertension, High cholesterol Respiratory: None Neuro: None Endocrine/Autoimmune: Other GI: None MAP COLORER: None : Kidney stones HEENT: None Psych: Depression Musculoskeletal: None Derm: None, Herpes zoster - Past Surgical History Past Surgical History: Yes General: Cholecystectomy /MAP COLORER: Hysterectomy - Present Medications Home Medications: Ambulatory Orders Medication Instructions Recorded Confirmed Telmisartan [Micardis] 80 mg PO DAILY 05/01/15 01/02/21 Verapamil ER [Calan SA] 120 mg PO DAILY 08/07/19 01/02/21 Galcanezumab-Gnlm [Emgality] 120 mg SQ ONCE 01/02/21 01/02/21 lisinopriL [Prinivil] 5 mg PO DAILY 01/02/21 01/02/21 cephALEXin [Keflex] 500 mg PO Q6H #28 01/08/21 - Allergies Allergies/Adverse Reactions: Allergies Allergy/AdvReac Type Severity Reaction Status Date / Time No Known Drug Allergies Allergy Verified 01/05/23 23:39 - Social History Does the pt smoke?: No Smoking Status: Never smoker Does the pt drink ETOH?: Yes Does the pt have substance abuse?: No - Immunizations Immunizations are current?: Yes - POLST Patient has POLST: No PD ED PE NORMAL - General General: Alert and oriented X 3, No acute distress, Well developed/nourished - HEENT HEENT: Atraumatic - Neck Neck: Supple, no meningeal sign - Cardiac Cardiac: RRR, No murmur, Strong equal pulses - Respiratory Respiratory: No respiratory distress, Clear bilaterally - Abdomen Abdomen: Normal bowel sounds, Soft, Non tender, Non distended - Derm Derm: Warm and dry - Extremities Extremities: No edema, No calf tenderness / cord - Neuro Neuro: Normal speech Results - Vitals Vitals: Vital Signs - 24 hr 01/05/23 01/05/23 01/06/23 23:39 23:41 01:41 Temperature 36.5 C Heart Rate 70 67 69 Respiratory 18 16 16 Rate Blood Pressure 180/90 H 168/103 H 157/81 H O2 Saturation 99 99 97 01/06/23 01/06/23 03:00 03:40 Temperature 36.9 C Heart Rate 66 65 Respiratory 16 20 Rate Blood Pressure 128/85 H 124/85 H O2 Saturation 99 100 Oxygen O2 Source Room air - EKG (time done) 2341 EKG releavant findings:: EKG personally interpreted by author of this note. Relevant findings are: Rate 90, normal sinus rhythm, no STEMI, QTc 440 Rate: Rate (enter#) (90) Rhythm: NSR Intervals: No: Prolonged QT Ischemia: No: ST elevation c/w ischemia - Labs Labs: Laboratory Tests 01/05/23 01/05/23 01/05/23 23:59 23:59 23:59 WBC 13.5 H RBC 4.15 L Hgb 12.6 Hct 37.2 MCV 89.6 MCH 30.4 MCHC 33.9 RDW 12.0 Plt Count 282 MPV 10.0 Neut # (Auto) 11.9 H Lymph # (Auto) 1.1 L [place] # (Auto) 0.4 Eos # (Auto) 0.0 Baso # (Auto) 0.0 Absolute Nucleated RBC 0.00 Nucleated RBC % 0.0 Sodium 137 Potassium 3.6 Chloride 102 Carbon Dioxide 25 Anion Gap 10.0 BUN 29 H Creatinine 0.6 Estimated GFR (MDRD) 110 Glucose 128 H Calcium 9.2 Total Bilirubin 0.3 AST 30 ALT 33 Alkaline Phosphatase 49 Troponin I High Sens 3.4 Total Protein 6.9 Albumin 4.2 Globulin 2.7 Albumin/Globulin Ratio 1.6 Lipase 35 01/06/23 03:05 WBC RBC Hgb Hct MCV MCH MCHC RDW Plt Count MPV Neut # (Auto) Lymph # (Auto) [place] # (Auto) Eos # (Auto) Baso # (Auto) Absolute Nucleated RBC Nucleated RBC % Sodium Potassium Chloride Carbon Dioxide Anion Gap BUN Creatinine Estimated GFR (MDRD) Glucose Calcium Total Bilirubin AST ALT Alkaline Phosphatase Troponin I High Sens 3.9 Total Protein Albumin Globulin Albumin/Globulin Ratio Lipase PD Medical Decision Making - ED course Complexity details: reviewed results, re-evaluated patient, d/w patient, d/w family ED course: Patient presenting for evaluation of epigastric pain that radiated to her chest and has since resolved.Her EKG is reassuring with no signs of acute ischemia. Chest x-ray which I reviewed is negative for pneumothorax, effusion, consolidation or cardiomegaly. CBC, chemistries and troponin were also obtained and reviewed by me with no significant findings. She is low risk based on the heart score. She has a PERC negative. Her symptoms have resolved which I feel makes dissection less likely.Patient was observed in the emergency department for several hours without recurrence of her symptoms.She has not had any worsening symptoms to suggest unstable angina. A second troponin is also negative. Feel at this time that she is stable for close outpatient follow-up with her PCP. She is advised on concerning symptoms to return for. 0200 - Patient has been resting comfortably with no pain. Discussed initial round of labs with patient and her . Aware of plan for second troponin at 3 AM Departure - Departure Disposition: 01 Home, Self Care Clinical Impression: Chest pain Condition: Stable Instructions: ED Chest Pain Atypical Unkn Cause Comments: The exact cause of your chest pain tonight is unclear but at this time your testing at regarding your heart is reassuring and there is no signs of a heart attack tonight. However I would still recommend close follow-up with your primary care doctor as you may need further testing. If it anytime you have any new or recurrent symptoms please consider return to the emergency department. Discharge Date/Time: 01/06/23 03:46
[2023-01-06 03:47] VITALS: BP 124/85
== END 2023-01-06 03:46 | disposition home or self-care (01) ==
LOC: ED 23:36
DX: R07.9 Chest pain, unspecified (principal)
CPT/HCPCS: 36415; 80053; 83690; 84484; 85025; 93005; 99283; 99284

== ENCOUNTER 2023-12-19 15:18 | Outpatient (CLI) | payer OTHER ==
--- NOTE | 2023-12-19 16:14 | SLEEP CARE CONSULTATION ---
Information from patient questionnaire entered by Gabino Del Valle. I have reviewed and concur with the information entered by Gabino Del Valle. This document represents the service I personally performed and the decisions made by me, Mary Ann Casillas ARNP. History of Present Illness Service Date and Time: 12/19/2023 1518 Reason for Visit: New patient Accompanied by: daughter Chief Complaint: reports: Unrefreshed sleep, Fatigue, Frequent awakenings at night, Other (HIGH BP) Date of Onset: YEARS Usual bedtime: 2100 Time it takes to fall asleep: 1.5HRS Snores at night: Yes Observed to quit breathing while asleep: No Sleeps alone due to snoring: No Number of times waking at night: 3 Reasons for waking at night: reports: Pain, Bathroom. denies: Choking, Gasping for air Toss, Turn, or Twitch while sleeping: Yes Recalls having dreams: Yes (sometimes) Usually gets out of bed at: 0700; weekends latest of 10 AM Feels refreshed in the morning: No Morning headache: Yes (1 time a week, last 1-2 hours) Sleepy or fatigued during the day: Yes Ever fallen asleep while driving: No Takes day naps: No Dreams during day naps: No Prior sleep studies: No Additional HPI information: I had the pleasure of seeing LUCILLE ALICEA today regarding the possibility of her having a sleep disorder. Her current complaints are high blood pressure, fatigue, frequent night awakenings and unrefreshed sleep. Her primary doctor referred her here to see if she has sleep disordered breathing contributing to her high blood pressure. She has a history of migraines, clenching teeth at [facility] and RLS. She feels her awakening every 3 hours is due to neck pain and then she is tired in the morning because of waking frequently and poor sleep. Her daughter has told her that she snores loudly sometimes and other times medical device snoring. She has not observed pauses in breathing. She lays down about 9 PM and can take up to 1.5 hours to fall asleep. She feels this is due to trying to find a comfortable position and lately she is waking up "hot". She says her mother has sleep apnea and has a CPAP but does not use it regularly. - Parasomnia Symptoms Ever been unable to move upon waking from sleep: No Walks in sleep: No Talks in sleep: Yes Ever acted out dreams in sleep: No Ever felt weak in the knees when startled or emotional: No Bothered by creepy, crawly, restless sensations in legs: Yes (has RLS; only happens at night) Problems with memory or concentration: Yes (both; Has inattentive ADHD) Subjective Initial [place] Sleepiness Scale score: 9 (12/16/23) Past Medical History Past Medical History: reports: Hypertension, Anxiety, Attention deficit, Other (2 c-sections; partial hysterectomy; gall bladder removal; disc degenerative disease) Social History 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 Patient is and lives in [place]. Have you smoked in the past 12 months: No Cigarettes per day (20/pack): 10 Years of smokin Quit date: 2017 Smoking Pack Years: 7.5 Alcohol use: Yes Alcohol amount and frequency: 1 GLASS A WEEK Caffeine use: Yes Caffeine amount and frequency: DAILY Family History Family history of sleep disordered breathing: Yes Family Hx Sleep Apnea: Mother: Sleep apnea - Treated, Sibling: Sleep apnea - Untreated Allergies and Home Medications Known drug allergies: No Drug allergies reviewed: Yes Home medication list reviewed: Yes (as listed) Allergy and home medication list: Allergies No Known Drug Allergies Allergy (Verified 12/15/23 14:19) Home Medications Medication Instructions Recorded Confirmed Last Taken Type Amlodipine Besylate [Norvasc] See Rx Instructions .ROUTE .COMPLEX 12/19/23 12/19/23 Unknown History Lisdexamfetamine Dimesylate See Rx Instructions .ROUTE .COMPLEX 12/19/23 12/19/23 Unknown History [Vyvanse] Losartan Potassium See Rx Instructions .ROUTE .COMPLEX 12/19/23 12/19/23 Unknown History Sertraline [Zoloft] See Rx Instructions .ROUTE .COMPLEX 12/19/23 12/19/23 Unknown History hydroCHLOROthiazide [Hydrodiuril] See Rx Instructions .ROUTE .COMPLEX 12/19/23 12/19/23 Unknown History Review of Systems Cardiovascular: reports: high blood pressure Gastrointestinal: denies: heartburn Neurological: reports: headaches Psychiatric: reports: Attention Deficit Hyperactivity, anxiety Ear/Nose/Throat: reports: wisdom teeth removed. denies: tonsillectomy Endocrine: reports: too hot or cold, excessive thirst. denies: thyroid disease Musculoskeletal: reports: neck pain, muscle pain or cramping Physical Exam Vital signs obtained and entered by: GABINO Staley MA Blood Pressure: 136/90 (LEFT ARM) Cuff size: regular Heart Rate: 86 O2 Saturation: 97 Height: 5 ft Weight: 148 lb Body Mass Index: 28.9 BMI Classification: Overweight Neck circumference: 13.5 Mouth and throat: narrow oropharynx Soft palate: normal Hard palate: normal Uvula: normal Uvula visualization: 50% Mallampati Class II Tongue: enlarged in size with teeth [place] on lateral edges Tonsils: 1+ Neck: normal w/o lymphadenopathy or thyromegaly Heart: regular rate and rhythm Lungs: clear bilaterally Impression and Plan 1. Suspected Obstructive Sleep Apnea-Hypopnea Syndrome, as suggested by a history of loud and irregular snoring, morning headache, frequent awakening during the night, unrefreshed sleep and cognitive impairment. Narrow oropharynx and obesity are common predisposing factors for obstructive sleep apnea-hypopnea syndrome. I recommend proceeding to polysomnography to confirm the diagnosis and to assess severity. If the patient has significant sleep disordered breathing, a manual CPAP titration study will also be performed to find the optimal treatment pressure. I informed the patient of what the sleep studies involve and after some discussion, obtained agreement to proceed. The pathophysiology of obstructive sleep apnea-hypopnea syndrome was discussed with the patient and health risks of cardiovascular and cerebrovascular disease if not treated. Risks of drowsy driving discussed in detail and patient advised to avoid long distance driving and to fur puller at the first sign of drowsiness. Patient agreed to plan. * Schedule polysomnography. * Avoid long distance driving or driving when feeling sleepy. * Avoid alcohol, sedative and muscle relaxant around bedtime. * Attempt to lose weight. * Review instructions provided by trained office staff on how to prepare for the sleep study. * Return for follow-up after sleep study completed. Counseling Topics: Weight loss health impact Plan: PSG and follow up Visit Type: In Office Time Spent with Patient (minutes): 30 Provider Statement: I spent 100% of the Face to Face Visit with the patient with greater than 50% spent counseling the patient and coordination of care.
--- NOTE | 2023-12-19 16:15 | Sleep Patient Instructions ---
Sleep Center Visit Summary - Patient Visit Information Reason for Visit: Initial consult for evaluation of sleep disordered breathing and other sleep issues. - Patient Instructions Instructions Attached: Sleep Study, Sleep Study Home Monitor Additional Instructions: You will be completing a sleep study, either an in-lab polysomnography (PSG) or home sleep study (HST). You will follow-up in the sleep care office after the sleep study is completed to hear the results and talk about therapy, if needed. You will be called by our office staff to schedule this appointment, but you may contact us with any questions. - Clinic Information Contact: [facility] [address] [place] [id number] [email or web address] T: [phone]
[2023-12-19 16:25] VITALS: BP 136/90; O2SAT 97
== END 2023-12-19 15:19 | disposition home or self-care (01) ==
LOC: SC 15:18
PROVIDERS: ATTEND Nurse Practitioner Family
DX: R06.83 Snoring (principal); R51.9 Headache, unspecified; G47.8 Other sleep disorders; R41.89 Other symptoms and signs involving cognitive functions and awareness; I10 Essential (primary) hypertension; F17.210 Nicotine dependence, cigarettes, uncomplicated
CPT/HCPCS: 99203; 99212

== ENCOUNTER 2024-01-26 19:41 | Outpatient (CLI) | payer OTHER | END 2024-01-26 19:42 | disposition home or self-care (01) | LOC: SC 19:41 | PROVIDERS: ATTEND Nurse Practitioner Family | DX: R06.83 Snoring (principal); G47.8 Other sleep disorders; R51.9 Headache, unspecified; R53.83 Other fatigue; I10 Essential (primary) hypertension; E66.3 Overweight; Z68.28 Body mass index [BMI] 28.0-28.9, adult | CPT/HCPCS: 95810 ==

== ENCOUNTER 2024-02-15 11:41 | Outpatient (CLI) | payer OTHER ==
--- NOTE | 2024-02-15 11:57 | Sleep Patient Instructions ---
Sleep Center Visit Summary - Patient Visit Information Reason for Visit: Sleep study follow-up - Patient Instructions Additional Instructions: Your sleep study today was negative for significant sleep disordered breathing. However, you did have elevated respiratory episodes when sleeping on your back. You should avoid sleeping on your back to control these respiratory episodes. You were found to have episodes of snoring. There are different ways to control snoring including weight loss, oral devices made by a dentist or surgical options through ENT specialist. You should not use oral devices that do not fit properly because they can affect your bite. You should also check insurance coverage of oral devices for snoring because they may not be cover well. You may obtain a referral to an ENT specialist through your primary provider. Follow-up as needed. - Clinic Information Contact: [facility] [address] [place] [address] [email or web address] T: [phone]
--- NOTE | 2024-02-15 12:01 | SLEEP CARE CONSULTATION ---
Information from patient questionnaire entered by Елена Del Valle. I have reviewed and concur with the information entered by Елена Del Valle. This document represents the service I personally performed and the decisions made by , Mary Ann Casillas ARNP. History of Present Illness Service Date and Time: 02/15/2024 114 Initial [place] Sleepiness Scale score: 9 (12/16/23) Current [place] Sleepiness Scale score: 6 (02/15/24) Additional HPI information: LUCILLE ALICEA returns for follow up and results of the recently performed polysomnography. The patient was informed of the following findings: No significant sleep disordered breathing with an average AHI of 2.2 and evan oxygen saturation of 91%. I explained the pathophysiology behind obstructive sleep apnea. Patient does not have sleep apnea and was advised how weight gain could increase the risk of developing sleep apnea in the future. I strongly encouraged the patient to lose weight. Patient does not have significant sleep disordered breathing but has elevated AHI in supine position so advised positional therapy. Methods to achieve positional management therapy were discussed; such as, positioning with pillows, wearing a T-shirt with tennis balls sewn into the back or commercially available products. Patient has light to moderate snoring. Snoring can be reduced by weight loss. Weight loss is best achieved with diet consult. Patient instructed to contact PCP for referral. Snoring can also be treated with an oral appliance from a dentist. Advised to check insurance coverage. In addition, an ENT evaluation can be do to see if other treatment is indicated. Patient counseled not drink alcohol less than 4 hours before bedtime as it can increase snoring and apnea. Patient was cautioned about risks of drowsy driving until sleepiness symptoms resolve. Patient denies drowsy driving. Sleep Study - Results Type of Sleep Study: Polysomnography (COMPLETED 01/26/24) Prior sleep studies: No Polysomnography/Home Sleep Study results: IMPRESSION: The quality of the study is good. The patient had normal sleep efficiency. The sleep architecture was relatively normal as well considering the first night effect. Respiratory monitoring showed no significant sleep disordered breathing (AHI = 2.2) or hypoxia (evan oxygen saturation of 91%). The few respiratory events occurred almost exclusively during supine sleep (supine AHI = 5.4; non-supine = 1.20). Snore was light to moderate in intensity. There was no significant periodic leg movement of sleep. Cardiac rhythm was normal sinus rhythm without significant arrhythmia. No abnormal behavior (parasomnia) observed during the night. Allergies and Home Medications Known drug allergies: No Drug allergies reviewed: Yes Home medication list reviewed: Yes (no changes) Allergy and home medication list: Allergies No Known Drug Allergies Allergy (Verified 02/12/24 13:04) Review of Systems Review of systems same as previous: Yes (NO CHANGE) Physical Exam Vital signs obtained and entered by: ЕЛЕНА Staley MA Blood Pressure: 139/90 (RIGHT ARM) Cuff size: regular Heart Rate: 88 O2 Saturation: 99 Height: 5 ft Weight: 158 lb Body Mass Index: 30.8 BMI Classification: Obese Impression and Plan 1. Snoring but no significant sleep disordered breathing. However, patient has minimal elevation of AHI when sleeping supine. Patient should avoid sleeping on her back. She voiced understanding. Patient advised that often weight loss will reduce snoring as well as apnea risk. An oral appliance can also be used for snoring. This would require a dental consultation. Patient cautioned not to use other online appliances as can cause bite issues. Patient is advised to check if insurance will cover. An ENT consult can also be helpful to determine if any other treatment is an option. 2. Obesity, unspecified. Currently patients BMI is 30.8. Obesity increases the risk of apnea, CPAP pressure requirements and overall health risks especially cardiovascular and diabetes. Thus patient is advised to lose weight. * Avoid sleeping supine * Attempt to lose weight * Avoid alcohol consumption near bedtime * The patient is cautioned about driving until sleepiness is completely resolved. * Return as needed for follow up. Counseling Topics: Sleeping position, Weight loss health impact Follow up with Sleep Care in: as needed Visit Type: In Office Time Spent with Patient (minutes): 20 Provider Statement: I spent 100% of the Face to Face Visit with the patient with greater than 50% spent counseling the patient and coordination of care.
[2024-02-15 12:10] VITALS: BP 139/90; O2SAT 99
== END 2024-02-15 11:42 | disposition home or self-care (01) ==
LOC: SC 11:41
PROVIDERS: ATTEND Nurse Practitioner Family
DX: R06.83 Snoring (principal); E66.9 Obesity, unspecified; Z68.30 Body mass index [BMI] 30.0-30.9, adult
CPT/HCPCS: 99212; 99213